=== PATIENT | female | born 1975 | race Caucasian/White ===

== ENCOUNTER 2017-04-09 14:56 | Emergency (ER) | payer MEDICAID, SELFPAY ==
[2017-04-09 15:18] VITALS: BP 148/92; PULSE 94; RESP 20; TEMP 36.8; O2SAT 100; BMI 29.0
--- NOTE | 2017-04-09 15:58 | HMH.EDUTC ---
[facility] [place] Disposition Clinical Impression: Carpal tunnel syndrome of left wrist Disposition: Home, Self-Care Condition on Discharge: Good Instructions: DI for Carpal Tunnel Syndrome Additional Instructions: Read attached education Wrist splint again for immobilization Elevate Ibuprofen as needed Follow up with ortho again. might be time to consider the surgery unless you have the option of changing your job See workman's comp form Referrals: Vikas Rivrea MD [Staff Physician] - (Call tomorrow and schedule follow up appointment. Be sure they know you were here so they can review the xray. You shouldn't have any problem since you were a patient there recently. If so, be sure to let me know.) Time of Disposition: 17:46 Medical Decision Making Vital Signs: 04/09/17 15:18 04/09/17 17:54 Temperature 98.3 F 98 F Temperature Source Temporal Artery Scan Pulse Rate 77 Pulse Rate [Right Brachial] 94 H Respiratory Rate 20 20 Blood Pressure 127/77 Blood Pressure [Right Arm] 148/92 Blood Pressure Mean [Right Arm] 110 Blood Pressure Source [Right Arm] Automatic Cuff Blood Pressure Position [Right Arm] Sitting 02 Sat by Pulse Oximetry 100 Oxygen Delivery Method Room Air - Radiology Data #1 Image(s): Wrist Image Reviewed: Yes I reviewed the patient's radiology image w/the ED provider Rvwd with ELENA Canales MD. No acute findings - [place] Inquiry Pt receiving controlled substance: No [facility] [place] HPI - General Stated complaint: left wrist pain Time Seen by Provider: 04/09/17 15:58 Mode of Arrival: Ambulatory Source of Information: Patient Limitations: No Limitations Description of Symptoms (Recalled from Triage Doc. by RN): PT C/O LEFT WRIST PAIN THAT SHE BELIEVES IS D/T HER CARPAL TUNNEL HEENT Symptoms (Recalled from RN notes): No Resp Symptoms (Recalled from RN notes): No Skin Symptoms (Recalled from RN notes): No MS Symptoms (Recalled from RN notes): Yes (LEFT WRIST PAIN) Functional Status (Recalled from RN notes): N/A - History of Present Illness Provider Complaint: c/o left wrist pain again. Hx of same pain. Saw ortho Jan 2017. Reports Dr. Rivera suggested she have CTS release but went symptoms resolved once moved to a new position at work, she canceled surgery. She was moved back to old position 2 weeks ago and after only 2-3 days, pain returned. She requested to be moved and again, pain resolved. Yesterday she went back to old job again and within hours while lifting a track out of a back, she felt a pop in her left wrist and pain was immediately back again. Accompanied with N/T feeling digits 3-5 as has been in the past. Denies swelling or limited ROM. Did report this at work. they moved her to a new job the remainder of the day then she called in today to get seen. No treatment prior to arrival. Denies having splints for wrists. insurance wouldn't pay for me to get them last time . - Related Data Home Medications Medication Instructions Recorded Confirmed [id number]-[id number] 2 cap PO Q4H PRN 03/26/17 50 mg-300 mg-40 mg capsule lisinopril 20 mg tablet 20 mg PO QDAY 03/26/17 quetiapine 300 mg tablet See Label Instructions PO ONCE 03/26/17 sertraline 100 mg tablet 100 mg PO BID tab 03/26/17 Allergies Allergy/AdvReac Type Severity Reaction Status Date / Time No Known Allergies Allergy Verified 03/26/17 08:52 - Worker's Comp Is this a Worker's Comp case?: Yes Is this an H Worker's Comp?: No Is this a [place] Worker's Comp?: No [facility] History I have reviewed the patient's past medical history: Yes Medical History: Reports:: Depression, Hypertension Denies:: Cancer, Diabetes Mellitus Type 1, Diabetes Mellitus Type 2, MRSA Other Medical History: Reports: Other (bipolar, insomia) Other Surgeries: Yes: Tubal Ligation Amputation: No - *Social History Smoking Status: Current every day smoker Tobacco Type: cigarettes Alcohol Intake: never - Psychiat
--- NOTE | 2017-04-09 16:09 | XR_ITS ---
XR wrist LT min 3V HISTORY: Posttraumatic pain ITS.REASON: hx CTS, felt pop at work yesterday, pain since ORDERING PHYSICIAN: Kingsley Tomlinson PATIENT AGE: 41 years COMPARISON: None FINDINGS: No fracture or dislocation. No lytic or blastic change. There is normal mineralization.. The joint spaces are well-preserved. No significant degenerative/arthritic changes. No erosive changes evident.. IMPRESSION: Negative wrist
--- NOTE | 2017-04-09 16:09 | ED_ITS ---
[facility] [place] Clinical Impression: Carpal tunnel syndrome of left wrist Disposition: Home, Self-Care Condition on Discharge: Good Instructions: DI for Carpal Tunnel Syndrome Additional Instructions: Read attached education Wrist splint again for immobilization Elevate Ibuprofen as needed Follow up with ortho again. might be time to consider the surgery unless you have the option of changing your job See workman's comp form Referrals: Vikas Rivera MD [Staff Physician] - (Call tomorrow and schedule follow up appointment. Be sure they know you were here so they can review the xray. You shouldn't have any problem since you were a patient there recently. If so, be sure to let me know.) Time of Disposition: 17:46 Medical Decision Making Vital Signs: 04/09/17 15:18 04/09/17 17:54 Temperature 98.3 F 98 F Temperature Source Temporal Artery Scan Pulse Rate 77 Pulse Rate [Right Brachial] 94 H Respiratory Rate 20 20 Blood Pressure 127/77 Blood Pressure [Right Arm] 148/92 Blood Pressure Mean [Right Arm] 110 Blood Pressure Source [Right Arm] Automatic Cuff Blood Pressure Position [Right Arm] Sitting 02 Sat by Pulse Oximetry 100 Oxygen Delivery Method Room Air - Radiology Data #1 Image(s): Wrist Image Reviewed: Yes I reviewed the patient's radiology image w/the ED provider Rvwd with ELENA Canales MD. No acute findings - [place] Inquiry Pt receiving controlled substance: No [facility] [place] HPI - General Stated complaint: left wrist pain Time Seen by Provider: 04/09/17 15:58 Mode of Arrival: Ambulatory Source of Information: Patient Limitations: No Limitations Description of Symptoms (Recalled from Triage Doc. by RN): PT C/O LEFT WRIST PAIN THAT SHE BELIEVES IS D/T HER CARPAL TUNNEL HEENT Symptoms (Recalled from RN notes): No Resp Symptoms (Recalled from RN notes): No Skin Symptoms (Recalled from RN notes): No MS Symptoms (Recalled from RN notes): Yes (LEFT WRIST PAIN) Functional Status (Recalled from RN notes): N/A - History of Present Illness Provider Complaint: c/o left wrist pain again. Hx of same pain. Saw ortho Jan 2017. Reports Dr. Rivera suggested she have CTS release but went symptoms resolved once moved to a new position at work, she canceled surgery. She was moved back to old position 2 weeks ago and after only 2-3 days, pain returned. She requested to be moved and again, pain resolved. Yesterday she went back to old job again and within hours while lifting a track out of a back, she felt a pop in her left wrist and pain was immediately back again. Accompanied with N/T feeling digits 3-5 as has been in the past. Denies swelling or limited ROM. Did report this at work. they moved her to a new job the remainder of the day then she called in today to get seen. No treatment prior to arrival. Denies having splints for wrists. insurance wouldn't pay for me to get them last time . - Related Data Home Medications Medication Instructions Recorded Confirmed [id number]-vmtrlruvcuzqj-[id number] 2 cap PO Q4H PRN 03/26/17 50 mg-300 mg-40 mg capsule lisinopril 20 mg tablet 20 mg PO QDAY 03/26/17 quetiapine 300 mg tablet See Label Instructions PO ONCE 03/26/17 sertraline 100 mg tablet 100 mg PO BID tab 03/26/17 Allergies Allergy/AdvReac Type Severity Reaction Status Date / Time No Known Allergies Allergy Verified 03/26/17 08:52
--- NOTE | 2017-04-09 16:39 | PC.NURSE ---
PT RETURNED FROM XRAY AT THIS TIME.
[2017-04-09 17:54] VITALS: BP 127/77; PULSE 77; RESP 20; TEMP 36.6; O2SAT 98
== END 2017-04-09 17:55 | disposition home or self-care (01) ==
PROVIDERS: Emergency Provider Nurse Practitioner Family; Family Provider Emergency Medicine
DX: G56.02 Carpal tunnel syndrome, left upper limb (principal); I10 Essential (primary) hypertension; F17.210 Nicotine dependence, cigarettes, uncomplicated; X50.0XXA Overexertion from strenuous movement or load, initial encounter; Y92.69 Other specified industrial and construction area as the place of occurrence of the external cause; Y99.0 Civilian activity done for income or pay
CPT/HCPCS: 29125; 73110; 99202

== ENCOUNTER → 2017-07-25 10:34 | Outpatient (CLI) | payer MEDICAID, SELFPAY ==
[2017-07-25 10:57] LABS: Basophils # 0.1 K/mm3 (0-0.2); Basophils % 0.8 % (0.1-2.0); Eosinophils # 0.3 K/mm3 (0.0-0.4); Eosinophils % 3.2 % (0.1-12.0); Hematocrit 45.7 % (37.0-47.0); Hemoglobin 14.8 g/dL (12.2-16.2); Lymphocytes # 2.7 K/mm3 (0.7-4.5); Lymphocytes % 34.3 K/mm3 (10-50); Mean Corpuscular HGB Conc 32.4 g/dL (31.8-35.4); Mean Corpuscular Hemoglobin 29.1 pg (27.0-31.2); Mean Corpuscular Volume 89.6 fl (81-99); Monocytes # 0.5 K/mm3 (0.1-1.0); Monocytes % 6.7 % (1.7-9.3); Neutrophils # 4.4 K/mm3 (1.8-7.8); Platelet Count 275 K/mm3 (142-424); Red Cell Distribution Width 13.7 % (11.5-17.5); White Blood Count 7.9 K/mm3 (4.8-10.8)
[2017-07-25 11:10] LABS: Urine Pregnancy, HCG Qual. Negative (Negative)
[2017-07-25 11:39] LABS: Anion Gap 10.6 mEq/L (5-15); Blood Urea Nitrogen 11 mg/dL (7-18); Carbon Dioxide 30 mmol/L (21.0-32.0); Chloride 102 mmol/L (98-107); Creatinine,Serum 0.76 mg/dL (0.55-1.02); Estimated Glomerular Filt Rate 83 ml/min (>60); GFR (African American) 101 ML/MIN (>60); Potassium 4.6 mmoL/L (3.5-5.1); Sodium 138 mmol/L (136-145)
[2017-07-25 11:46] LABS: Glucose 97 mg/dL (74-106)
== END ==
PROVIDERS: Visit Provider Emergency Medicine
DX: Z01.818 Encounter for other preprocedural examination (principal); G56.02 Carpal tunnel syndrome, left upper limb
CPT/HCPCS: 36415; 80048; 81025; 85025; 93005

== ENCOUNTER 2020-05-04 21:10 | Emergency (ER) | payer MEDICAID, SELFPAY ==
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
[2020-05-04 21:20] VITALS: BP 158/100; PULSE 110; RESP 18; TEMP 36.4; O2SAT 100; BMI 31.6
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
[2020-05-04 21:34] LABS: Basophils # 0.1 K/mm3 (0-0.2); Basophils % 0.4 % (0.1-2.0); Eosinophils # 0.3 K/mm3 (0.0-0.4); Eosinophils % 1.9 % (0.1-12.0); Hematocrit 44.2 % (37.0-47.0); Hemoglobin 14.6 g/dL (12.2-16.2); Lymphocytes # 2.3 K/mm3 (0.7-4.5); Lymphocytes % 15.6 % (10-50); Mean Corpuscular HGB Conc 32.9 g/dL (31.8-35.4); Mean Corpuscular Hemoglobin 28.9 pg (27.0-31.2); Mean Corpuscular Volume 87.7 fl (81-99); Mean Platelet Volume 7.9 fl (7.4-10.4); Monocytes # 0.6 K/mm3 (0.1-1.0); Monocytes % 4.3 % (1.7-9.3); Neutrophils # 11.6 K/mm3 (1.8-7.8); Neutrophils % 77.8 % (37.0-80.0); Platelet Count 274 K/mm3 (142-424); Red Blood Count 5.04 M/mm3 (4.20-5.40); Red Cell Distribution Width 13.2 % (11.5-17.5); White Blood Count 14.9 K/mm3 (4.8-10.8)
[2020-05-04 21:37] LABS: Chloride 103 mmol/L (98-107); Sodium 139 mmol/L (136-145)
[2020-05-04 21:40] LABS: Alanine Aminotransferase 19 U/L (12-78); Albumin Level 5.2 g/dl (3.5-5.0); Albumin/Globulin Ratio 1.2 (1.1-1.8); Alkaline Phosphatase 75 U/L (38-126); Aspartate Amino Transferase 27 U/L (14-36); Bilirubin,Total 0.4 mg/dl (0.2-1.3); Blood Urea Nitrogen 13 mg/dl (7-17); Carbon Dioxide 28 mmol/L (22.0-30.0); Creatinine Clearance Estimated 107 mL/min (50-200); Estimated Glomerular Filt Rate 68 ml/min (>60); GFR (African American) 82 ML/MIN (>60); Globulin 4.5 g/dL (1.3-3.2); Total Protein,Serum 9.7 g/dl (6.3-8.2)
[2020-05-04 21:41] LABS: Calcium 10.3 mg/dl (8.4-10.2); Glucose 113 mg/dl (74-100)
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
--- NOTE | 2020-05-04 22:23 | PC.NURSE ---
TDAP consent signed and placed on chart
[2020-05-04 22:32] VITALS: BP 160/96; PULSE 104; RESP 18; TEMP 36.6; O2SAT 96
== END 2020-05-04 22:34 | disposition home or self-care (01) ==
PROVIDERS: Emergency Provider Emergency Medicine; PCP Emergency Medicine
DX: S31.113A Laceration without foreign body of abdominal wall, right lower quadrant without penetration into peritoneal cavity, initial encounter (principal); S41.111A Laceration without foreign body of right upper arm, initial encounter; X99.1XXA Assault by knife, initial encounter; Y92.019 Unspecified place in single-family (private) house as the place of occurrence of the external cause; Z23 Encounter for immunization; I10 Essential (primary) hypertension; F41.9 Anxiety disorder, unspecified; F17.290 Nicotine dependence, other tobacco product, uncomplicated
CPT/HCPCS: 12002; 74177; 80053; 85025; 90471; 90714; 99283; Q9967

== ENCOUNTER 2021-06-28 19:45 | Emergency (ER) | payer MEDICAID, SELFPAY ==
[2021-06-28] VITALS (8 sets, daily range): BP systolic 150–183; BP diastolic 82–149; PULSE 70–87; RESP 18; TEMP 36.7–36.8; O2SAT 95–98; BMI 30.9
--- NOTE | 2021-06-28 20:10 | XR_ITS ---
PROCEDURE INFORMATION: Exam: XR Chest Exam date and time: 06/28/2021 8:20 PM Age: 46 years old Clinical indication: Other: Dizziness; Sternal or substernal pain; Additional info: ARBOLEDA dizziness TECHNIQUE: Imaging protocol: XR of the chest. Views: 1 view. COMPARISON: CR CXR CHEST(2 VIEWS-NOT PORTABLE) 01/17/2017 10:25 AM FINDINGS: Lungs: No consolidation. Pleural spaces: No pneumothorax. Heart/Mediastinum: No cardiomegaly. Bones/joints: No acute abnormality. IMPRESSION: No acute findings.
--- NOTE | 2021-06-28 20:13 | ECG_ITS ---
APPROVED REPORT Exam: Resting ECG HR:79 bpm ECG Measurements Heart Rate 79 AXES VA 134 P 18 QRSd 95 QRS 17 QT 385 T 56 QTc 419 Conclusion SINUS RHYTHM NORMAL ECG UNCONFIRMED REPORT Electronically signed by : Archie Kruse MD 06/29/2021 08:09:10
[2021-06-28 20:49] LABS: Basophils # 0.1 K/mm3 (0-0.2); Basophils % 1.8 % (0.1-2.0); Eosinophils # 0.2 K/mm3 (0.0-0.4); Eosinophils % 2.7 % (0.1-12.0); Hematocrit 42.3 % (37.0-47.0); Lymphocytes # 1.6 K/mm3 (0.7-4.5); Lymphocytes % 25.9 % (10-50); Mean Corpuscular HGB Conc 33.1 g/dL (31.8-35.4); Mean Corpuscular Hemoglobin 28.1 pg (27.0-31.2); Mean Corpuscular Volume 84.9 fl (81-99); Mean Platelet Volume 8.4 fl (7.4-10.4); Monocytes # 0.6 K/mm3 (0.1-1.0); Monocytes % 9.3 % (1.7-9.3); Neutrophils # 3.8 K/mm3 (1.8-7.8); Neutrophils % 60.3 % (37.0-80.0); Platelet Count 234 K/mm3 (142-424); Red Blood Count 4.99 M/mm3 (4.20-5.40); Red Cell Distribution Width 13.8 % (11.5-17.5); White Blood Count 6.2 K/mm3 (4.8-10.8)
[2021-06-28 20:55] LABS: Alanine Aminotransferase 19 U/L (12-78); Albumin Level 3.9 g/dl (3.5-5.0); Albumin/Globulin Ratio 1.2 (1.1-1.8); Alkaline Phosphatase 58 U/L (38-126); Anion Gap 8.3 mEq/L (5-15); Aspartate Amino Transferase 24 U/L (14-36); Bilirubin,Total 0.4 mg/dl (0.2-1.3); Blood Urea Nitrogen 4 mg/dl (7-17); Calcium 8.9 mg/dl (8.4-10.2); Carbon Dioxide 30 mmol/L (22.0-30.0); Chloride 100 mmol/L (98-107); Creatinine Clearance Estimated 129 mL/min (50-200); Estimated Glomerular Filt Rate 90 ml/min (>60); GFR (African American) 109 ML/MIN (>60); Globulin 3.2 g/dL (1.3-3.2); Glucose 105 mg/dl (74-100); Potassium 3.3 mmoL/L (3.5-5.1); Sodium 135 mmol/L (136-145); Total Protein,Serum 7.1 g/dl (6.3-8.2)
[2021-06-28 21:00] LABS: C-Reactive Protein 22.3 mg/L (0-4)
[2021-06-28 21:09] LABS: Troponin I < 0.01 ng/ml (0.00-0.034)
[2021-06-28 21:14] LABS: Procalcitonin 0.168 ng/mL (0.0-2.0)
[2021-06-28 21:39] LABS: Erythrocyte Sedimentation Rate 25 mm/hr (0-20)
--- NOTE | 2021-06-28 22:21 | HMH.EDDIZZ ---
ED Disposition Clinical Impression: Hypertensive emergency Disposition: Home, Self-Care Condition on Discharge: Good Instructions: Dizziness, Nonvertigo Additional Instructions: use meds and see pcp for follow up and monitor bp and record for office visit Prescriptions: lisinopriL [Lisinopril] 20 mg PO DAILY #30 tab Transmission Status: Pending to [facility] Referrals: Aung Mckinley MD [Primary Care Provider] - - Critical Care Critical Care Time: No Attestation: On 06/28/21, the high probability of a clinically significant, sudden or life threatening deterioration of the following system(s) required my full and direct attention, intervention and personal management. The time I documented below is in addition to time spent performing reported procedures but includes the following listed in this critical care notation. Medical Decision Making - Medical Records Medical records reviewed: Yes: I reviewed the patient's medical records. - [place]mer Inquiry Pt receiving controlled substance: No Vital Signs: 06/28/21 19:46 06/28/21 20:10 06/28/21 20:30 Temperature 98.0 F Temperature Source Oral Pulse Rate 80 83 Pulse Rate [Right] 85 Respiratory Rate 18 Blood Pressure 161/104 H 159/102 H Blood Pressure [Right Arm] 159/98 H Blood Pressure Mean 127 123 Blood Pressure Mean [Right Arm] 118 02 Sat by Pulse Oximetry 98 95 95 06/28/21 21:00 06/28/21 21:25 06/28/21 22:00 Temperature Temperature Source Pulse Rate 85 87 70 Pulse Rate [Right] Respiratory Rate Blood Pressure 183/115 H 183/149 H 164/101 H Blood Pressure [Right Arm] Blood Pressure Mean 135 160 132 Blood Pressure Mean [Right Arm] 02 Sat by Pulse Oximetry 98 97 96 06/28/21 22:09 Temperature Temperature Source Pulse Rate 70 Pulse Rate [Right] Respiratory Rate Blood Pressure 150/98 H Blood Pressure [Right Arm] Blood Pressure Mean 115 Blood Pressure Mean [Right Arm] 02 Sat by Pulse Oximetry 96 - Lab Data Lab results reviewed: Yes: I reviewed the patient's lab results. Lab Results 06/28/21 20:40: WBC 6.2, RBC 4.99, Hgb 14.0, Hct 42.3, MCV 84.9, MCH 28.1, MCHC 33.1, RDW 13.8, Plt Count 234, MPV 8.4, Neut % (Auto) 60.3, Lymph % (Auto) 25.9, [place] % (Auto) 9.3, Eos % (Auto) 2.7, Baso % (Auto) 1.8, Neut # (Auto) 3.8, Lymph # (Auto) 1.6, [place] # (Auto) 0.6, Eos # (Auto) 0.2, Baso # (Auto) 0.1, ESR 25 H 06/28/21 20:40: Sodium 135 L, Potassium 3.3 L, Chloride 100, Carbon Dioxide 30, Anion Gap 8.3, BUN 4 L, Creatinine 0.70, Estimated Creat Clear 129, Estimated GFR 90, Est GFR ( Amer) 109, Glucose 105 H, Calcium 8.9, Total Bilirubin 0.4, AST 24, ALT 19, Alkaline Phosphatase 58, Troponin I < 0.01, C-Reactive Protein 22.3 H, Total Protein 7.1 D, Albumin 3.9, Globulin 3.2, Albumin/Globulin Ratio 1.2, Procalcitonin 0.168 Result diagrams: 06/28/21 20:40 06/28/21 20:40 Orders (Tests/Meds): ED MEDICATIONS Generic Name Dose Route Start Last Admin Trade Name Freq PRN Reason Stop Dose Admin Lactated Ringer's 1,000 mls @ 999 mls/hr 06/28/21 20:45 06/28/21 20:46 Lactated Ringer's 1000 Ml Bag IV 06/28/21 21:45 999 mls/hr .Q1H1M KEI Administration Discontinued Medications Generic Name Dose Route Start Last Admin Trade Name Freq PRN Reason Stop Dose Admin Diphenhydramine HCl 50 mg 06/28/21 20:42 06/28/21 20:46 Diphenhydramine 50mg/Ml Vial IV 06/28/21 20:43 50 mg ONCE ONE Administration Ketorolac Tromethamine 30 mg 06/28/21 20:42 06/28/21 20:46 Ketorolac 30mg/Ml Vial IV 06/28/21 20:43 30 mg ONCE ONE Administration Lisinopril 20 mg 06/29/21 09:00 Lisinopril 20mg Tablet PO 07/29/21 08:59 DAILY KEI Lisinopril 20 mg 06/28/21 21:20 06/28/21 21:22 Lisinopril 20mg Tablet PO 06/28/21 21:21 20 mg ONCE ONE Administration Ondansetron HCl 4 mg 06/28/21 20:42 06/28/21 20:46 Ondansetron 4mg/2ml Vial IV 06/28/21 20:43 4 mg ONCE
[2021-06-28 22:53] LABS: Chol/HDL Ratio 5.4 (1-3.5); Cholesterol 209 mg/dl (140-200); HDL Cholesterol 39 mg/dl (40-60); Triglycerides 172 mg/dl (30-150); VLDL Cholesterol 34 mg/dL (0-40)
[2021-06-28 23:04] LABS: Direct LDL Cholesterol 113.92 mg/dL (100-129)
[2021-06-28 23:12] LABS: Free T4 (Free Thyroxine) 0.79 ng/dl (0.78-2.19)
[2021-06-28 23:27] LABS: Thyroid Stimulating Hormone 1.16 uIU/mL (0.465-4.68)
== END 2021-06-28 22:48 | disposition home or self-care (01) ==
PROVIDERS: Emergency Provider Emergency Medicine; PCP Emergency Medicine
DX: I16.1 Hypertensive emergency (principal); R42 Dizziness and giddiness; R51.9 Headache, unspecified; R11.10 Vomiting, unspecified; I10 Essential (primary) hypertension; E78.5 Hyperlipidemia, unspecified; F32.A Depression, unspecified; F41.9 Anxiety disorder, unspecified; F17.210 Nicotine dependence, cigarettes, uncomplicated; Z79.899 Other long term (current) drug therapy; Z82.49 Family history of ischemic heart disease and other diseases of the circulatory system; Z83.438 Family history of other disorder of lipoprotein metabolism and other lipidemia
CPT/HCPCS: 71045; 80053; 80061; 84145; 84439; 84443; 84484; 85025; 85651; 86140; 93005; 96361; 96374; 96375; 99285; J2405

== ENCOUNTER 2023-03-28 11:51 | Emergency (ER) | payer MEDICAID, SELFPAY ==
[2023-03-28] VITALS (14 sets, daily range): BP systolic 141–224; BP diastolic 89–141; PULSE 68–115; RESP 9–20; TEMP 36.6; O2SAT 94–99; BMI 29.9
--- NOTE | 2023-03-28 12:16 | PC.NURSE ---
Dr. Fowler at [facility] for pt eval
--- NOTE | 2023-03-28 12:21 | ED_ITS ---
Discharge Plan Disposition Patient Disposition: Home, Self-Care Condition: Good Prescriptions Prescriptions: New valsartan 80 mg tablet 80 mg PO DAILY Qty: 30 2RF carvedilol [Coreg] 25 mg tablet 25 mg PO BID Qty: 60 1RF Rx Instructions: must administer with a meal/food No Action lisinopril 20 mg tablet 20 mg PO DAILY Qty: 30 0RF sertraline 100 mg tablet 100 mg PO BID Qty: 180 3RF Rx Instructions: TAKE ONE TABLET BY MOUTH 2 TIMES A DAY FOR DEPRESSION quetiapine 300 MG tablet See Rx Instructions .Route .COMPLEX Rx Instructions: TAKE ONE TABLET BY MOUTH 2 TIMES A DAY FOR DEPRESSION lisinopril 20 MG tablet See Rx Instructions .Route .COMPLEX Rx Instructions: TAKE ONE TABLET BY MOUTH ONCE A DAY Referrals Follow up/Referrals: Mike Curtis [Referring] - See instructions Provider,MD Dorothy [Primary Care Provider] - See instructions Activity Restrictions/Add. Instructions Additional Instructions/Restrictions: You were evaluated in the emergency department today. At this time, it is felt that you are safe to be discharged home with instructions for close follow-up with psychiatry. Please call me listed to schedule an appointment on an outpatient basis. The phone number is [phone]. If you feel unsafe at home or feel that you are at risk of harm yourself, please come to the emergency department right away. I also recommend close follow-up with your primary care provider. Return to the emergency department for new or worsening symptoms. paper supervisor your blood pressure medications at the pharmacy and take them as prescribed. Take your blood pressure twice a day and present your primary care provider with a log of blood pressures at home so that they can make adjustments as needed. Clinical Impressions Clinical Impression: Depression, High blood pressure Instructions Patient Instructions: Depression, DI for High Blood Pressure, DI for Anxiety -- Adult Discharge ED Provider: Alena Camara General Adult HPI <Unruly Fowler MD - Last Filed: 03/28/23 14:54> General Chief complaint: Psychiatric Symptoms Stated complaint: states mental breakdown Time Seen by Provider: 03/28/23 11:59 Mode of Arrival: Ambulatory Source of Information: Patient Limitations: No Limitations Description of Symptoms (Recalled from ER Triage Doc. by RN): Patient reports she feels like she is having a nervous breakdown. States she has had thoughts of self harm today with a plan to shoot herself. Patient states she has been unmedicated for about 2 years and has a lot going on in her life and just having a hard time. History of Present Illness HPI narrative: 47-year-old female with hypertension, hyperlipidemia, anxiety, bipolar 1 disorder not currently medicating any of her comorbidities presenting with chief complaint of I am losing my mind, . Patient's dates that she has had numerous social stressors including verbal disagreements with family and at home, close immediate relatives being incarcerated, financial insecurity, etc. For the past couple of weeks, patient has had thoughts on and off of hurting herself stating that her plan would be to shoot herself, but she does not actually plan on proceeding with this because she has too many kids and grandkids who are depending on her. Denies any active SI or HI, chest pain, hallucinations, or any other concerns at this time. Related Data Home Medications Medication Instructions Recorded Confirmed lisinopril 20 mg tablet See Rx Instructions .Route 06/28/21 06/28/21 .COMPLEX High blood pressure quetiapine 300 mg tablet See Rx Instructions .Route 06/28/21 06/28/21 .COMPLEX sleep Previous Rx's Medication Instructions Recorded lisinopril 20 mg tablet 20 mg PO DAILY #30 tabs 07/19/21 sertraline 100 mg tablet 100 mg PO BID Depression #180 tabs 07/19/21 carvedilol 25 mg tablet (Coreg) 25 mg PO BID #60 tabs 03/28/23 valsartan 80 mg tablet 80 mg PO DAILY #30 tabs 03/28/23 Allergies Allergy/AdvReac Type Severity Reaction Status Date / Time No Known Allergies Allergy Verified 07/07/18 10:48 [facility] <Unruly Fowler MD - Last Filed: 03/28/23 14:54> [facility] Disclaimer: The information contained in this section may have been updated after the patient was seen, as this information can be updated by other users. Medical History (Updated 03/28/23 @ 15:35 by Alena Camara DO) Anxiety Hyperlipidemia Hypertension Social History Smoking Status: Former smoker tobacco type: cigarettes packs per day: 0 second hand exposure: Yes alcohol intake: never substance use type: denies use current occupational status: unemployed Travel in the last 8 weeks: None household members: spouse housing: house current occupational exposures/hazards: No caffeine: No <Unruly Fowler MD - Last Filed: 03/28/23 14:54> ROS Obtained: Yes All systems reviewed & no additional complaints except as documented Physical Exam <Unruly Fowler MD - Last Filed: 03/28/23 14:54> General General appearance: alert and in no apparent distress Head Head exam: atraumatic and normocephalic Eye Eye exam: Present normal appearance, PERRL and EOMI ENT ENT exam: Present mucous membranes moist Neck Neck exam: Present normal inspection, full ROM and trachea midline Respiratory Respiratory exam: Absent respiratory distress, wheezes, stridor, accessory muscle use or prolonged expiratory phase Cardiovascular Cardiovascular exam: Present normal rhythm Abdominal Exam Abdominal exam: Present soft; Absent distention, tenderness, guarding, rebound or rigidity Extremities Exam Extremities exam: Absent edema Neurological Exam Neurological exam: Present alert, oriented X3, CN II-XII intact and normal gait; Absent motor sensory deficit Skin Skin exam: Present warm and dry; Absent diaphoresis or erythema Medical Decision Making <Unruly Fowler MD - Last Filed: 03/28/23 14:54> Medical Records Medical records reviewed: Yes I reviewed the patient's medical records. [place] Inquiry Pt receiving controlled substance: No [place] was queried for this patient: No Vital Signs: 03/28/23 11:52 03/28/23 12:55 03/28/23 12:44 Temperature 97.8 F Temperature Source Oral Pulse Rate 105 H Pulse Rate [Right] 115 H Respiratory Rate 20 Blood Pressure 224/141 H 224/141 H Blood Pressure Mean Blood Pressure Source 02 Sat by Pulse Oximetry 98 97 Oxygen Delivery Method Room Air Room Air 03/28/23 13:01 03/28/23 13:30 03/28/23 14:00 Temperature Temperature Source Pulse Rate 76 78 73 Pulse Rate [Right] Respiratory Rate 20 Blood Pressure 193/112 H 197/122 H 203/113 H Blood Pressure Mean 143 Blood Pressure Source 02 Sat by Pulse Oximetry 96 94 L 95 Oxygen Delivery Method Room Air Room Air 03/28/23 14:30 03/28/23 14:37 03/28/23 15:32 Temperature Temperature Source Pulse Rate 78 68 Pulse Rate [Right] Respiratory Rate 20 18 Blood Pressure 191/106 H 191/106 H 141/98 H Blood Pressure Mean 134 Blood Pressure Source Automatic Cuff 02 Sat by Pulse Oximetry 95 95 Oxygen Delivery Method Room Air 03/28/23 15:01 03/28/23 15:30 03/28/23 17:03 Temperature 97.8 F Temperature Source Oral Pulse Rate 72 70 72 Pulse Rate [Right] Respiratory Rate 20 20 9 L Blood Pressure 152/89 H 164/100 H 152/97 H Blood Pressure Mean 110 113 Blood Pressure Source Automatic Cuff 02 Sat by Pulse Oximetry 97 97 Oxygen Delivery Method Room Air 03/28/23 16:00 03/28/23 16:31 Temperature Temperature Source Pulse Rate 73 68 Pulse Rate [Right] Respiratory Rate Blood Pressure 191/114 H 172/102 H Blood Pressure Mean 134 125 Blood Pressure Source 02 Sat by Pulse Oximetry 98 99 Oxygen Delivery Method Room Air Room Air Lab Data Lab Results 03/28/23 12:35: WBC 11.6 H, RBC 5.55 H, Hgb 16.2, Hct 46.7, MCV 84.1, MCH 29.2, MCHC 34.7, RDW 13.8, Plt Count 254, MPV 8.1, Neut % (Auto) 63.4, Lymph % (Auto) 27.0, [place] % (Auto) 5.5, Eos % (Auto) 3.0, Baso % (Auto) 1.1, Neut # (Auto) 7.3, Lymph # (Auto) 3.1, [place] # (Auto) 0.6, Eos # (Auto) 0.4, Baso # (Auto) 0.1, Sodium 138, Potassium 3.6, Chloride 100, Carbon Dioxide 29, Anion Gap 12.6, BUN 10, Creatinine 0.90, Estimated Creat Clear 100, Estimated GFR 67, Est GFR ( Amer) 81, Glucose 132 H, Calcium 10.0, Total Bilirubin 0.7, AST 31, ALT 30, Alkaline Phosphatase 68, Total Protein 8.0, Albumin 4.4, Globulin 3.6 H, Albumin/Globulin Ratio 1.2, Salicylates < 1.0 L, Urine Opiates Screen Negative, Urine Methadone Screen Negative, Acetaminophen < 10 L, Ur Barbituates Screen Negative, Ur Phencyclidine Scrn Negative, Ur Amphetamines Screen TNP, U Benzodiazepines Scrn Negative, Urine Cocaine Screen Negative, U Marijuana (THC) Screen Positive H, Plasma/Serum Alcohol < 10 03/28/23 12:39: Urine Color Yellow, Urine Appearance Clear, Urine pH 6.0, Ur Specific [place] >= 1.030, Urine Protein 2+, Urine Glucose (UA) Negative, Urine Ketones Negative, Urine Blood Negative, Urine Nitrate Negative, Urine Bilirubin Negative, Urine Urobilinogen 1.0, Ur Leukocyte Esterase Trace, Urine RBC None, Urine WBC Occasional, Ur Squamous Epith Cells Occasional, Urine Bacteria Trace 03/28/23 12:35 03/28/23 12:35 Orders (Tests/Meds): ED MEDICATIONS Discontinued Medications Generic Name Dose Route Start Last Admin Trade Name Miroslava PRN Reason Stop Dose Admin Carvedilol 12.5 mg 03/28/23 12:19 03/28/23 12:29 Carvedilol 12.5mg Tablet PO 03/28/23 12:20 12.5 mg ONCE ONE Administration Hydroxyzine Pamoate 50 mg 03/28/23 14:32 03/28/23 14:38 Hydroxyzine Pamoate 25mg Capsule PO 03/28/23 14:33 50 mg ONCE ONE Administration Labetalol HCl 10 mg 03/28/23 13:00 03/28/23 12:55 Labetalol 20mg/4ml Syringe IV 03/28/23 13:01 10 mg ONCE ONE Administration Labetalol HCl 10 mg 03/28/23 14:32 03/28/23 14:37 Labetalol 20mg/4ml Syringe IV 03/28/23 14:33 10 mg ONCE ONE Administration ORDERS Category Date Time Status Acetaminophen Stat Lab 03/28/23 12:35 Completed CBC w/Auto Diff [Complete Blood Count Auto Diff] Stat Lab 03/28/23 12:35 Completed CMP [Comprehensive Metabolic Panel] Stat Lab 03/28/23 12:35 Completed Drug Screen,Urine Stat Lab 03/28/23 12:35 Completed Ethanol [Ethyl Alcohol] Stat Lab 03/28/23 12:35 Completed Salicylate Stat Lab 03/28/23 12:35 Completed UA [Urinalysis and Microscopic] Stat Lab 03/28/23 12:39 Completed ECG initial Besson Routine Y 03/28/23 13:09 Completed Medical Decision Narrative: 47-year-old female with hypertension, hyperlipidemia, anxiety, bipolar 1 disorder not currently medicating any of her comorbidities presenting with chief complaint of I am losing my mind, . Patient's dates that she has had numerous social stressors including verbal disagreements with family and at home, close immediate relatives being incarcerated, financial insecurity, etc. For the past couple of weeks, patient has had thoughts on and off of hurting herself stating that her plan would be to shoot herself, but she does not actually plan on proceeding with this because she has too many kids and grandkids who are depending on her. Denies any active SI or HI, chest pain, hallucinations, or any other concerns at this time. Patient states she does not drink or use any illicit drugs other than marijuana occasionally. It should be noted that patient does not control any of her comorbidities including hypertension and psychiatric comorbidities complicating care. History was obtained via conversation with patient. On arrival, patient hemodynamically stable, alert, oriented x4, appropriate, GCS 15, moving all extremities spontaneously, pupils equal and reactive to light. Full physical exam performed and significant for well-appearing woman in no acute distress. Significantly hypertensive 260 systolic over 150 diastolic. Asymptomatic at this time without any complaints. Cardiopulmonary exam otherwise within normal limits. Patient nondiaphoretic, pupils are equal and symmetric at 2 mm, not responding to internal stimuli or having pressured speech. Overall unremarkable exam. Differential includes psychiatric disturbance including antwan, hypomania, etc, medication induced, intoxication, withdrawal, among others. Patient was given Coreg 12.5 mg p.o., 10 mg IV labetalol for symptomatic management and correction of underlying abnormalities. Workup independently interpreted and significant for negative CBC and chemistry. Salicylates, acetaminophen, ethanol negative. See radiology read for full revi ew of final results. Independent interpretation of EKG shows sinus tachycardia [address] or T wave changes concerning for acute ischemia. DC, QRS, QT intervals within normal limits. [place] normal. Tox labs negative. Urinary studies negative as well. Prior to conversation with psychiatric facility and final disposition, care handed off to oncoming physician. I do feel that this patient is probably good for home-going, she has a stable support system, numerous preventative factors and no current suicidal ideation. <Alena Camara, DO - Last Filed: 03/28/23 18:39> Vital Signs: 03/28/23 11:52 03/28/23 12:55 03/28/23 12:44 Temperature 97.8 F Temperature Source Oral Pulse Rate 105 H Pulse Rate [Right] 115 H Respiratory Rate 20 Blood Pressure 224/141 H 224/141 H Blood Pressure Mean Blood Pressure Source 02 Sat by Pulse Oximetry 98 97 Oxygen Delivery Method Room Air Room Air 03/28/23 13:01 03/28/23 13:30 03/28/23 14:00 Temperature Temperature Source Pulse Rate 76 78 73 Pulse Rate [Right] Respiratory Rate 20 Blood Pressure 193/112 H 197/122 H 203/113 H Blood Pressure Mean 143 Blood Pressure Source 02 Sat by Pulse Oximetry 96 94 L 95 Oxygen Delivery Method Room Air Room Air 03/28/23 14:30 03/28/23 14:37 03/28/23 15:32 Temperature Temperature Source Pulse Rate 78 68 Pulse Rate [Right] Respiratory Rate 20 18 Blood Pressure 191/106 H 191/106 H 141/98 H Blood Pressure Mean 134 Blood Pressure Source Automatic Cuff 02 Sat by Pulse Oximetry 95 95 Oxygen Delivery Method Room Air 03/28/23 15:01 03/28/23 15:30 03/28/23 17:03 Temperature 97.8 F Temperature Source Oral Pulse Rate 72 70 72 Pulse Rate [Right] Respiratory Rate 20 20 9 L Blood Pressure 152/89 H 164/100 H 152/97 H Blood Pressure Mean 110 113 Blood Pressure Source Automatic Cuff 02 Sat by Pulse Oximetry 97 97 Oxygen Delivery Method Room Air 03/28/23 16:00 03/28/23 16:31 Temperature Temperature Source Pulse Rate 73 68 Pulse Rate [Right] Respiratory Rate Blood Pressure 191/114 H 172/102 H Blood Pressure Mean 134 125 Blood Pressure Source 02 Sat by Pulse Oximetry 98 99 Oxygen Delivery Method Room Air Room Air Lab Data Lab Results 03/28/23 12:35: WBC 11.6 H, RBC 5.55 H, Hgb 16.2, Hct 46.7, MCV 84.1, MCH 29.2, MCHC 34.7, RDW 13.8, Plt Count 254, MPV 8.1, Neut % (Auto) 63.4, Lymph % (Auto) 27.0, [place] % (Auto) 5.5, Eos % (Auto) 3.0, Baso % (Auto) 1.1, Neut # (Auto) 7.3, Lymph # (Auto) 3.1, [place] # (Auto) 0.6, Eos # (Auto) 0.4, Baso # (Auto) 0.1, S odium 138, Potassium 3.6, Chloride 100, Carbon Dioxide 29, Anion Gap 12.6, BUN 10, Creatinine 0.90, Estimated Creat Clear 100, Estimated GFR 67, Est GFR ( Amer) 81, Glucose 132 H, Calcium 10.0, Total Bilirubin 0.7, AST 31, ALT 30, Alkaline Phosphatase 68, Total Protein 8.0, Albumin 4.4, Globulin 3.6 H, Albumin/Globulin Ratio 1.2, Salicylates < 1.0 L, Urine Opiates Screen Negative, Urine Methadone Screen Negative, Acetaminophen < 10 L, Ur Barbituates Screen Negative, Ur Phencyclidine Scrn Negative, Ur Amphetamines Screen TNP, U Benzodiazepines Scrn Negative, Urine Cocaine Screen Negative, U Marijuana (THC) Screen Positive H, Plasma/Serum Alcohol < 10 03/28/23 12:39: Urine Color Yellow, Urine Appearance Clear, Urine pH 6.0, Ur Specific [place] >= 1.030, Urine Protein 2+, Urine Glucose (UA) Negative, Urine Ketones Negative, Urine Blood Negative, Urine Nitrate Negative, Urine Bilirubin Negative, Urine Urobilinogen 1.0, Ur Leukocyte Esterase Trace, Urine RBC None, Urine WBC Occasional, Ur Squamous Epith Cells Occasional, Urine Bacteria Trace Orders (Tests/Meds): ED MEDICATIONS Discontinued Medications Generic Name Dose Route Start Last Admin Trade Name Randallq PRN Reason Stop Dose Admin Carvedilol 12.5 mg 03/28/23 12:19 03/28/23 12:29 Carvedilol 12.5mg Tablet PO 03/28/23 12:20 12.5 mg ONCE ONE Administration Hydroxyzine Pamoate 50 mg 03/28/23 14:32 03/28/23 14:38 Hydroxyzine Pamoate 25mg Capsule PO 03/28/23 14:33 50 mg ONCE ONE Administration Labetalol HCl 10 mg 03/28/23 13:00 03/28/23 12:55 Labetalol 20mg/4ml Syringe IV 03/28/23 13:01 10 mg ONCE ONE Administration Labetalol HCl 10 mg 03/28/23 14:32 03/28/23 14:37 Labetalol 20mg/4ml Syringe IV 03/28/23 14:33 10 mg ONCE ONE Administration ORDERS Category Date Time Status Acetaminophen Stat Lab 03/28/23 12:35 Completed CBC w/Auto Diff [Complete Blood Count Auto Diff] Stat Lab 03/28/23 12:35 Completed CMP [Comprehensive Metabolic Panel] Stat Lab 03/28/23 12:35 Completed Drug Screen,Urine Stat Lab 03/28/23 12:35 Completed Ethanol [Ethyl Alcohol] Stat Lab 03/28/23 12:35 Completed Salicylate Stat Lab 03/28/23 12:35 Completed UA [Urinalysis and Microscopic] Stat Lab 03/28/23 12:39 Completed ECG initial Bess[place] Routine Y 03/28/23 13:09 Completed Medical Decision Narrative: 47-year-old female with hypertension, hyperlipidemia, anxiety, bipolar 1 disorder not currently medicating any of her comorbidities presenting with chief complaint of I am losing my mind, . Patient's dates that she has had numerous social stressors including verbal disagreements with family and at home, close immediate relatives being incarcerated, financial insecurity, etc. For the past couple of weeks, patient has had thoughts on and off of hurting herself stating that her plan would be to shoot herself, but she does not actually plan on proceeding with this because she has too many kids and grandkids who are depending on her. Denies any active SI or HI, chest pain, hallucinations, or any other concerns at this time. Patient states she does not drink or use any illicit drugs other than marijuana occasionally. It should be noted that patient does not control any of her comorbidities including hypertension and psychiatric comorbidities complicating care. History was obtained via conversation with patient. On arrival, patient hemodynamically stable, alert, oriented x4, appropriate, GCS 15, moving all extremities spontaneously, pupils equal and reactive to light. Full physical exam performed and significant for well-appearing woman in no acute distress. Significantly hypertensive 260 systolic over 150 diastolic. Asymptomatic at this time without any complaints. Cardiopulmonary exam otherwise within normal limits. Patient nondiaphoretic, pupils are equal and symmetric at 2 mm, not responding to internal stimuli or having pressured speech. Overall unremarkable exam. Differential includes psychiatric disturbance including antwan, hypomania, etc, medication induced, intoxication, withdrawal, among others. Patient was given Coreg 12.5 mg p.o., 10 mg IV labetalol for symptomatic management and correction of underlying abnormalities. Workup independently interpreted and significant for negative CBC and chemistry. Salicylates, acetaminophen, ethanol negative. See radiology read for full review of final results. Independent interpretation of EKG shows sinus tachycardia [address] or T wave changes concerning for acute ischemia. DC, QRS, QT intervals within normal limits. [place] normal. Tox labs negative. Urinary studies negative as well. Prior to conversation with psychiatric facility and final disposition, care handed off to oncoming physician. I do feel that this patient is probably good for home-going, she has a stable support system, numerous preventative factors and no current suicidal ideation. DO Jax: On my assessment of the patient, she denies any thoughts of hurting herself or anyone else. She denies any suicidal ideation at all. She had a c onsultation with Silvestre Fong who declined need for inpatient evaluation. Patient then was set up with an appointment with bro Hunt to follow-up outpatient. For her blood pressure, she was started on medications per Dr. Fowler. She was discharged home with prescriptions for Coreg and valsartan g iven instructions for close follow-up and monitoring of her blood pressure at home. She was given strict return precautions and was discharged in stable condition. Critical Care <Unruly Fowler MD - Last Filed: 03/28/23 14:54> Critical Care Time Critical Care Time: No
--- NOTE | 2023-03-28 12:21 | PC.NURSE ---
Manual BP: 230/142 L. Ash RN notified
[2023-03-28] MEDS: CARVEDILOL 12.5MG TABLET 12.5 MG PO (12:29)
[2023-03-28 12:42] LABS: Microscopic, Urine URINE MICROSCOPIC (MICROSCOPIC)
[2023-03-28 12:47] LABS: Appearance,Urine CLEAR (Clear); Bilirubin,Urine Negative (Negative); Blood, Urine Negative (Negative); Color,Urine YELLOW (Yellow); Glucose,Urine (UA) Negative (Negative); Ketones,Urine Negative (Negative); Leukocyte Esterase,Urine TRACE (Negative); Nitrate,Urine Negative (Negative); Protein,Urine 2+ (Negative); Specific Gravity, Urine >= 1.030 (1.005-1.030)
[2023-03-28 12:51] LABS: Basophils # 0.1 K/mm3 (0-0.2); Basophils % 1.1 % (0.1-2.0); Eosinophils # 0.4 K/mm3 (0.0-0.4); Hematocrit 46.7 % (37.0-47.0); Hemoglobin 16.2 g/dL (12.2-16.2); Lymphocytes # 3.1 K/mm3 (0.7-4.5); Mean Corpuscular HGB Conc 34.7 g/dL (31.8-35.4); Mean Corpuscular Hemoglobin 29.2 pg (27.0-31.2); Mean Corpuscular Volume 84.1 fl (81-99); Mean Platelet Volume 8.1 fl (7.4-10.4); Monocytes # 0.6 K/mm3 (0.1-1.0); Monocytes % 5.5 % (1.7-9.3); Neutrophils # 7.3 K/mm3 (1.8-7.8); Neutrophils % 63.4 % (37.0-80.0); Platelet Count 254 K/mm3 (142-424); Red Blood Count 5.55 M/mm3 (4.20-5.40); Red Cell Distribution Width 13.8 % (11.5-17.5); White Blood Count 11.6 K/mm3 (4.8-10.8)
[2023-03-28] MEDS: LABETALOL 20MG/4ML SYRINGE 10 MG IV ×2 (12:55→14:37)
[2023-03-28 12:57] LABS: Bacteria,Urine Trace /lpf; Squamous Epithelial Cell,Urine Occasional #/hpf (0-5); WBC,Urine Occasional #/hpf (0-3)
[2023-03-28 12:59] LABS: Alanine Aminotransferase 30 U/L (12-78); Albumin Level 4.4 g/dl (3.5-5.0); Albumin/Globulin Ratio 1.2 (1.1-1.8); Alkaline Phosphatase 68 U/L (38-126); Anion Gap 12.6 mEq/L (5-15); Aspartate Amino Transferase 31 U/L (14-36); Bilirubin,Total 0.7 mg/dl (0.2-1.3); Blood Urea Nitrogen 10 mg/dl (7-17); Carbon Dioxide 29 mmol/L (22.0-30.0); Chloride 100 mmol/L (98-107); Creatinine Clearance Estimated 100 mL/min (50-200); Estimated Glomerular Filt Rate 67 ml/min (>60); GFR (African American) 81 ML/MIN (>60); Globulin 3.6 g/dL (1.3-3.2); Glucose 132 mg/dl (74-100); Potassium 3.6 mmoL/L (3.5-5.1); Sodium 138 mmol/L (136-145)
[2023-03-28 13:03] LABS: Barbiturates Screen,Urine Negative ng/ml (<200)
[2023-03-28 13:04] LABS: Benzodiazepines Screen,Urine Negative ng/ml (<200)
[2023-03-28 13:05] LABS: Cannabinoid Screen,Urine Positive ng/ml (<50); Cocaine Screen,Urine Negative ng/ml (<300)
[2023-03-28 13:06] LABS: Methadone Screen,Urine Negative ng/ml (<300)
[2023-03-28 13:07] LABS: Opiate Screen,Urine Negative ng/ml (<300); Phencyclidine Screen,Urine Negative ng/ml (<25)
[2023-03-28 13:08] LABS: Acetaminophen < 10 ug/ml (10-30); Salicylate < 1.0 mg/dL (2.0-20.0)
--- NOTE | 2023-03-28 13:09 | ECG_ITS ---
APPROVED REPORT Exam: Resting ECG HR:112 bpm ECG Measurements Heart Rate 112 AXES [place] 130 P 67 QRSd 98 QRS 82 QT 359 T 65 QTc 425 Conclusion SINUS TACHYCARDIA ABNORMAL RHYTHM ECG UNCONFIRMED REPORT Electronically signed by : Archie Kruse MD 03/29/2023 13:40:08
--- NOTE | 2023-03-28 13:32 | PC.NURSE ---
Spoke to intake at [facility]. Will fax all information.
--- NOTE | 2023-03-28 14:14 | PC.NURSE ---
Spoke to Genia in LAB. She advised they have attempted to run the Ethanol on two different analyzers and it has failed so they would try again and let us know if anything changes.
[2023-03-28 14:25] LABS: Ethyl Alcohol < 10 mg/dl (0-10)
[2023-03-28] MEDS: hydrOXYzine pamoate 25MG CAPSULE 50 MG PO (14:38)
--- NOTE | 2023-03-28 14:47 | PC.NURSE ---
paperwork faxed to agnes
--- NOTE | 2023-03-28 15:26 | PC.NURSE ---
Patient talked to intake at [facility] denies all thoughts of self harm to intake states I just said that stuff I would never do that to my kids Patient states she was just having anxiety and wanted medication to help now. Patient states she does not want to go to a hospital and she would like to follow up out patient. Intake provided contact information for [facility].
--- NOTE | 2023-03-28 16:38 | PC.NURSE ---
Patient called and got appointment with Koha Nayakta for Friday.
[2023-03-31 17:27] LABS: Amphetamine Positive (.); Amphetamine (GC/MS) >3000 ng/mL (Cutoff=500); Amphetamines Positive (.); Methamphetamine Positive (.); Methamphetamine (GC/MS) >3000 ng/mL (Cutoff=500)
== END 2023-03-28 17:06 | disposition home or self-care (01) ==
PROVIDERS: Emergency Medicine; Emergency Provider Emergency Medicine
DX: R45.851 Suicidal ideations (principal); R00.0 Tachycardia, unspecified; F31.9 Bipolar disorder, unspecified; F41.9 Anxiety disorder, unspecified; I10 Essential (primary) hypertension; E78.5 Hyperlipidemia, unspecified; Z87.891 Personal history of nicotine dependence
CPT/HCPCS: 80053; 80307; 80324; 80329; 81001; 85025; 93005; 96374; 96376; 99285

== ENCOUNTER 2023-03-29 22:18 | Emergency (ER) | payer MEDICAID, SELFPAY ==
[2023-03-29 22:18] VITALS: BP 195/115; PULSE 88; RESP 16; TEMP 36.6; O2SAT 98; BMI 30.9
[2023-03-29 22:19] VITALS: BMI 37.9
--- NOTE | 2023-03-29 22:20 | CT_ITS ---
PROCEDURE INFORMATION: Exam: CTA Head With Contrast, Arteriography Exam date and time: 03/29/2023 10:26 PM Age: 47 years old Clinical indication: Syncope and collapse and other: HTN; Additional info: HTN; Syncopal episode, darron facial droop right side TECHNIQUE: Imaging protocol: Computed tomographic angiography of the head with contrast. Exam focused on the arteries. 3D rendering (Not supervised by radiologist): MIP and/or 3D reconstructed images were created by the technologist. Radiation optimization: All CT scans at this facility use at least one of these dose optimization techniques: automated exposure control; mA and/or kV adjustment per patient size (includes targeted exams where dose is matched to clinical indication); or iterative reconstruction. Contrast material: [id number]; Contrast volume: 100 ml; Contrast route: INTRAVENOUS (IV); COMPARISON: [facility] CT HEAD W/O CONTRAST 02/11/2017 9:45 AM FINDINGS: ANTERIOR CIRCULATION: Right internal carotid artery: Intracranial segment is patent with no significant stenosis. No aneurysm. Right middle cerebral artery: No occlusion or significant stenosis. No aneurysm. Right anterior cerebral artery: No occlusion or significant stenosis. No aneurysm. Left internal carotid artery: Intracranial segment is patent with no significant stenosis. No aneurysm. Left middle cerebral artery: No occlusion or significant stenosis. No aneurysm. Left anterior cerebral artery: No occlusion or significant stenosis. No aneurysm. POSTERIOR CIRCULATION: Right vertebral artery: No occlusion or significant stenosis. No aneurysm. Left vertebral artery: No occlusion or significant stenosis. No aneurysm. Basilar artery: No occlusion or significant stenosis. No aneurysm. Right posterior cerebral artery: No occlusion or significant stenosis. No aneurysm. Left posterior cerebral artery: No occlusion or significant stenosis. No aneurysm. Brain: Intracranial vascular calcifications. 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 Cerebral ventricles: No ventriculomegaly. Bones/joints: Unremarkable. No acute fracture. Soft tissues: Unremarkable. IMPRESSION: 1. No evidence for large vessel occlusion. 2. No evidence for stenosis, dissection, aneurysm or vascular malformation. 3. Intracranial vascular calcifications. 4. 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 This finding is new compared with 02/11/2017 CT head exam.
--- NOTE | 2023-03-29 22:21 | CT_ITS ---
PROCEDURE INFORMATION: Exam: CTA Neck With Contrast Exam date and time: 03/29/2023 10:26 PM Age: 47 years old Clinical indication: Stroke-like symptoms; Syncope/collapse and other: HTN TECHNIQUE: Imaging protocol: Computed tomographic angiography of the neck with contrast. Exam focused on the cervical segments of the vasculature. 3D rendering (Not supervised by radiologist): MIP and/or 3D reconstructed images were created by the technologist. Radiation optimization: All CT scans at this facility use at least one of these dose optimization techniques: automated exposure control; mA and/or kV adjustment per patient size (includes targeted exams where dose is matched to clinical indication); or iterative reconstruction. Contrast material: [id number]; Contrast volume: 100 ml; Contrast route: INTRAVENOUS (IV); COMPARISON: CT ANGIO HEAD WITH W/O 03/29/2023 10:26 PM FINDINGS: Right common carotid artery: No stenosis. No dissection or occlusion. Right internal carotid artery: No stenosis of the extracranial segment. No dissection or occlusion. Right external carotid artery: No occlusion or stenosis of the origin. Left common carotid artery: No stenosis. No dissection or occlusion. Left internal carotid artery: No stenosis of the extracranial segment. No dissection or occlusion. Left external carotid artery: No occlusion or stenosis of the origin. Right vertebral artery: No stenosis. No dissection or occlusion. Left vertebral artery: No stenosis. No dissection or occlusion. Soft tissues: Shotty subcentimeter internal jugular chain lymph nodes. Bones/joints: No acute fracture. IMPRESSION: No stenosis or occlusion. Shotty subcentimeter internal jugular chain lymph nodes. REFERENCES: NASCET CRITERIA. The degree of stenosis in the cervical segment of the internal carotid artery is based on NASCET criteria. Normal is no stenosis. Mild is less than 50% stenosis. Moderate is 50-69% stenosis. Severe is 70% to 99% stenosis. Total occlusion is no detectable patent lumen.
--- NOTE | 2023-03-29 22:22 | XR_ITS ---
PROCEDURE INFORMATION: Exam: XR Chest Exam date and time: 03/29/2023 11:00 PM Age: 47 years old Clinical indication: Other: Syncope; Additional info: Syncope, right facial droop TECHNIQUE: Imaging protocol: Radiologic exam of the chest. Views: 1 view. COMPARISON: CR XR CHEST PORTABLE 06/28/2021 8:20 PM FINDINGS: Lungs: Unremarkable. No consolidation. Pleural spaces: Unremarkable. No pleural effusion. No pneumothorax. Heart/Mediastinum: Unremarkable. No cardiomegaly. Bones/joints: Unremarkable. IMPRESSION: No acute findings.
--- NOTE | 2023-03-29 22:22 | ECG_ITS ---
APPROVED REPORT Exam: Resting ECG HR:86 bpm ECG Measurements Heart Rate 86 AXES DE 137 P 58 QRSd 97 QRS 56 QT 395 T 40 QTc 438 Conclusion SINUS RHYTHM NORMAL ECG UNCONFIRMED REPORT Electronically signed by : Archie Kruse MD 04/01/2023 16:47:51
--- NOTE | 2023-03-29 22:23 | PC.NURSE ---
Pt placed on backboard and placed on stretcher, moved to room to be evaluated. Pt remains unable to follow commands, right facial drooping noted, slurred speech, unable to follow commands, provider at bedside, Stroke alert started
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
[2023-03-29 22:34] LABS: Basophils # 0.1 K/mm3 (0-0.2); Basophils % 0.8 % (0.1-2.0); Eosinophils # 0.6 K/mm3 (0.0-0.4); Eosinophils % 4.6 % (0.1-12.0); Hematocrit 44.6 % (37.0-47.0); Hemoglobin 15.5 g/dL (12.2-16.2); Lymphocytes # 3.9 K/mm3 (0.7-4.5); Lymphocytes % 31.4 % (10-50); Mean Corpuscular HGB Conc 34.8 g/dL (31.8-35.4); Mean Corpuscular Hemoglobin 29.3 pg (27.0-31.2); Mean Corpuscular Volume 84.1 fl (81-99); Mean Platelet Volume 8.5 fl (7.4-10.4); Monocytes # 0.7 K/mm3 (0.1-1.0); Monocytes % 5.8 % (1.7-9.3); Neutrophils # 7.1 K/mm3 (1.8-7.8); Neutrophils % 57.4 % (37.0-80.0); Platelet Count 323 K/mm3 (142-424); Red Cell Distribution Width 13.9 % (11.5-17.5); White Blood Count 12.4 K/mm3 (4.8-10.8)
[2023-03-29] MEDS: LACTATED RINGERS 1000ML 1,000 ML 999 ML IV (22:34)
[2023-03-29 22:38] LABS: Chloride 103 mmol/L (98-107)
[2023-03-29 22:39] LABS: Potassium 3.7 mmoL/L (3.5-5.1); Sodium 138 mmol/L (136-145)
[2023-03-29 22:41] VITALS: BP 212/125; PULSE 99; O2SAT 99
[2023-03-29 22:41] LABS: Alanine Aminotransferase 27 U/L (12-78); Aspartate Amino Transferase 29 U/L (14-36); Blood Urea Nitrogen 13 mg/dl (7-17); Creatinine Clearance Estimated 130 mL/min (50-200); Estimated Glomerular Filt Rate 67 ml/min (>60); GFR (African American) 81 ML/MIN (>60)
[2023-03-29 22:42] LABS: Albumin Level 4.1 g/dl (3.5-5.0); Albumin/Globulin Ratio 1.1 (1.1-1.8); Alkaline Phosphatase 71 U/L (38-126); Anion Gap 11.7 mEq/L (5-15); Bilirubin,Total 0.7 mg/dl (0.2-1.3); Calcium 9.5 mg/dl (8.4-10.2); Carbon Dioxide 27 mmol/L (22.0-30.0); Globulin 3.6 g/dL (1.3-3.2); Glucose 117 mg/dl (74-100); Total Protein,Serum 7.7 g/dl (6.3-8.2)
[2023-03-29] MEDS: 0.9 % SODIUM CHLORIDE 50 ML VIAL IV (22:43)
[2023-03-29] MEDS: IOPAMIDOL-370 (76%);100ML BOTTLE 100 ML IV (22:43)
[2023-03-29] MEDS: SODIUM CHLORIDE 0.9% 10ML SYR (RAD ONLY) 10 ML IV (22:43)
[2023-03-29 22:49] LABS: Activated Partial Thrombo Time 26.5 seconds (22.8-30.6); INR 0.98 (0.9-1.1); Prothrombin Time 10.6 seconds (10.1-12.5)
[2023-03-29 22:54] LABS: Troponin I 0.02 ng/ml (0.00-0.034)
--- NOTE | 2023-03-29 22:55 | PC.NURSE ---
Pt back from CT, can now answer all questions and follow commands appropriately, moving all extremities equally, pt states she don't recall what happened, states she know she just felt weird and than she woke up in CT. aware
[2023-03-29 23:00] VITALS: BP 205/112; PULSE 72; RESP 16; O2SAT 98
[2023-03-29 23:30] VITALS: BP 190/116; PULSE 72; RESP 9; O2SAT 99
--- NOTE | 2023-03-29 23:35 | PC.NURSE ---
Per Provider to cancel UA
--- NOTE | 2023-03-30 00:02 | PC.NURSE ---
Patient's son notified the nurses station that the patient has passed out again. Upon arriving to patient bedside patient had eyes closed and was non-responsive. Vitals had just taken at 100/59, heart rate 47, RR 16, 100% on room air. Patient was notably diaphoretic at this time. Placed patient immediately in trendelenburg position.
--- NOTE | 2023-03-30 00:05 | PC.NURSE ---
Patient it awake at this time, but not speaking intelligibly, notified primary nurse, provider has been at bedside to assess patient. Current BP 161/106, hr 79, RR14, 97% on RA.
--- NOTE | 2023-03-30 00:07 | ECG_ITS ---
APPROVED REPORT Exam: Resting ECG HR:65 bpm ECG Measurements Heart Rate 65 AXES MD 125 P 42 QRSd 96 QRS 60 QT 457 T 62 QTc 469 Conclusion SINUS RHYTHM NONSPECIFIC T-WAVE ABNORMALITY BORDERLINE ECG UNCONFIRMED REPORT Electronically signed by : Archie Kruse MD 04/01/2023 16:47:36
--- NOTE | 2023-03-30 00:25 | PC.NURSE ---
Sons remain at bedside, pt still has mumbling of words, moves all extremities, pupils 2mm PERRLA. MD aware
--- NOTE | 2023-03-30 00:40 | PC.NURSE ---
Pt s speech now clear. NADN. SWIFT aware
--- NOTE | 2023-03-30 01:15 | PC.NURSE ---
Pt informed of being admitted, agreeable
--- NOTE | 2023-03-30 02:11 | PC.NURSE ---
HOSPITALIST AT BEDSIDE
--- NOTE | 2023-03-30 02:20 | PC.NURSE ---
Hospitalist in room discussing admission with pt
--- NOTE | 2023-03-30 02:35 | PC.NURSE ---
pt refusing o be admitted reports would rather be at home, risks and benefits explained, MD aware
[2023-03-30 02:45] LABS: Troponin I 0.02 ng/ml (0.00-0.034)
--- NOTE | 2023-03-30 02:48 | PC.NURSE ---
Dr Calevrt in speaking with pt about AMA again explained, pt and son verbalized understanding and continues to want to leave AMA
[2023-03-30 02:49] VITALS: BP 188/112; PULSE 76; RESP 16; TEMP 36.8; O2SAT 98
== END 2023-03-30 02:50 | disposition left against medical advice (07) ==
LOC: ER 22:43 → 2ND 03-30 02:14
PROVIDERS: Emergency Provider Student in an Organized Health Care Education/Training Program
DX: R55 Syncope and collapse (principal); R53.1 Weakness; R53.83 Other fatigue; R00.1 Bradycardia, unspecified; E11.9 Type 2 diabetes mellitus without complications; I10 Essential (primary) hypertension; E78.5 Hyperlipidemia, unspecified
CPT/HCPCS: 70496; 70498; 71045; 80053; 84484; 85025; 85610; 85730; 93005; 96360; 99291; Q9967

== ENCOUNTER 2023-05-26 19:12 | Emergency (ER) | payer MEDICAID, SELFPAY ==
[2023-05-26] VITALS (49 sets, daily range): BP systolic 102–244; BP diastolic 58–144; PULSE 68–106; RESP 13–31; TEMP 36.7; O2SAT 95–100; BMI 31.6
--- NOTE | 2023-05-26 19:10 | ECG_ITS ---
APPROVED REPORT Exam: Resting ECG HR:100 bpm ECG Measurements Heart Rate 100 AXES AL 140 P 65 QRSd 95 QRS 62 QT 356 T 72 QTc 413 Conclusion SINUS TACHYCARDIA ABNORMAL RHYTHM ECG Electronically signed by : SANDER HICKEY, 05/27/2023 00:50:15
--- NOTE | 2023-05-26 19:14 | PC.NURSE ---
FSBG 68
--- NOTE | 2023-05-26 19:15 | PC.NURSE ---
Stroke alert called @ 1914.
--- NOTE | 2023-05-26 19:16 | PC.NURSE ---
Patient to CT with RN.
--- NOTE | 2023-05-26 19:19 | CT_ITS ---
PROCEDURE INFORMATION: Exam: CTA Neck With Contrast Exam date and time: 05/26/2023 7:23 PM Age: 48 years old Clinical indication: Stroke-like symptoms; Right facial droop; Additional info: R facial droop TECHNIQUE: Imaging protocol: Computed tomographic angiography of the neck with contrast. Exam focused on the cervical segments of the vasculature. 3D rendering (Not supervised by radiologist): MIP and/or 3D reconstructed images were created by the technologist. Radiation optimization: All CT scans at this facility use at least one of these dose optimization techniques: automated exposure control; mA and/or kV adjustment per patient size (includes targeted exams where dose is matched to clinical indication); or iterative reconstruction. Contrast material: ISOVUE; Contrast volume: 100 ml; Contrast route: INTRAVENOUS (IV); COMPARISON: CT ANGIO NECK 03/29/2023 10:26 PM FINDINGS: Right common carotid artery: No stenosis. No dissection or occlusion. Right internal carotid artery: No stenosis of the extracranial segment. No dissection or occlusion. Right external carotid artery: No occlusion or stenosis of the origin. Left common carotid artery: No stenosis. No dissection or occlusion. Left internal carotid artery: No stenosis of the extracranial segment. No dissection or occlusion. Left external carotid artery: No occlusion or stenosis of the origin. Right vertebral artery: No stenosis. No dissection or occlusion. Left vertebral artery: No stenosis. No dissection or occlusion. Soft tissues: Normal. No significant soft tissue swelling. Bones/joints: No acute fracture. IMPRESSION: No stenosis or occlusion. REFERENCES: NASCET CRITERIA. The degree of stenosis in the cervical segment of the internal carotid artery is based on NASCET criteria. Normal is no stenosis. Mild is less than 50% stenosis. Moderate is 50-69% stenosis. Severe is 70% to 99% stenosis. Total occlusion is no detectable patent lumen.
--- NOTE | 2023-05-26 19:19 | CT_ITS ---
PROCEDURE INFORMATION: Exam: CT Head Without Contrast Exam date and time: 05/26/2023 7:21 PM Age: 48 years old Clinical indication: Stroke-like symptoms; Right facial droop; Additional info: R facial droop TECHNIQUE: Imaging protocol: Computed tomography of the head without contrast. Radiation optimization: All CT scans at this facility use at least one of these dose optimization techniques: automated exposure control; mA and/or kV adjustment per patient size (includes targeted exams where dose is matched to clinical indication); or iterative reconstruction. Other technique: STROKE PROTOCOL was implemented. COMPARISON: CT ANGIO HEAD WITH W/O 03/29/2023 10:26 PM FINDINGS: Brain: Chronic appearing lacunar infarcts noted right basal ganglia, left thalamus and left frontal amaya radiata. No intracranial mass, hemorrhage or evidence of acute ischemia Cerebral ventricles: No ventriculomegaly. Paranasal sinuses: Visualized sinuses are unremarkable. No fluid levels. Mastoid air cells: Visualized mastoid air cells are well aerated. Bones/joints: Unremarkable. No acute fracture. Soft tissues: Unremarkable. IMPRESSION: No acute intracranial abnormality. Chronic appearing findings as noted. ASSESSMENT: ASPECTS ([place] Stroke Program Early CT Score) is 10.
--- NOTE | 2023-05-26 19:19 | CT_ITS ---
PROCEDURE INFORMATION: Exam: CTA Head With Contrast, Arteriography Exam date and time: 05/26/2023 7:23 PM Age: 48 years old Clinical indication: Stroke-like symptoms; Right facial droop; Additional info: R facial droop TECHNIQUE: Imaging protocol: Computed tomographic angiography of the head with contrast. Exam focused on the arteries. 3D rendering (Not supervised by radiologist): MIP and/or 3D reconstructed images were created by the technologist. Radiation optimization: All CT scans at this facility use at least one of these dose optimization techniques: automated exposure control; mA and/or kV adjustment per patient size (includes targeted exams where dose is matched to clinical indication); or iterative reconstruction. Contrast material: ISOVUE; Contrast volume: 100 ml; Contrast route: INTRAVENOUS (IV); COMPARISON: CT ANGIO HEAD WITH W/O 03/29/2023 10:26 PM FINDINGS: ANTERIOR CIRCULATION: Right internal carotid artery: Intracranial segment is patent with no significant stenosis. No aneurysm. Right middle cerebral artery: No occlusion or significant stenosis. No aneurysm. Right anterior cerebral artery: No occlusion or significant stenosis. No aneurysm. Left internal carotid artery: Intracranial segment is patent with no significant stenosis. No aneurysm. Left middle cerebral artery: No occlusion or significant stenosis. No aneurysm. Left anterior cerebral artery: No occlusion or significant stenosis. No aneurysm. POSTERIOR CIRCULATION: Right vertebral artery: No occlusion or significant stenosis. No aneurysm. Left vertebral artery: No occlusion or significant stenosis. No aneurysm. Basilar artery: No occlusion or significant stenosis. No aneurysm. Right posterior cerebral artery: No occlusion or significant stenosis. No aneurysm. Left posterior cerebral artery: No occlusion or significant stenosis. No aneurysm. Brain: No definite mass, mass effect, or midline shift. Cerebral ventricles: No ventriculomegaly. Bones/joints: Unremarkable. No acute fracture. Soft tissues: Unremarkable. IMPRESSION: No large vessel stenosis or occlusion.
--- NOTE | 2023-05-26 19:20 | XR_ITS ---
PROCEDURE INFORMATION: Exam: XR Chest Exam date and time: 05/26/2023 7:43 PM Age: 48 years old Clinical indication: Other: CVA TECHNIQUE: Imaging protocol: Radiologic exam of the chest. Views: 1 view. COMPARISON: CR XR CHEST PORTABLE 03/29/2023 11:00 PM FINDINGS: Lungs: Unremarkable. No consolidation. Pleural spaces: Unremarkable. No pleural effusion. No pneumothorax. Heart/Mediastinum: Unremarkable. No cardiomegaly. Bones/joints: Unremarkable. IMPRESSION: No acute findings.
--- NOTE | 2023-05-26 19:22 | HMH.EDGENADL ---
Discharge Plan Disposition Patient Disposition: Home, Self-Care Chief Complaint: Neuro Symptoms/Deficit Prescriptions Prescriptions: No Action lisinopril 20 mg tablet 20 mg PO DAILY Qty: 30 0RF valsartan 80 mg tablet 80 mg PO DAILY Qty: 30 2RF carvedilol [Coreg] 25 mg tablet 25 mg PO BID Qty: 60 1RF Rx Instructions: must administer with a meal/food Referrals Follow up/Referrals: Provider,Referral, MD [Primary Care Provider] - See instructions Clinical Impressions Clinical Impression: Acute CVA (cerebrovascular accident) Stand Alone Forms Stand Alone Forms: Transfer Record - ED Discharge ED Provider: Parminder Quezada General Adult HPI General Chief complaint: Neuro Symptoms/Deficit Stated complaint: Stroke symptoms Time Seen by Provider: 05/26/23 19:14 History of Present Illness HPI narrative: Patient is a 48-year-old female with past medical history of hypertension, hyperlipidemia anxiety, depression who presents emergency department for evaluation of strokelike symptoms. Onset was acute, 30 minutes prior to arrival, patient had acute onset right facial droop, no weakness, she did have slurring of her speech causing her to become concerned and present here for continued evaluation. No trauma. Related Data Previous Rx's Medication Instructions Recorded lisinopril 20 mg tablet 20 mg PO DAILY #30 tabs 07/19/21 carvedilol 25 mg tablet (Coreg) 25 mg PO BID #60 tabs 03/28/23 valsartan 80 mg tablet 80 mg PO DAILY #30 tabs 03/28/23 Allergies Allergy/AdvReac Type Severity Reaction Status Date / Time No Known Allergies Allergy Verified 07/07/18 10:48 [facility] Disclaimer: The information contained in this section may have been updated after the patient was seen, as this information can be updated by other users. Medical History (Updated 05/26/23 @ 22:08 by Parminder Quezada MD) Hypertension Hyperlipidemia Anxiety Social History Smoking Status: Never smoker second hand exposure: Yes alcohol intake: never substance use type: denies use current occupational status: unemployed Travel in the last 8 weeks: None household members: spouse housing: house current occupational exposures/hazards: No caffeine: No ROS Obtained: Yes Systems reviewed as appropriate & no additional complaints except as documented Physical Exam General General appearance: alert and in no apparent distress Head Head exam: atraumatic and normocephalic Eye Eye exam: Present PERRL and EOMI ENT ENT exam: Present mucous membranes moist Neck Neck exam: Present normal inspection Chest Chest inspection: Present normal inspection and symmetric chest wall rise Respiratory Respiratory exam: Present normal lung sounds bilaterally; Absent respiratory distress Cardiovascular Cardiovascular exam: Present regular rate and normal rhythm Abdominal Exam Abdominal exam: Present soft; Absent tenderness Extremities Exam Extremities exam: Present normal inspection Neurological Exam Neurological exam: Present alert, oriented X3 and other (NIH 4, right-sided facial droop, dysarthria, mild sensory loss right upper extremity.); Absent CN II-XII intact Psychiatric Psychiatric exam: Present normal affect Skin Skin exam: Present warm and dry Medical Decision Making [place] Inquiry Pt receiving controlled substance: No Vital Signs: 05/26/23 19:13 05/26/23 19:29 05/26/23 19:31 Temperature 98.0 F Temperature Source Oral Pulse Rate 103 H 100 H Pulse Rate [Left Radial] 98 H Respiratory Rate 18 14 18 Blood Pressure 227/133 H 223/130 H Blood Pressure [Right Arm] 232/137 H Blood Pressure Mean 164 161 Blood Pressure Mean [Right Arm] 168 Blood Pressure Source [Right Arm] Automatic Cuff Blood Pressure Position [Right Arm] Sitting 02 Sat by Pulse Oximetry 99 97 98 Oxygen Delivery Method Room Air Room Air 05/26/23 19:59 05/26/23 20:05 05/26/23 20:07 Temperature Temperature Source Pulse Rate 90 92 H 94 H Pulse Rate [Left Radial] Respiratory Rate 21 22 22 Blood Pressure 244/143 H 238/144 H 224/136 H Blood Pressure [Right Arm] Blood Pressure Mean 163 161 165 Blood Pressure Mean [Right Arm] Blood Pressure Source [Right Arm] Blood Pressure Position [Right Arm] 02 Sat by Pulse Oximetry 100 99 97 Oxygen Delivery Method 05/26/23 20:10 05/26/23 20:15 Temperature Temperature Source Pulse Rate 102 H 102 H Pulse Rate [Left Radial] Respiratory Rate 16 13 Blood Pressure 217/133 H 208/119 H Blood Pressure [Right Arm] Blood Pressure Mean 166 148 Blood Pressure Mean [Right Arm] Blood Pressure Source [Right Arm] Blood Pressure Position [Right Arm] 02 Sat by Pulse Oximetry 98 96 Oxygen Delivery Method Lab Data Lab Results 05/26/23 19:20: WBC 9.3, RBC 4.88, Hgb 16.3 H, Hct 42.7, MCV 87.5, MCH 33.4 H, MCHC 38.2 H, RDW 14.1, Plt Count 203, MPV 9.2, Neut % (Auto) 55.6, Lymph % (Auto) 32.3, Hudspeth % (Auto) 6.3, Eos % (Auto) 4.2, Baso % (Auto) 1.7, Neut # (Auto) 5.2, Lymph # (Auto) 3.0, [place]ud[place]eth # (Auto) 0.6, Eos # (Auto) 0.4, Baso # (Auto) 0.2, Sodium 140, Potassium 3.7, Chloride 105, Carbon Dioxide 30, Anion Gap 8.7, BUN 10, Creatinine 0.90, Estimated GFR 67, Est GFR ( Amer) 81, Glucose 97, Calcium 10.0, Magnesium 2.0, Total Bilirubin 0.7, AST 31, ALT 23, Alkaline Phosphatase 87, Total Protein 8.7 H, Albumin 4.7, Globulin 4.0 H, Albumin/Globulin Ratio 1.2, Serum HCG, Qual Negative 05/26/23 20:17: PT 10.7, INR 0.99 05/26/23 20:26: Urine Color Yellow, Urine Appearance Clear, Urine pH 7.0, Ur Specific [place] 1.010, Urine Protein Trace, Urine Glucose (UA) Negative, Urine Ketones Negative, Urine Blood Negative, Urine Nitrate Positive, Urine Bilirubin Negative, Urine Urobilinogen 0.2, Ur Leukocyte Esterase Negative, Urine RBC None, Urine WBC 3-5, Ur Squamous Epith Cells Occasional, Urine Bacteria 1+ 05/26/23 19:20 05/26/23 19:20 Orders (Tests/Meds): ED MEDICATIONS Generic Name Dose Route Start Last Admin Trade Name Freq PRN Reason Stop Dose Admin Nicardipine HCl 25 mg/ Sodium 250 mls @ 50 mls/hr 05/26/23 20:00 05/26/23 21:13 Chloride IV 06/25/23 19:59 0 mls/hr .Q5H KEI Infusion Protocol Sodium Chloride 10 ml 05/26/23 19:27 05/26/23 19:29 Sodium Chloride 0.9% 10ml Syr (Rad Only) IV 06/25/23 19:26 10 ml NEEDED PRN Administration Maintain IV Site Discontinued Medications Generic Name Dose Route Start Last Admin Trade Name Freq PRN Reason Stop Dose Admin Alteplase, Recombinant 78 mg 05/26/23 21:45 05/26/23 21:48 Alteplase Recombinant 100mg Vial IV 05/26/23 21:46 78 mg ONCE ONE Administration Iopamidol 100 ml 05/26/23 19:27 05/26/23 19:28 Iopamidol-370 (76%);100ml Bottle IV 05/26/23 19:28 100 ml ONCE ONE Administration Sodium Chloride 50 ml 05/26/23 19:27 05/26/23 19:28 0.9 % Sodium Chloride 50 Ml Vial IV 05/26/23 19:28 50 ml ONCE ONE Administration ORDERS Category Date Time Status CT angio head Stat Cat Scan 05/26/23 19:[address] angio neck Stat Cat Scan 05/26/23 19:[address] head/brain wo con Stat Cat Scan 05/26/23 19:19 Completed CXR --portable [XR chest portable] Stat Exams 05/26/23 19:20 Completed CBC w/Auto Diff [Complete Blood Count Auto Diff] Stat Lab 05/26/23 19:20 Completed CMP [Comprehensive Metabolic Panel] Stat Lab 05/26/23 19:20 Completed HCG Qualitative, Serum Stat Lab 05/26/23 19:20 Completed MG [Magnesium] Stat Lab 05/26/23 19:20 Completed PT INR [Prothrombin Time INR] Stat Lab 05/26/23 20:17 Completed UA [Urinalysis and Microscopic] Stat Lab 05/26/23 20:26 Completed ECG Data Tracing #1: Independently interpreted by me, rate is 96, rhythm is regular, axis is normal, no ST elevation in anatomical contiguous leads, QTc 445. Medical Decision Narrative: In summary patient is a 48-year-old female with past medical history described above who presents emergency department for evaluation of strokelike symptoms. Patient is hypertensive upon arrival, systolic 230. My concern for CVA is high. Patient will undergo rapid stroke protocol. Fingerstick blood glucose is acceptable. Permissive hypertension will be conducted repeat blood pressure systolic 223. Initial workup reviewed by me, hematologic labs are nonactionable, hCG negative. Noncontrasted CT scan of the head shows no acute intracranial abnormality. CTA head and neck pending. Viz. AI back to stroke will be activated. I was spoken to by [facility] radiology, no acute intracranial abnormality, normal CTA head and neck.the case was discussed with [facility] stroke navigator, should patient not meet any exclusion criteria for tPA tPA will be offered to the patient. Shared decision-making was had at bedside, patient wishes to proceed with tPA. Given elevated systolic blood pressure Cardene drip was initiated to get within acceptable administration systolic below 180. Patient does have a questionable TIA from just under 3 months ago which she signed out AGAINST MEDICAL ADVICE. No definitive ischemic stroke within the last 3 months, the case was again discussed with [facility] navigator, this is not a contraindication. Upon repeat evaluation patient had robust response to Cardene with systolic in the 150s, worsening stroke symptoms, Cardene discontinued. tPA was administered. Cardene was then restarted as blood pressure was uptrending to maintain systolic below 180. Upon blood pressure elevating back towards 180 patient had lessening of stroke symptoms. Patient was accepted by Dr. Bailey at [facility] and was transported in stable condition. Critical Care Critical Care Time Critical Care Time: Yes Attestation: On 05/26/23, the high probability of a clinically significant, sudden or life threatening deterioration of the following system(s) required my full and direct attention, intervention and personal management. The time I documented below is in addition to time spent performing reported procedures but includes the following listed in this critical care notation. Total Time Total Critical Care Time: 45
[2023-05-26] MEDS: 0.9 % SODIUM CHLORIDE 50 ML VIAL IV (19:28)
[2023-05-26] MEDS: IOPAMIDOL-370 (76%);100ML BOTTLE 100 ML IV (19:28)
[2023-05-26] MEDS: SODIUM CHLORIDE 0.9% 10ML SYR (RAD ONLY) 10 ML IV (19:29)
[2023-05-26 19:33] LABS: Basophils # 0.2 K/mm3 (0-0.2); Basophils % 1.7 % (0.1-2.0); Chloride 105 mmol/L (98-107); Eosinophils # 0.4 K/mm3 (0.0-0.4); Eosinophils % 4.2 % (0.1-12.0); Hematocrit 42.7 % (37.0-47.0); Hemoglobin 16.3 g/dL (12.2-16.2); Lymphocytes % 32.3 % (10-50); Mean Corpuscular HGB Conc 38.2 g/dL (31.8-35.4); Mean Corpuscular Hemoglobin 33.4 pg (27.0-31.2); Mean Corpuscular Volume 87.5 fl (81-99); Mean Platelet Volume 9.2 fl (7.4-10.4); Monocytes # 0.6 K/mm3 (0.1-1.0); Monocytes % 6.3 % (1.7-9.3); Neutrophils # 5.2 K/mm3 (1.8-7.8); Neutrophils % 55.6 % (37.0-80.0); Platelet Count 203 K/mm3 (142-424); Potassium 3.7 mmoL/L (3.5-5.1); Red Blood Count 4.88 M/mm3 (4.20-5.40); Red Cell Distribution Width 14.1 % (11.5-17.5); Sodium 140 mmol/L (136-145); White Blood Count 9.3 K/mm3 (4.8-10.8)
[2023-05-26 19:35] LABS: HCG Qualitative, Serum Negative (Negative)
[2023-05-26 19:36] LABS: Alanine Aminotransferase 23 U/L (12-78); Albumin Level 4.7 g/dl (3.5-5.0); Albumin/Globulin Ratio 1.2 (1.1-1.8); Alkaline Phosphatase 87 U/L (38-126); Anion Gap 8.7 mEq/L (5-15); Aspartate Amino Transferase 31 U/L (14-36); Bilirubin,Total 0.7 mg/dl (0.2-1.3); Blood Urea Nitrogen 10 mg/dl (7-17); Carbon Dioxide 30 mmol/L (22.0-30.0); Estimated Glomerular Filt Rate 67 ml/min (>60); GFR (African American) 81 ML/MIN (>60); Glucose 97 mg/dl (74-100); Total Protein,Serum 8.7 g/dl (6.3-8.2)
--- NOTE | 2023-05-26 19:46 | PC.NURSE ---
received call back from stroke navigator @ [facility] [place]
--- NOTE | 2023-05-26 19:47 | PC.NURSE ---
spoke with [id number] states blue top is hemolyzed. will be coming to collect.
--- NOTE | 2023-05-26 19:49 | PC.NURSE ---
[facility] they will only accept intervention intended patients at this time due to census. md at bedside speaking with patient re: tpa
--- NOTE | 2023-05-26 19:52 | PC.NURSE ---
Decision to tPa made with family, patient, and Dr. Quezada pending blood pressure stabilization.
[2023-05-26] MEDS: NICARDIPINE HCL 25 MG in 0.9 % SODIUM CHLORIDE 240 ML 50 MG IV (20:04)
[2023-05-26 20:31] LABS: Microscopic, Urine URINE MICROSCOPIC (MICROSCOPIC)
[2023-05-26 20:36] LABS: INR 0.99 (0.9-1.1); Prothrombin Time 10.7 seconds (10.1-12.5)
[2023-05-26 20:44] LABS: Appearance,Urine CLEAR (Clear); Bilirubin,Urine Negative (Negative); Blood, Urine Negative (Negative); Color,Urine YELLOW (Yellow); Glucose,Urine (UA) Negative (Negative); Ketones,Urine Negative (Negative); Leukocyte Esterase,Urine Negative (Negative); Nitrate,Urine POSITIVE (Negative); Protein,Urine TRACE (Negative); Urobilinogen,Urine 0.2 EU/dl (0.2)
--- NOTE | 2023-05-26 21:13 | PC.NURSE ---
Blood pressure trending down suddenly. Stopped cardene and notified Dr. Quezada. Patient currently NIHSS 1, patient spoke with Dr. Quezada and states that she feels back to baseline. Dr. Quezada to speak with [employer] about tPa, hold for now.
--- NOTE | 2023-05-26 21:16 | PC.NURSE ---
Patient reports feeling dizzy at this time blood pressure continues to drop lower after stopping cardene at this time.
[2023-05-26 21:20] LABS: Bacteria,Urine 1+ /lpf; Squamous Epithelial Cell,Urine Occasional #/hpf (0-5)
--- NOTE | 2023-05-26 21:20 | PC.NURSE ---
Requested 2nd nurse preschool teacher's assistant, patient appears to be syncopal at this time. Placed patient in trendelenburg. Requested provider at bedside.
--- NOTE | 2023-05-26 21:23 | PC.NURSE ---
Patient completely unresponsive at this time even to painful stimulus. Bag mask valve readied and blow by oxygen provided. Provider to bedside. Blood sugar 98 at this time. Patient diaphoretic.
--- NOTE | 2023-05-26 21:26 | ECG_ITS ---
APPROVED REPORT Exam: Resting ECG HR:96 bpm ECG Measurements Heart Rate [address] 142 P 78 QRSd 101 QRS 75 QT 392 T 80 QTc 445 Conclusion SINUS RHYTHM POSSIBLE LEFT ATRIAL ENLARGEMENT [-0.1mV P-WAVE IN V1/V2] BORDERLINE ECG Electronically signed by : SANDER HICKEY, 05/27/2023 00:48:47
--- NOTE | 2023-05-26 21:27 | PC.NURSE ---
Patient opening eyes at this time, tachypneic, able to answer name and birthday, confused on month. NIHSS score of [address] Quezada requests tPa again at this time, to maintain acceptable blood pressures closely. [facility]
--- NOTE | 2023-05-26 21:34 | PC.NURSE ---
Contacted pharmacy to confirm and enter tPa dosing for patient. Confirmed bed scale weight.
[2023-05-26] MEDS: ALTEPLASE RECOMBINANT 100MG VIAL 78 MG IV (21:48)
--- NOTE | 2023-05-26 21:52 | PC.NURSE ---
Nurse to nurse report given to Kita MAJANO at [facility]. Patient to bed [address] [facility].
== END 2023-05-26 22:22 | disposition home or self-care (01) ==
PROVIDERS: Emergency Provider Emergency Medicine
DX: I63.9 Cerebral infarction, unspecified (principal); R00.0 Tachycardia, unspecified; I10 Essential (primary) hypertension; E78.5 Hyperlipidemia, unspecified
CPT/HCPCS: 70450; 70496; 70498; 71045; 80053; 81001; 83735; 84703; 85025; 85610; 93005; 96365; 96366; 96375; 99285; J2997; Q9967

== ENCOUNTER 2023-08-03 12:18 | Observation (INO) | payer MEDICAID, SELFPAY ==
[2023-08-03] VITALS (17 sets, daily range): BP systolic 140–270; BP diastolic 84–143; PULSE 68–100; RESP 16–24; TEMP 36.5–36.7; O2SAT 98; BMI 29.9
--- NOTE | 2023-08-03 12:15 | ECG_ITS ---
APPROVED REPORT Exam: Resting ECG HR:68 bpm ECG Measurements Heart Rate 68 AXES VT 125 P 38 QRSd 99 QRS 61 QT 413 T 83 QTc 429 Conclusion SINUS RHYTHM NORMAL ECG UNCONFIRMED REPORT Electronically signed by : Cristobal Nayak, 08/03/2023 14:33:21
--- NOTE | 2023-08-03 12:45 | XR_ITS ---
PROCEDURE INFORMATION: Exam: XR Chest Exam date and time: 08/03/2023 1:31 PM Age: 48 years old Clinical indication: Dyspnea TECHNIQUE: Imaging protocol: Radiologic exam of the chest. Views: 1 view. COMPARISON: CR XR CHEST PORTABLE 26/05/2023 19:43 FINDINGS: Lungs: Unremarkable. No consolidation. Pleural spaces: Unremarkable. No pleural effusion. No pneumothorax. Heart/Mediastinum: Unremarkable. No cardiomegaly. Bones/joints: Unremarkable. IMPRESSION: No acute findings.
--- NOTE | 2023-08-03 12:45 | CT_ITS ---
PROCEDURE INFORMATION: Exam: CT Head Without Contrast Exam date and time: 08/03/2023 1:53 PM Age: 48 years old Clinical indication: Altered mental status/memory loss; Confusion or disorientation; Additional info: HTN, confusion TECHNIQUE: Imaging protocol: Computed tomography of the head without contrast. Radiation optimization: All CT scans at this facility use at least one of these dose optimization techniques: automated exposure control; mA and/or kV adjustment per patient size (includes targeted exams where dose is matched to clinical indication); or iterative reconstruction. COMPARISON: CT ANGIO HEAD 26/05/2023 19:23 FINDINGS: Brain: Stable old bilateral basal ganglia lacunar infarcts as well as an infarct in the left centrum semiovale. No CT evidence of acute brain injury. White matter microangiopathic chronic ischemia in both hemispheres, advanced for age. Cerebral ventricles: No ventriculomegaly. Paranasal sinuses: Mild chronic right maxillary sinusitis Mastoid air cells: Visualized mastoid air cells are well aerated. Bones: Unremarkable. No acute fracture. Soft tissues: Unremarkable. IMPRESSION: 1. No CT evidence of acute brain injury 2. Stable old bilateral basal ganglia lacunar infarcts and infarct in the left centrum semiovale 3. White matter microangiopathic chronic ischemia in both hemispheres, advanced for age
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
--- NOTE | 2023-08-03 12:47 | PC.NURSE ---
SPOKE WITH PT (ADRIA) HE STATES PT HAS HX OF BIPOLAR AND HAS BEEN UNMEDICATED FOR APPROX ONE YEAR , HE SATES PT IS VERY MEAN VERBALLY ABUSIVE TO HIM AND THEIR SON , BREAKS THINGS IN THE HOUSE AND SAYS SHE IS GONNA KILL HERSELF . THEY HAVE BEEN FOR 27 YEARS AND HE HAS NEVER SEEN HER THIS BAD . CONTACT NUMBER FOR [phone]
[2023-08-03 12:51] LABS: Basophils # 0.1 K/mm3 (0-0.2); Basophils % 1.6 % (0.1-2.0); Eosinophils # 0.4 K/mm3 (0.0-0.4); Eosinophils % 4.3 % (0.1-12.0); Hemoglobin 14.8 g/dL (12.2-16.2); Lymphocytes # 2.9 K/mm3 (0.7-4.5); Lymphocytes % 33.8 % (10-50); Mean Corpuscular HGB Conc 33.7 g/dL (31.8-35.4); Mean Corpuscular Hemoglobin 29.1 pg (27.0-31.2); Mean Corpuscular Volume 86.3 fl (81-99); Monocytes # 0.6 K/mm3 (0.1-1.0); Monocytes % 6.4 % (1.7-9.3); Neutrophils # 4.6 K/mm3 (1.8-7.8); Neutrophils % 53.8 % (37.0-80.0); Platelet Count 286 K/mm3 (142-424); Red Cell Distribution Width 14.8 % (11.5-17.5); White Blood Count 8.5 K/mm3 (4.8-10.8)
[2023-08-03 12:53] LABS: Chloride 103 mmol/L (98-107); Sodium 140 mmol/L (136-145)
[2023-08-03 12:55] LABS: Blood Urea Nitrogen 12 mg/dl (7-17); Creatinine Clearance Estimated 127 mL/min (50-200); Estimated Glomerular Filt Rate 89 ml/min (>60); GFR (African American) 108 ML/MIN (>60)
[2023-08-03 12:56] LABS: Alanine Aminotransferase 24 U/L (12-78); Albumin Level 4.5 g/dl (3.5-5.0); Albumin/Globulin Ratio 1.2 (1.1-1.8); Alkaline Phosphatase 65 U/L (38-126); Aspartate Amino Transferase 28 U/L (14-36); Bilirubin,Total 0.5 mg/dl (0.2-1.3); Carbon Dioxide 29 mmol/L (22.0-30.0); Globulin 3.7 g/dL (1.3-3.2); Total Protein,Serum 8.2 g/dl (6.3-8.2)
[2023-08-03 12:57] LABS: Calcium 9.7 mg/dl (8.4-10.2); Glucose 103 mg/dl (74-100)
--- NOTE | 2023-08-03 13:00 | PC.NURSE ---
VERBAL ORDER FROM DR MONTEJO TO HAVE BP 25% DECREASE. ROUGHLY LESS THAN 190
[2023-08-03 13:05] LABS: NT Pro Brain Natriuretic Pep. 95.7 pg/mL (0-125)
[2023-08-03] MEDS: NICARDIPINE HCL 25 MG in 0.9 % SODIUM CHLORIDE 240 ML 50 MG IV ×2 (13:05→14:52)
[2023-08-03 13:08] LABS: Ethyl Alcohol < 10 mg/dl (0-10); Troponin I < 0.01 ng/ml (0.00-0.034)
--- NOTE | 2023-08-03 13:57 | PC.NURSE ---
DR MONTEJO SPEAKING WITH DR PROCTOR FOR ADMISSION
--- NOTE | 2023-08-03 14:00 | PC.NURSE ---
DATA MODELER NOTIFIED OF ADMISSION
--- NOTE | 2023-08-03 14:01 | PC.NURSE ---
MULTIPLE ATT TO CALL BACK WITH UPDATES
--- NOTE | 2023-08-03 14:31 | PC.NURSE ---
arrived to floor by stretcher from ED
[2023-08-03] MEDS: HEPARIN SODIUM 5,000 UNIT/ML VIAL 5000 UNIT SQ (14:52)
--- NOTE | 2023-08-03 14:53 | HMH.PHAINT1 ---
Pharmacy Intervention Comments: MEDICATION RECONCILIATION COMPLETE USING EXTERNAL PHARMACY FILL HISTORY. PATIENT STATES SHE NO LONGER TAKES CARVEDILOL OR ATORVASTATIN.
--- NOTE | 2023-08-03 15:49 | EXP.HP ---
History of Present Illness *Admission Date: 08/03/23 *Reason for visit:: Uncontrolled hypertension *History of present illness: Patient is a 48-year-old female with past medical history of CVA without residual deficits, bipolar disorder, anxiety, uncontrolled hypertension who presents to the hospital due to confusion. According to patient she had an argument with her and she left home and was found at friends home who brought her to the hospital. Patient mentions her blood pressure was very high, she stopped taking her depression medicine. Patient denied chest pain shortness of breath nausea vomiting diarrhea constipation dysuria fevers or chills. [facility] Disclaimer: The information contained in this section may have been updated after the patient was seen, as this information can be updated by other users. Medical History (Updated 08/03/23 @ 15:50 by Jorge Duncan MD) Bipolar 1 disorder Hypertension Hyperlipidemia Anxiety Social History (Updated 08/03/23 @ 15:48 by Clementine Montez RN) Smoking Status: Former smoker tobacco type: cigarettes packs per day: 0 second hand exposure: Yes alcohol intake: never substance use type: denies use current occupational status: unemployed Travel in the last 8 weeks: None household members: spouse housing: house current occupational exposures/hazards: No caffeine: No Review of Systems Review of Systems Review of systems:: pertinent systems reviewed and negative unless documented below Meds Home Medications and Allergies Home Medications Medication Instructions Recorded Confirmed Type valsartan 80 mg tablet 80 mg PO DAILY #30 tabs 03/28/23 08/03/23 Rx aspirin 81 mg tablet,delayed 81 mg PO DAILY 08/03/23 08/03/23 History release New Prescriptions to Start Prescriptions: Allergies Allergy/AdvReac Type Severity Reaction Status Date / Time No Known Allergies Allergy Verified 07/07/18 10:48 Exam Data for Last 24 hours Vital signs and Labs for Last 24 Hours: Temp Pulse Resp BP Pulse Ox O2 Del Method 98.0 F 100 H 24 180/99 H 98 Room Air 08/03/23 14:26 08/03/23 14:39 08/03/23 14:26 08/03/23 14:26 08/03/23 13:31 08/03/23 14:26 Laboratory Results - last 24 hr 08/03/23 12:20: WBC 8.5, RBC 5.10, Hgb 14.8, Hct 44.0, MCV 86.3, MCH 29.1, MCHC 33.7, RDW 14.8, Plt Count 286, MPV 9.0, Neut % (Auto) 53.8, Lymph % (Auto) 33.8, [place] % (Auto) 6.4, Eos % (Auto) 4.3, Baso % (Auto) 1.6, Neut # (Auto) 4.6, Lymph # (Auto) 2.9, [place] # (Auto) 0.6, Eos # (Auto) 0.4, Baso # (Auto) 0.1, Sodium 140, Potassium 4.0, Chloride 103, Carbon Dioxide 29, Anion Gap 12.0, BUN 12, Creatinine 0.70, Estimated Creat Clear 127, Estimated GFR 89, Est GFR ( Amer) 108, Glucose 103 H, Calcium 9.7, Total Bilirubin 0.5, AST 28, ALT 24, Alkaline Phosphatase 65, Troponin I < 0.01, NT-Pro-B Natriuret Pep 95.7, Total Protein 8.2, Albumin 4.5, Globulin 3.7 H, Albumin/Globulin Ratio 1.2, Plasma/Serum Alcohol < 10 I & O for Last 24 hours: Intake & Output 07/31/23 08/01/23 08/02/23 08/03/23 23:59 23:59 23:59 23:59 Weight 81.647 kg Constitutional Constitutional: no acute distress *Routine HEENT Exam Head: Present normocephalic Eye: Present EOMI and PERRL ENT: Present mucous membranes moist *Routine Neck Exam Neck: Present supple; Absent lymphadenopathy *Routine Respiratory Exam Respiratory: Present CTA bilaterally *Routine Cardiovascular Exam Cardiovascular: Present RRR *Routine Abdominal Exam Abdominal: Present soft and normoactive bowel sounds; Absent tenderness *Routine Rectal Exam Rectal:: deferred *Routine Genitalia Exam Genitalia:: deferred *Routine Extremities Exam Extremities: Absent cyanosis, clubbing or edema *Routine Skin Exam Skin: Present warm; Absent rash *Routine Neurological Exam Neurological: Present alert and oriented X3 Assessment and Plan *Assessment and plan (1) Encephalopathy, hypertensive: Status: Acute Category: Medical Code(s): I67.4 - Hypertensive encephalopathy (2) Depression: Status: Acute Category: Medical Code(s): F32.A - Depression, unspecified (3) Hypertension: Status: Chronic Category: Medical Code(s): I10 - Essential (primary) hypertension (4) Hyperlipidemia: Status: Chronic Category: Medical Code(s): E78.5 - Hyperlipidemia, unspecified (5) Bipolar 1 disorder: Status: Acute Category: Medical Code(s): F31.9 - Bipolar disorder, unspecified Plan Patient is a 48-year-old female with past medical history of CVA without residual deficits, bipolar disorder, anxiety, uncontrolled hypertension who presents to the hospital due to confusion. According to patient she had an argument with her and she left home and was found at friends home who brought her to the hospital. Patient mentions her blood pressure was very high, she stopped taking her depression medicine. Patient denied chest pain shortness of breath nausea vomiting diarrhea constipation dysuria fevers or chills. Assessment and plan Altered mental status confusion likely secondary to uncontrolled hypertension Hypertensive urgency Started on Cardene drip, closely monitor blood pressure Restart home aspirin, valsartan, Coreg 25 twice daily History of CVA Restart home aspirin, will add atorvastatin Bipolar disorder Updated patient's medication list, patient is not interested in taking any antidepressant medication except her regular antidepressant medication Consult psychiatry while patient inpatient DVT prophylaxis-heparin
[2023-08-03] MEDS: IRBESARTAN 75MG TABLET 75 MG PO (16:02)
--- NOTE | 2023-08-03 16:40 | PC.NURSE ---
Patient stated she had to go, that she felt trapped and couldn't stay. Educated patient about risks of stroke and other hypertensive emergencies. Patient alert and oriented times 4 and insisted she was ok, she would go home and lay down with her dogs and not talk to her . Patient stated she was fine and had to leave. Dr. Duncan called and notified and came to the room to speak with patient. Patient stated she still wanted to leave. Patient's son Mike contacted and agreed to pick patient up. Patient given name and office number to psych naveen Guevara and educated about making a follow up as well as a follow up with her pcp about blood pressure control.
[2023-08-03 16:42] LABS: Troponin I < 0.01 ng/ml (0.00-0.034)
--- NOTE | 2023-08-03 16:58 | EXP.EVENT.NO ---
I was called by RN that patient wants to leave AMA, on my arrival patient is alert and oriented x 4, patient is sitting on the side of the bed. Patient denies auditory or visual hallucinations suicidal or homicidal ideation. Patient mentions she wants to go home because she needs her dog, I informed the patient that her blood pressure is too high she needs to blood pressure medications, patient mentioned she understands that but she does not want to stay, she verbalized understanding of the risk of due to high blood pressure, patient verbalized understanding, patient left AMA. Patient was advised to follow-up with PCP for blood pressure management
--- NOTE | 2023-08-03 16:59 | EXP.DC.SUM ---
General Admission date:: 08/03/23 Discharge date: 08/03/23 HPI HPI HPI: Patient is a 48-year-old female with past medical history of CVA without residual deficits, bipolar disorder, anxiety, uncontrolled hypertension who presents to the hospital due to confusion. According to patient she had an argument with her and she left home and was found at friends home who brought her to the hospital. Patient mentions her blood pressure was very high, she stopped taking her depression medicine. Patient denied chest pain shortness of breath nausea vomiting diarrhea constipation dysuria fevers or chills. Hospital Course Hospital Course Hospital Course: see same date H&P Exam Data for Last 24 hours Vital signs and Labs for Last 24 Hours: Temp Pulse Resp BP Pulse Ox O2 Del Method 97.7 F 95 H 20 163/112 H 98 Room Air 08/03/23 16:00 08/03/23 16:30 08/03/23 15:15 08/03/23 16:30 08/03/23 15:15 08/03/23 15:15 Laboratory Results - last 24 hr 08/03/23 12:20: WBC 8.5, RBC 5.10, Hgb 14.8, Hct 44.0, MCV 86.3, MCH 29.1, MCHC 33.7, RDW 14.8, Plt Count 286, MPV 9.0, Neut % (Auto) 53.8, Lymph % (Auto) 33.8, [place] % (Auto) 6.4, Eos % (Auto) 4.3, Baso % (Auto) 1.6, Neut # (Auto) 4.6, Lymph # (Auto) 2.9, [place] # (Auto) 0.6, Eos # (Auto) 0.4, Baso # (Auto) 0.1, Sodium 140, Potassium 4.0, Chloride 103, Carbon Dioxide 29, Anion Gap 12.0, BUN 12, Creatinine 0.70, Estimated Creat Clear 127, Estimated GFR 89, Est GFR ( Amer) 108, Glucose 103 H, Calcium 9.7, Total Bilirubin 0.5, AST 28, ALT 24, Alkaline Phosphatase 65, Troponin I < 0.01, NT-Pro-B Natriuret Pep 95.7, Total Protein 8.2, Albumin 4.5, Globulin 3.7 H, Albumin/Globulin Ratio 1.2, Plasma/Serum Alcohol < 10 08/03/23 16:00: Troponin I < 0.01 I & O for Last 24 hours: Intake & Output 07/31/23 08/01/23 08/02/23 08/03/23 23:59 23:59 23:59 23:59 Intake Total 45.417 / 45.417 Balance 45.417 / 45.417 Weight 81.647 kg Results Data Completed and Pending Labs on day of discharge: Labs from last 24 hours 08/03/23 08/03/23 16:00 12:20 WBC 8.5 RBC 5.10 Hgb 14.8 Hct 44.0 MCV 86.3 MCH 29.1 MCHC 33.7 RDW 14.8 Plt Count 286 MPV 9.0 Neut % (Auto) 53.8 Lymph % (Auto) 33.8 [place] % (Auto) 6.4 Eos % (Auto) 4.3 Baso % (Auto) 1.6 Neut # (Auto) 4.6 Lymph # (Auto) 2.9 [place] # (Auto) 0.6 Eos # (Auto) 0.4 Baso # (Auto) 0.1 Sodium 140 Potassium 4.0 Chloride 103 Carbon Dioxide 29 Anion Gap 12.0 BUN 12 Creatinine 0.70 Estimated Creat Clear 127 Estimated GFR 89 Est GFR ( Amer) 108 Glucose 103 H Calcium 9.7 Total Bilirubin 0.5 AST 28 ALT 24 Alkaline Phosphatase 65 Troponin I < 0.01 < 0.01 NT-Pro-B Natriuret Pep 95.7 Total Protein 8.2 Albumin 4.5 Globulin 3.7 H Albumin/Globulin Ratio 1.2 Plasma/Serum Alcohol < 10 DS: Diagnosis Discharge Diagnosis (1) Encephalopathy, hypertensive: Status: Acute Code(s): I67.4 - Hypertensive encephalopathy (2) Depression: Status: Acute Code(s): F32.A - Depression, unspecified (3) Hypertension: Status: Chronic Code(s): I10 - Essential (primary) hypertension (4) Hyperlipidemia: Status: Chronic Code(s): E78.5 - Hyperlipidemia, unspecified (5) Bipolar 1 disorder: Status: Acute Code(s): F31.9 - Bipolar disorder, unspecified Meds Home Medications and Allergies Home Medications Medication Instructions Recorded Confirmed Type valsartan 80 mg tablet 80 mg PO DAILY #30 tabs 03/28/23 08/03/23 Rx aspirin 81 mg tablet,delayed 81 mg PO DAILY 08/03/23 08/03/23 History release New Prescriptions to Start Prescriptions: Allergies Allergy/AdvReac Type Severity Reaction Status Date / Time No Known Allergies Allergy Verified 07/07/18 10:48 Discharge Plan Disposition Patient Disposition: Left Against Medical Advice Providers Admit Provider: Jorge Duncan Attending Provider: Jorge Duncan
== END 2023-08-03 16:42 | disposition left against medical advice (07) ==
LOC: ER 14:00 → 2ND 14:33
PROVIDERS: Admitting Provider Internal Medicine; Emergency Provider Student in an Organized Health Care Education/Training Program; Visit Provider Internal Medicine
DX: I67.4 Hypertensive encephalopathy (principal); I10 Essential (primary) hypertension; E78.5 Hyperlipidemia, unspecified; Z87.891 Personal history of nicotine dependence; F31.89 Other bipolar disorder; Z86.73 Personal history of transient ischemic attack (TIA), and cerebral infarction without residual deficits; T43.206A Underdosing of unspecified antidepressants, initial encounter; T46.5X6A Underdosing of other antihypertensive drugs, initial encounter; Z91.128 Patient's intentional underdosing of medication regimen for other reason
CPT/HCPCS: 36415; 70450; 71045; 80053; 80320; 83880; 84484; 85025; 93005; 99291; G0378

== ENCOUNTER 2023-09-14 20:14 | Observation (INO) | payer MEDICAID, SELFPAY ==
[2023-09-14 20:15] VITALS: BP 221/152; PULSE 100; RESP 20; TEMP 36.7; O2SAT 96; BMI 30.9
--- NOTE | 2023-09-14 20:30 | HMH.EDGENADL ---
Discharge Plan Disposition Patient Disposition: Admitted Condition: Critical Prescriptions Prescriptions: No Action valsartan 80 mg tablet 80 mg PO DAILY Qty: 30 2RF aspirin 81 mg tablet,delayed release (DR/EC) 81 mg PO DAILY Referrals Follow up/Referrals: Provider,Referral, [Primary Care Provider] - See instructions Clinical Impressions Clinical Impression: Malignant hypertension Discharge ED Provider: Parminder Quezada General Adult HPI <YANELI Campbell - Last Filed: 09/14/23 21:09> General Chief complaint: Recheck/Abnormal Lab/Rx Stated complaint: H/P Time Seen by Provider: 09/14/23 20:23 Mode of Arrival: Ambulatory Source of Information: Patient Limitations: No Limitations Description of Symptoms (Recalled from ER Triage Doc. by RN): pt has been without meds for one week and began feeling weird this week checked bp at home and it was high History of Present Illness HPI narrative: Patient presents for evaluation of elevated blood pressure. Patient states that she has been out of her blood pressure medication for approximately 1 week as she has no transportation and has not been unable to come get it. Patient has a past medical history most recently of stroke 2 to 3 months ago and likely an interval 1 approximately a month ago in which she presented to the emergency department for however she left AGAINST MEDICAL ADVICE before evaluation. Patient states she presented today because she can tell that her blood pressure was up even though she does not have home monitoring device because her head felt swimmy . Patient denies any focal neurologic deficits any vision changes headache nausea vomiting or diarrhea. Related Data Home Medications Medication Instructions Recorded Confirmed aspirin 81 mg tablet,delayed 81 mg PO DAILY 08/03/23 08/03/23 release Previous Rx's Medication Instructions Recorded valsartan 80 mg tablet 80 mg PO DAILY #30 tabs 03/28/23 Allergies Allergy/AdvReac Type Severity Reaction Status Date / Time No Known Allergies Allergy Verified 07/07/18 10:48 PFSH <YANELI Campbell - Last Filed: 09/14/23 21:09> [facility] Disclaimer: The information contained in this section may have been updated after the patient was seen, as this information can be updated by other users. Medical History (Updated 09/14/23 @ 21:00 by YANELI Campbell) Bipolar 1 disorder Hypertension Hyperlipidemia Anxiety Social History (Updated 08/03/23 @ 15:48 by Clementine Montez RN) Smoking Status: Never smoker second hand exposure: Yes alcohol intake: never substance use type: denies use current occupational status: unemployed Travel in the last 8 weeks: None household members: spouse housing: house current occupational exposures/hazards: No caffeine: No <YANELI Campbell - Last Filed: 09/14/23 21:09> ROS Obtained: Yes Systems reviewed as appropriate & no additional complaints except as documented Physical Exam <YANELI Campbell - Last Filed: 09/14/23 21:09> General General appearance: alert and in no apparent distress Head Head exam: atraumatic and normal inspection Eye Eye exam: Present normal appearance, PERRL and EOMI ENT ENT exam: Present normal exam, normal oropharynx and mucous membranes moist Neck Neck exam: Present normal inspection, full ROM and trachea midline Chest Chest inspection: Present normal inspection and symmetric chest wall rise Respiratory Respiratory exam: Present normal lung sounds bilaterally Cardiovascular Cardiovascular exam: Present regular rate, normal rhythm, normal heart sounds, +S1 and +S2 Neurological Exam Neurological exam: Present alert, oriented X3 and CN II-XII intact Medical Decision Making <YANELI Campbell - Last Filed: 09/14/23 21:09> Medical Records Medical records reviewed: Yes I reviewed the patient's medical records. [place] Inquiry Pt receiving controlled substance: No Vital Signs: 09/14/23 20:15 09/14/23 20:44 Temperature 98.1 F Temperature Source Oral Pulse Rate 96 H Pulse Rate [Right Radial] 100 H Respiratory Rate 20 22 Blood Pressure 204/117 H Blood Pressure [Right Arm] 221/152 H Blood Pressure Mean [Right Arm] 175 Blood Pressure Source Automatic Cuff Blood Pressure Position Supine 02 Sat by Pulse Oximetry 96 96 Oxygen Delivery Method Room Air Room Air Lab Data Lab results reviewed: Yes I reviewed the patient's lab results. Lab Results 09/14/23 20:34: WBC 11.2 H, RBC 5.15, Hgb 15.2, Hct 44.9, MCV 87.1, MCH 29.5, MCHC 33.9, RDW 14.6, Plt Count 280, MPV 8.3, Neut % (Auto) 66.4, Lymph % (Auto) 24.2, [place] % (Auto) 5.3, Eos % (Auto) 2.8, Baso % (Auto) 1.2, Neut # (Auto) 7.4, Lymph # (Auto) 2.7, [place] # (Auto) 0.6, Eos # (Auto) 0.3, Baso # (Auto) 0.1, PT 10.2, INR 0.90, Sodium 142, Potassium 4.0, Chloride 109 H, Carbon Dioxide 25, Anion Gap 12.0, BUN 9, Creatinine 0.90, Estimated Creat Clear 99, Estimated GFR 67, Est GFR ( Amer) 81, Glucose 107 H, Calcium 10.2, Magnesium 1.9, Total Bilirubin 0.7, AST 33, ALT 32, Alkaline Phosphatase 84, Troponin I 0.02, Total Protein 8.7 H, Albumin 4.7, Globulin 4.0 H, Albumin/Globulin Ratio 1.2, Free T4 Index 2.5 L, Thyroxine (T4) 6.0, T3 Uptake 42 H 09/14/23 20:34 09/14/23 20:34 Orders (Tests/Meds): ED MEDICATIONS Generic Name Dose Route Start Last Admin Trade Name Freq PRN Reason Stop Dose Admin Acetaminophen 650 mg 09/14/23 20:59 Acetaminophen 325mg Tab PO 10/14/23 20:58 Q4HP PRN Fever or Mild Pain (1-3) Nicardipine HCl 25 mg/ Sodium 250 mls @ 50 mls/hr 09/14/23 20:30 09/14/23 20:50 Chloride IV 10/14/23 20:29 25 mls/hr .Q5H KEI Infusion Protocol Morphine Sulfate 2 mg 09/14/23 20:59 Morphine 2mg/Ml Syringe IV 10/14/23 20:58 Q2HP PRN Severe Pain (7-10) Nicotine 21 mg 09/14/23 20:59 Nicotine 21mg/24hr Patch TD 10/14/23 20:58 DAILYP PRN Nicotine Cravings Nitroglycerin 0.4 mg 09/14/23 20:59 Nitroglycerin 0.4mg Sl Tablet SL 10/14/23 20:58 Q5MINP PRN Chest Pain Ondansetron HCl 4 mg 09/14/23 20:59 Ondansetron 4mg/2ml Vial IV 10/14/23 20:58 Q8HP PRN Nausea Pantoprazole Sodium 40 mg 09/15/23 09:00 Pantoprazole 40mg Tablet PO 10/15/23 08:59 DAILY KEI Discontinued Medications Generic Name Dose Route Start Last Admin Trade Name Miroslava GAN Reason Stop Dose Admin Acetaminophen 1,000 mg 09/14/23 20:31 09/14/23 20:58 Acetaminophen 1,000mg/100ml Vial IV 09/14/23 20:32 1,000 mg ONCE ONE Administration Ondansetron HCl 4 mg 09/14/23 20:31 09/14/23 20:57 Ondansetron 4mg/2ml Vial IV 09/14/23 20:32 4 mg ONCE ONE Administration ORDERS Category Date Time Status Cardiology Consult [Consult to Cardiology] [CONS] Cons 09/14/23 20:59 Active Routine CBC w/Auto Diff [Complete Blood Count Auto Diff] Stat Lab 09/14/23 20:34 Completed CMP [Comprehensive Metabolic Panel] Stat Lab 09/14/23 20:34 Completed Complete Blood Count Auto Diff AMLAB Lab 09/15/23 06:00 Ordered Comprehensive Metabolic Panel AMLAB Lab 09/15/23 06:00 Ordered INR [Prothrombin Time INR] Stat Lab 09/14/23 20:34 Completed Magnesium Stat Lab 09/14/23 20:34 Completed Thyroid Panel Stat Lab 09/14/23 20:34 Results Trop I [Troponin I] Stat Lab 09/14/23 20:34 Completed Troponin I Q3H Lab 09/14/23 23:45 Ordered Troponin I Q3H Lab 09/15/23 02:45 Ordered UA [Urinalysis and Microscopic] Stat Lab 09/14/23 20:31 Ordered Medical Decision Narrative: In summary patient is a already 8-year-old female who presents to the emergency department for evaluation of elevated blood pressure. Patient is malignantly hypertensive with a blood pressure of 232 and 151 at the time of my exam but otherwise with stable vital signs including O2 sat of 96 respiratory rate of 20 pulse of 90 upon arrival, and afebrile. Physical exam is unremarkable and nonfocal including a GCS of 15 no focal neurologic signs extraocular movements are intact patient has no nausea vomiting she has no cervical tenderness she has no gait or station abnormalities. She has no chest pain fever chills shortness of breath dependent edema. Differential diagnosis includes hypertensive emergency versus possible renal stenosis versus ACS etc. Initial workup will be conducted with hematologic labs twelve-lead EKG. Initial interventions include Cardene drip with a goal of lowering her blood pressure lower than 175 systolic Tylenol Zofran. Initial workup reviewed by me shows that her hematologic labs are nonactionable. Upon repeat evaluation I had interactive discussion about admission and she is agreeable reluctantly currently.. Given this I had interactive discussion with hospital medicine who is agreed to admit patient for further evaluation and care. <Parminder Quezada MD - Last Filed: 09/14/23 21:23> Vital Signs: 09/14/23 20:15 09/14/23 20:44 Temperature 98.1 F Temperature Source Oral Pulse Rate 96 H Pulse Rate [Right Radial] 100 H Respiratory Rate 20 22 Blood Pressure 204/117 H Blood Pressure [Right Arm] 221/152 H Blood Pressure Mean [Right Arm] 175 Blood Pressure Source Automatic Cuff Blood Pressure Position Supine 02 Sat by Pulse Oximetry 96 96 Oxygen Delivery Method Room Air Room Air Lab Data Lab Results 09/14/23 20:34: WBC 11.2 H, RBC 5.15, Hgb 15.2, Hct 44.9, MCV 87.1, MCH 29.5, MCHC 33.9, RDW 14.6, Plt Count 280, MPV 8.3, Neut % (Auto) 66.4, Lymph % (Auto) 24.2, [place] % (Auto) 5.3, Eos % (Auto) 2.8, Baso % (Auto) 1.2, Neut # (Auto) 7.4, Lymph # (Auto) 2.7, [place] # (Auto) 0.6, Eos # (Auto) 0.3, Baso # (Auto) 0.1, PT 10.2, INR 0.90, Sodium 142, Potassium 4.0, Chloride 109 H, Carbon Dioxide 25, Anion Gap 12.0, BUN 9, Creatinine 0.90, Estimated Creat Clear 99, Estimated GFR 67, Est GFR ( Amer) 81, Glucose 107 H, Calcium 10.2, Magnesium 1.9, Total Bilirubin 0.7, AST 33, ALT 32, Alkaline Phosphatase 84, Troponin I 0.02, Total Protein 8.7 H, Albumin 4.7, Globulin 4.0 H, Albumin/Globulin Ratio 1.2, Free T4 Index 2.5 L, Thyroxine (T4) 6.0, T3 Uptake 42 H Orders (Tests/Meds): ED MEDICATIONS Generic Name Dose Route Start Last Admin Trade Name Miroslava PRN Reason Stop Dose Admin Acetaminophen 650 mg 09/14/23 20:59 Acetaminophen 325mg Tab PO 10/14/23 20:58 Q4HP PRN Fever or Mild Pain (1-3) Nicardipine HCl 25 mg/ Sodium 250 mls @ 50 mls/hr 09/14/23 20:30 09/14/23 20:50 Chloride IV 10/14/23 20:29 25 mls/hr .Q5H KEI Infusion Protocol Morphine Sulfate 2 mg 09/14/23 20:59 Morphine 2mg/Ml Syringe IV 10/14/23 20:58 Q2HP PRN Severe Pain (7-10) Nicotine 21 mg 09/14/23 20:59 Nicotine 21mg/24hr Patch TD 10/14/23 20:58 DAILYP PRN Nicotine Cravings Nitroglycerin 0.4 mg 09/14/23 20:59 Nitroglycerin 0.4mg Sl Tablet SL 10/14/23 20:58 Q5MINP PRN Chest Pain Ondansetron HCl 4 mg 09/14/23 20:59 Ondansetron 4mg/2ml Vial IV 10/14/23 20:58 Q8HP PRN Nausea Pantoprazole Sodium 40 mg 09/15/23 09:00 Pantoprazole 40mg Tablet PO 10/15/23 08:59 DAILY KEI Discontinued Medications Generic Name Dose Route Start Last Admin Trade Name Miroslava PRN Reason Stop Dose Admin Acetaminophen 1,000 mg 09/14/23 20:31 09/14/23 20:58 Acetaminophen 1,000mg/100ml Vial IV 09/14/23 20:32 1,000 mg ONCE ONE Administration Ondansetron HCl 4 mg 09/14/23 20:31 09/14/23 20:57 Ondansetron 4mg/2ml Vial IV 09/14/23 20:32 4 mg ONCE ONE Administration ORDERS Category Date Time Status Cardiology Consult [Consult to Cardiology] [CONS] Cons 09/14/23 20:59 Active Routine CBC w/Auto Diff [Complete Blood Count Auto Diff] Stat Lab 09/14/23 20:34 Completed CMP [Comprehensive Metabolic Panel] Stat Lab 09/14/23 20:34 Completed Complete Blood Count Auto Diff AMLAB Lab 09/15/23 06:00 Ordered Comprehensive Metabolic Panel AMLAB Lab 09/15/23 06:00 Ordered INR [Prothrombin Time INR] Stat Lab 09/14/23 20:34 Completed Magnesium Stat Lab 09/14/23 20:34 Completed Thyroid Panel Stat Lab 09/14/23 20:34 Results Trop I [Troponin I] Stat Lab 09/14/23 20:34 Completed Troponin I Q3H Lab 09/14/23 23:45 Ordered Troponin I Q3H Lab 09/15/23 02:45 Ordered UA [Urinalysis and Microscopic] Stat Lab 09/14/23 20:31 Ordered ECG Data Tracing #1: Independently interpreted by me rate is 94, rhythm is regular, axis is normal, no ST elevation in anatomical contiguous leads. QTc 420. Medical Decision Narrative: In summary patient is a already 8-year-old female who presents to the emergency department for evaluation of elevated blood pressure. Patient is malignantly hypertensive with a blood pressure of 232 and 151 at the time of my exam but otherwise with stable vital signs including O2 sat of 96 respiratory rate of 20 pulse of 90 upon arrival, and afebrile. Physical exam is unremarkable and nonfocal including a GCS of 15 no focal neurologic signs extraocular movements are intact patient has no nausea vomiting she has no cervical tenderness she has no gait or station abnormalities. She has no chest pain fever chills shortness of breath dependent edema. Differential diagnosis includes hypertensive emergency versus possible renal stenosis versus ACS etc. Initial workup will be conducted with hematologic labs twelve-lead EKG. Initial interventions include Cardene drip with a goal of lowering her blood pressure lower than 175 systolic Tylenol Zofran. Initial workup reviewed by me shows that her hematologic labs are nonactionable. Upon repeat evaluation I had interactive discussion about admission and she is agreeable reluctantly currently.. Given this I had interactive discussion with hospital medicine who is agreed to admit patient for further evaluation and care. I was consulted by the MARILYN, and we discussed the complexity of the problems being addressed. I approved the treatment and management plan for this patient's care in the emergency department, thus performing a substantive portion of the medical decision making. I had extensive discussion with patient at bedside as to her comorbidities and her uncontrolled hypertension requiring emergent intervention. Previously she has signed out AGAINST MEDICAL ADVICE however currently she is amenable to admission and hypertensive management which is certainly in her best interest. Parminder Quezada MD Critical Care <YANELI Campbell - Last Filed: 09/14/23 21:09> Critical Care Time Critical Care Time: Yes Attestation: On 09/14/23, the high probability of a clinically significant, sudden or life threatening deterioration of the following systems cardiovascular, neurologic required my full and direct attention, intervention and personal management. The time I documented below is in addition to time spent performing reported procedures but includes the following listed in this critical care notation. Total Time Total Critical Care Time: 30
--- NOTE | 2023-09-14 20:31 | ECG_ITS ---
APPROVED REPORT Exam: Resting ECG HR:94 bpm ECG Measurements Heart Rate 94 AXES AL 137 P 43 QRSd 97 QRS -17 QT 368 T 63 QTc 420 Conclusion SINUS RHYTHM NORMAL ECG Electronically signed by : SANDER HICKEY, 09/14/2023 23:06:51
[2023-09-14 20:44] VITALS: BP 204/117; PULSE 96; RESP 22; O2SAT 96
[2023-09-14] MEDS: NICARDIPINE HCL 25 MG in 0.9 % SODIUM CHLORIDE 240 ML 50 MG IV (20:46)
[2023-09-14 20:50] LABS: Basophils # 0.1 K/mm3 (0-0.2); Basophils % 1.2 % (0.1-2.0); Eosinophils # 0.3 K/mm3 (0.0-0.4); Eosinophils % 2.8 % (0.1-12.0); Hematocrit 44.9 % (37.0-47.0); Hemoglobin 15.2 g/dL (12.2-16.2); Lymphocytes # 2.7 K/mm3 (0.7-4.5); Lymphocytes % 24.2 % (10-50); Mean Corpuscular HGB Conc 33.9 g/dL (31.8-35.4); Mean Corpuscular Hemoglobin 29.5 pg (27.0-31.2); Mean Corpuscular Volume 87.1 fl (81-99); Mean Platelet Volume 8.3 fl (7.4-10.4); Monocytes # 0.6 K/mm3 (0.1-1.0); Monocytes % 5.3 % (1.7-9.3); Neutrophils # 7.4 K/mm3 (1.8-7.8); Neutrophils % 66.4 % (37.0-80.0); Platelet Count 280 K/mm3 (142-424); Red Blood Count 5.15 M/mm3 (4.20-5.40); Red Cell Distribution Width 14.6 % (11.5-17.5); White Blood Count 11.2 K/mm3 (4.8-10.8)
[2023-09-14 20:52] LABS: Chloride 109 mmol/L (98-107); Sodium 142 mmol/L (136-145)
[2023-09-14 20:54] LABS: Blood Urea Nitrogen 9 mg/dl (7-17); Creatinine Clearance Estimated 99 mL/min (50-200); Estimated Glomerular Filt Rate 67 ml/min (>60); GFR (African American) 81 ML/MIN (>60)
[2023-09-14 20:55] LABS: Alanine Aminotransferase 32 U/L (12-78); Albumin Level 4.7 g/dl (3.5-5.0); Albumin/Globulin Ratio 1.2 (1.1-1.8); Alkaline Phosphatase 84 U/L (38-126); Aspartate Amino Transferase 33 U/L (14-36); Bilirubin,Total 0.7 mg/dl (0.2-1.3); Calcium 10.2 mg/dl (8.4-10.2); Carbon Dioxide 25 mmol/L (22.0-30.0); Glucose 107 mg/dl (74-100); Magnesium 1.9 mg/dl (1.6-2.3); Total Protein,Serum 8.7 g/dl (6.3-8.2)
[2023-09-14] MEDS: ONDANSETRON 4MG/2ML VIAL 4 MG IV (20:57)
[2023-09-14] MEDS: ACETAMINOPHEN 1,000MG/100ML VIAL 1000 MG IV (20:58)
--- NOTE | 2023-09-14 21:02 | EXP.HP ---
History of Present Illness *Admission Date: 09/14/23 *Reason for visit:: hypertension *History of present illness: Patient is a 48-year-old female with past medical history of CVA with some dysarthria, bipolar disorder, anxiety, uncontrolled hypertension, non medically complaint who presented to the hospital because her head felt swimmy . Patient states that she has been out of her blood pressure medication for approximately 1 week as she has no transportation and has not been unable to come get it. patient last admission she left AGAINST MEDICAL ADVICE before evaluation. apparently was prescribed valsartan by her PCP. Patient states she presented today because she can tell that her blood pressure was up even though she does not have home monitoring device. Patient denies any focal neurologic deficits any vision changes headache nausea vomiting or diarrhea. Admitted for further monitoring and treatment [facility] Disclaimer: The information contained in this section may have been updated after the patient was seen, as this information can be updated by other users. Medical History (Updated 09/15/23 @ 05:48 by Tab Johns APRN) CVA (cerebral vascular accident) Bipolar 1 disorder Hypertension Hyperlipidemia Anxiety Social History (Updated 08/03/23 @ 15:48 by Clementine Montez RN) Smoking Status: Never smoker second hand exposure: Yes alcohol intake: never substance use type: denies use current occupational status: unemployed Travel in the last 8 weeks: None household members: spouse housing: house current occupational exposures/hazards: No caffeine: No Review of Systems Review of Systems Review of systems:: pertinent systems reviewed and negative unless documented below Meds Home Medications and Allergies Home Medications Medication Instructions Recorded Confirmed Type valsartan 80 mg tablet 80 mg PO DAILY #30 tabs 03/28/23 09/14/23 Rx aspirin 81 mg tablet,delayed 81 mg PO DAILY 08/03/23 09/14/23 History release New Prescriptions to Start Prescriptions: Allergies Allergy/AdvReac Type Severity Reaction Status Date / Time No Known Allergies Allergy Verified 07/07/18 10:48 Exam Data for Last 24 hours Vital signs and Labs for Last 24 Hours: Temp Pulse Resp BP Pulse Ox O2 Del Method 98.1 F 96 H 22 204/117 H 96 Room Air 09/14/23 20:15 09/14/23 20:44 09/14/23 20:44 09/14/23 20:44 09/14/23 20:44 09/14/23 20:44 Laboratory Results - last 24 hr 09/14/23 20:34: WBC 11.2 H, RBC 5.15, Hgb 15.2, Hct 44.9, MCV 87.1, MCH 29.5, MCHC 33.9, RDW 14.6, Plt Count 280, MPV 8.3, Neut % (Auto) 66.4, Lymph % (Auto) 24.2, [place] % (Auto) 5.3, Eos % (Auto) 2.8, Baso % (Auto) 1.2, Neut # (Auto) 7.4, Lymph # (Auto) 2.7, [place] # (Auto) 0.6, Eos # (Auto) 0.3, Baso # (Auto) 0.1, Sodium 142, Potassium 4.0, Chloride 109 H, Carbon Dioxide 25, Anion Gap 12.0, BUN 9, Creatinine 0.90, Estimated Creat Clear 99, Estimated GFR 67, Est GFR ( Amer) 81, Glucose 107 H, Calcium 10.2, Magnesium 1.9, Total Bilirubin 0.7, AST 33, ALT 32, Alkaline Phosphatase 84, Total Protein 8.7 H, Albumin 4.7, Globulin 4.0 H, Albumin/Globulin Ratio 1.2 I & O for Last 24 hours: Intake & Output 09/11/23 09/12/23 09/13/23 09/14/23 23:59 23:59 23:59 23:59 Intake Total 3.333 / 3.333 Balance 3.333 / 3.333 Weight 81.647 kg Constitutional Constitutional: no acute distress *Routine HEENT Exam Head: Present normocephalic Eye: Present EOMI and PERRL ENT: Present mucous membranes moist *Routine Neck Exam Neck: Present supple; Absent lymphadenopathy *Routine Respiratory Exam Respiratory: Present CTA bilaterally *Routine Cardiovascular Exam Cardiovascular: Present RRR *Routine Abdominal Exam Abdominal: Present soft and normoactive bowel sounds; Absent tenderness *Routine Rectal Exam Rectal:: deferred *Routine Genitalia Exam Genitalia:: deferred *Routine Extremities Exam Extremities: Absent cyanosis, clubbing or edema *Routine Skin Exam Skin: Present warm; Absent rash *Routine Neurological Exam Neurological: Present alert and oriented X3 H&P: Result Imaging and Cardiology EKG: Status: image reviewed by me, Preliminary report and final report Assessment and Plan *Assessment and plan (1) Hypertensive emergency: Status: Acute Category: Medical Code(s): I16.1 - Hypertensive emergency (2) Hypertension: Status: Chronic Qualifiers: Hypertension type: unspecified Qualified Code(s): I10 - Essential (primary) hypertension Category: Medical Code(s): I10 - Essential (primary) hypertension (3) Hyperlipidemia: Status: Chronic Qualifiers: Hyperlipidemia type: unspecified Qualified Code(s): E78.5 - Hyperlipidemia, unspecified Category: Medical Code(s): E78.5 - Hyperlipidemia, unspecified (4) CVA (cerebral vascular accident): Status: Chronic Qualifiers: CVA mechanism: unspecified Qualified Code(s): I63.9 - Cerebral infarction, unspecified Category: Medical Code(s): I63.9 - Cerebral infarction, unspecified (5) Bipolar 1 disorder: Status: Acute Category: Medical Code(s): F31.9 - Bipolar disorder, unspecified Plan 48-year-old female with past medical history of CVA with some disartria, bipolar disorder, anxiety, uncontrolled hypertension, non medically complaint who presented to the hospital because her head felt swimmy . Patient states that she has been out of her blood pressure medication for approximately 1 week as she has no transportation and has not been unable to come get it. discussed with ED for admission. presented with severe hypertension with mildly to non symptoms. Agreed for inpatient management. Plan as follow: Assessment and plan Hypertensive urgency Started on Cardene drip, closely monitor blood pressure Restart home aspirin, valsartan, Coreg 25 twice daily kidney US History of CVA Restart home aspirin, will add atorvastatin Bipolar disorder Updated patient's medication list, patient is not interested in taking any antidepressant medication except her regular antidepressant medication DVT prophylaxis-heparin
[2023-09-14 21:03] LABS: Prothrombin Time 10.2 seconds (10.1-12.5)
[2023-09-14 21:07] LABS: Troponin I 0.02 ng/ml (0.00-0.034)
[2023-09-14 21:19] LABS: Triiodothryronine (T3) Uptake 42 % (23.5-40.5)
[2023-09-14 21:20] LABS: Free Thyroxine Index 2.5 ug/dL (5.93-13.13)
--- NOTE | 2023-09-14 21:20 | PC.NURSE ---
spoke with [place] for bed assignment dx: hypertensive crisis
[2023-09-14 21:34] LABS: Thyroid Stimulating Hormone 1.42 uIU/mL (0.465-4.68)
--- NOTE | 2023-09-14 22:15 | PC.NURSE ---
called report to justin mancuso on 2nd floor and answered all questions
[2023-09-14 22:20] VITALS: BP 181/111; BP 184/116; PULSE 80; PULSE 90; RESP 18; RESP 20; TEMP 36.4; TEMP 36.7; O2SAT 97; O2SAT 99
[2023-09-14 22:55] VITALS: BP 226/134; PULSE 90
[2023-09-14] MEDS: IRBESARTAN 75MG TABLET 75 MG PO (23:08)
[2023-09-14 23:15] VITALS: BP 202/121
[2023-09-15] VITALS: BP 177/110; PULSE 97; RESP 16; TEMP 36.7; O2SAT 96
[2023-09-15 00:02] VITALS: PULSE 90
[2023-09-15 00:02] LABS: Troponin I 0.02 ng/ml (0.00-0.034)
--- NOTE | 2023-09-15 01:24 | PC.NURSE ---
Call received from GRETEL Wilkins at 0110 stating that patient is stating that she wants to leave hospital because she cant take it anymore. Franky reports that patient is refusing further treatment and requesting to sign out against medical advice. Upon entering room and introducing myself, patient appears to be diaphoretic and restless. She states that she does not want to seek further medical treatment, and wishes to leave. States that she has been trying to contact her son to come and pick her up, but he is not answering his phone. Pt includes that her son lives over by the high school and will walk to his house, since her permanent residence is in [place], [place]. TRN reviewed MAR and noted that patients cardene gtt was turned off/dc at 2255, and Irbesartan dose was given orally at 2308. No other meds given after. Patient states that she feels very anxious, and cannot sleep adding to her reason to leave AMA. Spoke with patient and asked if she would like us to call physician and request medication for sleep and anxiety, allowing her to stay overnight and speak with a physician in the AM on her plan of care for treatment. Patient adamantly refuses and continues to request AMA paperwork. SANTOSH Barth contacted at 0114 and informed of patient wanting to sign out AMA. I was informed by SANTOSH to provide patient necessary paperwork. SANTOSH did not come to bedside at that time after being informed by nursing staff. ELISEO and GRETEL Wilkins explained to patient risks of leaving and stopping all medical treatment within our nursing scope to which patient verbalizes that she understands, continuing with wanting to leave hospital and refusing further medical treatment. Patient and son were personally contacted with numbers listed in patient demographics. Mike, patients son did not answer, VM left to contact [facility] as soon as message was received. , Vinod, was also contacted but phone number listed is not a valid personal use number. Patient is alert and oriented x4 stating her name, birthday, city she is currently in, hospital name she is currently admitted to and why she is here. GRETEL Wilkins and GRETEL Hou (charge nurse) helped patient get dressed, observed patient ambulate independently without issue, and removed IV before AMA paperwork was signed. She was escorted downstairs to [facility] out of building by GRETEL Wilkins and GRETEL Mckenna.
--- NOTE | 2023-09-15 01:52 | PC.NURSE ---
Patient left AMA at 0140 after being educated by Semaj RN. Charge aware.
--- NOTE | 2023-09-15 05:52 | P.EN_ITS ---
patient left AMA
--- NOTE | 2023-09-15 05:52 | EXP.EVENT.NO ---
patient left AMA
== END 2023-09-15 01:30 | disposition left against medical advice (07) ==
LOC: ER 21:07 → 2ND 09-15 12:40
PROVIDERS: Physician Assistant; Admitting Provider Family Medicine; Emergency Provider Emergency Medicine; Visit Provider Family Medicine
DX: I16.1 Hypertensive emergency (principal); I10 Essential (primary) hypertension; E78.5 Hyperlipidemia, unspecified; F31.9 Bipolar disorder, unspecified; Z86.73 Personal history of transient ischemic attack (TIA), and cerebral infarction without residual deficits; F41.9 Anxiety disorder, unspecified
CPT/HCPCS: 36415; 80050; 80053; 83735; 84436; 84443; 84479; 84484; 85025; 85610; 93005; 99291; G0378; J0131; J2405

== ENCOUNTER 2023-09-16 21:06 | Emergency (ER) | payer MEDICAID, SELFPAY ==
[2023-09-16 21:06] VITALS: BP 164/113; PULSE 112; RESP 18; TEMP 37.2; O2SAT 97; BMI 30.7
--- NOTE | 2023-09-16 21:26 | ED_ITS ---
Discharge Plan Disposition Patient Disposition: Home, Self-Care Prescriptions Prescriptions: New irbesartan 300 mg tablet 300 mg PO DAILY Qty: 30 3RF Discontinued valsartan 80 mg tablet 80 mg PO DAILY Qty: 30 2RF No Action aspirin 81 mg tablet,delayed release (DR/EC) 81 mg PO DAILY Referrals Follow up/Referrals: Provider,Referral, [Primary Care Provider] - See instructions Activity Restrictions/Add. Instructions Additional Instructions/Restrictions: Call your family doctor to establish care for this visit to the emergency department and schedule follow-up within 48 hours to ensure improvement. If you have any worsening of your condition or any other concerning signs or symptoms, return to the emergency department or your primary care doctor for further evaluation. 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 Clinical Impressions Clinical Impression: Asymptomatic hypertension Discharge ED Provider: Unruly Fowler General Adult HPI General Chief complaint: Recheck/Abnormal Lab/Rx Stated complaint: clearance recheck Time Seen by Provider: 09/16/23 21:11 Mode of Arrival: EMS Source of Information: Patient and EMS Limitations: No Limitations Description of Symptoms (Recalled from ER Triage Doc. by RN): Patient arrived via EMS and states that she was walking after being kicked out of her home by her and the police were called. EMS arrived and patient was hypertensive. Patient recently left hospital AMA while being treated for hypertension. Patient states she still has not picked up her home medications. Patient denies any complaints. Patient states she was just upset that her son states that she can't seen her grandson anymore. History of Present Illness HPI narrative: Please note that above description of symptoms, in this electronic medical re cord under categorization of recalled from ER triage doctor by RN are reflective of an initial nursing assessment, however, is not reflective of my full history and physical exam that was personally taken and clarified. Consequentially, this preceding description of symptoms, which may include the patient's categorized chief complaint in the EMR, do not reflect my personal clinical impression, and the ultimate description of history of present illness and patient stated complaints should be deferred to this section of the note. Unless stated otherwise or congruent with this section of the note, additional signs, symptoms, or incongruence should be interpreted as inaccurate with my clinical impression. Related Data Home Medications Medication Instructions Recorded Confirmed aspirin 81 mg tablet,delayed 81 mg PO DAILY 08/03/23 09/14/23 release Previous Rx's Medication Instructions Recorded irbesartan 300 mg tablet 300 mg PO DAILY #30 tabs 09/16/23 Allergies Allergy/AdvReac Type Severity Reaction Status Date / Time No Known Allergies Allergy Verified 07/07/18 10:48 [facility] Disclaimer: The information contained in this section may have been updated after the patient was seen, as this information can be updated by other users. Medical History (Updated 09/16/23 @ 21:30 by Unruly Fowler MD) CVA (cerebral vascular accident) Bipolar 1 disorder Hypertension Hyperlipidemia Anxiety Social History (Updated 08/03/23 @ 15:48 by Clementine Montez RN) Smoking Status: Never smoker second hand exposure: Yes alcohol intake: never substance use type: denies use current occupational status: unemployed Travel in the last 8 weeks: None household members: spouse housing: house current occupational exposures/hazards: No caffeine: No ROS Obtained: Yes All systems reviewed & no additional complaints except as documented Physical Exam General General appearance: alert Head Head exam: atraumatic and normocephalic Eye Eye exam: Present normal appearance, PERRL and EOMI Neck Neck exam: Present normal inspection, full ROM and trachea midline Respiratory Respiratory exam: Absent respiratory distress, wheezes, stridor, accessory muscle use or prolonged expiratory phase Cardiovascular Cardiovascular exam: Present other (Pulses equal symmetric in upper and lower extremities) Abdominal Exam Abdominal exam: Present soft; Absent distention, tenderness or pulsatile mass Extremities Exam Extremities exam: Absent edema Neurological Exam Neurological exam: Present alert, oriented X3 and CN II-XII intact; Absent motor sensory deficit Skin Skin exam: Present warm and dry; Absent diaphoresis or erythema Medical Decision Making Medical Records Medical records reviewed: Yes I reviewed the patient's medical records. [place] Inquiry Pt receiving controlled substance: No [place] was queried for this patient: No Vital Signs: 09/16/23 21:06 Temperature 99.0 F Temperature Source Oral Pulse Rate [Left Radial] 112 H Respiratory Rate 18 Blood Pressure [Right Arm] 164/113 H Blood Pressure Mean [Right Arm] 130 Blood Pressure Source [Right Arm] Automatic Cuff Blood Pressure Position [Right Arm] Sitting 02 Sat by Pulse Oximetry 97 Oxygen Delivery Method Room Air Orders (Tests/Meds): ED MEDICATIONS Discontinued Medications Generic Name Dose Route Start Last Admin Trade Name Freq PRN Reason Stop Dose Admin Irbesartan 300 mg 09/16/23 21:18 Irbesartan 300mg Tablet PO 09/16/23 21:19 ONCE ONE Medical Decision Narrative: 48-year-old female history of hypertension, hyperlipidemia, CVA, bipolar disorder, medication noncompliance presenting with EMS for domestic dispute. Patient states that she had a dispute with her . kicked me out, and told her that she needed to go to the hospital. He called EMS. EMS picked her up. Patient had no symptoms, but EMS brought her to the truck to check her vitals, she was hypertensive and tachycardic, patient states that she was walking up a hill away from the house when EMS arrived. Patient was given sublingual nitroglycerin with EMS despite not having symptoms and brought to the emergency department. Patient states she has no headache, vision changes, weakness, numbness, tingling, chest pain, shortness of breath, or any other concerns. Completely asymptomatic at this time. Has not taken her medications. Because patient has asymptomatic hypertension, deemed appropriate for outpatient management and discharge. Because patient at baseline without signs or symptoms of clinical decompensation, deemed appropriate for discharge. Results were relayed to patient who voiced understanding and were agreeable to outpatient management and follow up. I discussed my clinical impression with patient and answered all questions. At this time, the evidence for any other entities in the differential is insufficient to warrant any further testing or ED observation. This was explained as well. Advisory was given that persistent or worsening symptoms require further evaluation. I confirmed the understanding of this discussion. [employer] disclaimer Much of this encounter note is an electronic airplane electrical repairer spoken language to printed text. Electronic airplane electrical repairer of the spoken language may permit errors. Although I have reviewed the note, some errors may still exist. Critical Care Critical Care Time Critical Care Time: No
[2023-09-16] MEDS: IRBESARTAN 150MG TAB 300 MG PO (21:39)
[2023-09-16 21:46] VITALS: BP 164/94; PULSE 100; RESP 19; TEMP 37.2; O2SAT 98
== END 2023-09-16 21:49 | disposition home or self-care (01) ==
PROVIDERS: Emergency Provider Emergency Medicine
DX: R00.0 Tachycardia, unspecified (principal); I10 Essential (primary) hypertension
CPT/HCPCS: 99282

== ENCOUNTER 2023-10-09 16:27 | Observation (INO) | payer MEDICAID, SELFPAY ==
[2023-10-09] VITALS (12 sets, daily range): BP systolic 102–133; BP diastolic 69–98; PULSE 69–112; RESP 14–20; TEMP 36.1–36.4; O2SAT 94–98; BMI 29.9; BMI 34.0; BMI 29.7
--- NOTE | 2023-10-09 16:33 | ECG_ITS ---
APPROVED REPORT Exam: Resting ECG HR:83 bpm ECG Measurements Heart Rate 83 AXES VA 134 P 55 QRSd 100 QRS 30 QT 410 T 81 QTc 450 Conclusion SINUS RHYTHM NONSPECIFIC T-WAVE ABNORMALITY BORDERLINE ECG Electronically signed by : RAJENDRA LOWERY, 10/09/2023 23:31:55
--- NOTE | 2023-10-09 16:44 | CT_ITS ---
PROCEDURE INFORMATION: Exam: CTA Chest With Contrast Exam date and time: 10/09/2023 5:54 PM Age: 48 years old Clinical indication: Injury or trauma; Fall; Blunt trauma (contusions or hematomas); Additional info: Multiple syncopal episodes, fall TECHNIQUE: Imaging protocol: Computed tomographic angiography of the chest with contrast. Exam focused on the arteries. 3D rendering (Not supervised by radiologist): MIP and/or 3D reconstructed images were created by the technologist. Radiation optimization: All CT scans at this facility use at least one of these dose optimization techniques: automated exposure control; mA and/or kV adjustment per patient size (includes targeted exams where dose is matched to clinical indication); or iterative reconstruction. Contrast material: ISOVUE 370; Contrast volume: 100 ml; Contrast route: INTRAVENOUS (IV); COMPARISON: 1. CR XR CHEST PORTABLE 08/03/2023 1:31 PM 2. CR XR CHEST PORTABLE 05/26/2023 7:43 PM 3. CR XR CHEST PORTABLE 03/29/2023 11:00 PM FINDINGS: Pulmonary arteries: Normal. No pulmonary emboli. Aorta: There is atherosclerotic disease of the visualized aorta and its major branch vessels. Lungs: Scattered areas of bronchial wall thickening which are likely chronic inflammatory. A few areas of subpleural reticulation are noted, nonspecific. Pleural spaces: Unremarkable. No pneumothorax. No pleural effusion. Heart: Unremarkable. No cardiomegaly. No pericardial effusion. Lymph nodes: Unremarkable. No enlarged lymph nodes. Intraperitoneal space: Please see the dedicated interpretation of abdomen and pelvis for findings in that region. Bones/joints: There is diffuse degenerative disease of the visualized osseous structures. Soft tissues: Unremarkable. IMPRESSION: 1. No acute traumatic injury is identified. 2. Please see the dedicated interpretation of abdomen and pelvis for findings in that region.
--- NOTE | 2023-10-09 16:44 | CT_ITS ---
PROCEDURE INFORMATION: Exam: CTA Head With Contrast, Arteriography Exam date and time: 10/09/2023 5:50 PM Age: 48 years old Clinical indication: Injury or trauma; Fall; Blunt trauma; Head; Additional info: Multiple syncopal episodes, fall TECHNIQUE: Imaging protocol: Computed tomographic angiography of the head with contrast. Exam focused on the arteries. 3D rendering (Not supervised by radiologist): MIP and/or 3D reconstructed images were created by the technologist. Radiation optimization: All CT scans at this facility use at least one of these dose optimization techniques: automated exposure control; mA and/or kV adjustment per patient size (includes targeted exams where dose is matched to clinical indication); or iterative reconstruction. Contrast material: ISOVUE 370; Contrast volume: 100 ml; Contrast route: INTRAVENOUS (IV); COMPARISON: CT ANGIO HEAD 05/26/2023 7:23 PM FINDINGS: ANTERIOR CIRCULATION: Right internal carotid artery: Intracranial segment is patent with no significant stenosis. No aneurysm. Right middle cerebral artery: No occlusion or significant stenosis. No aneurysm. Right anterior cerebral artery: No occlusion or significant stenosis. No aneurysm. Left internal carotid artery: Intracranial segment is patent with no significant stenosis. No aneurysm. Left middle cerebral artery: No occlusion or significant stenosis. No aneurysm. Left anterior cerebral artery: No occlusion or significant stenosis. No aneurysm. POSTERIOR CIRCULATION: Right vertebral artery: No occlusion or significant stenosis. No aneurysm. Left vertebral artery: No occlusion or significant stenosis. No aneurysm. Basilar artery: No occlusion or significant stenosis. No aneurysm. Right posterior cerebral artery: No occlusion or significant stenosis. No aneurysm. Left posterior cerebral artery: No occlusion or significant stenosis. No aneurysm. Brain: White matter hypoattenuating foci are present which can be seen with small-vessel disease, prior infectious/inflammatory events, or prior TBI Cerebral ventricles: No ventriculomegaly. Bones/joints: Unremarkable. No acute fracture. Soft tissues: Unremarkable. IMPRESSION: No large vessel stenosis or occlusion.
--- NOTE | 2023-10-09 16:44 | CT_ITS ---
PROCEDURE INFORMATION: Exam: CT Head Without Contrast Exam date and time: 10/09/2023 5:45 PM Age: 48 years old Clinical indication: Injury or trauma; Fall; Blunt trauma (contusions or hematomas); Additional info: Multiple syncopal episodes, fall TECHNIQUE: Imaging protocol: Computed tomography of the head without contrast. Radiation optimization: All CT scans at this facility use at least one of these dose optimization techniques: automated exposure control; mA and/or kV adjustment per patient size (includes targeted exams where dose is matched to clinical indication); or iterative reconstruction. COMPARISON: CT CERVICAL SPINE WO CON 10/09/2023 5:45 PM FINDINGS: Brain: White matter hypoattenuating foci are present which can be seen with small-vessel disease, prior infectious/inflammatory events, or prior TBI. No hyperattenuating foci are identified to suggest acute intracranial hemorrhage. Cerebral ventricles: No ventriculomegaly. Paranasal sinuses: Visualized sinuses are unremarkable. No fluid levels. Mastoid air cells: Visualized mastoid air cells are well aerated. Bones: Unremarkable. No acute fracture. Soft tissues: Unremarkable. IMPRESSION: 1. White matter hypoattenuating foci are present which can be seen with small-vessel disease, prior infectious/inflammatory events, or prior TBI. 2. No hyperattenuating foci are identified to suggest acute intracranial hemorrhage.
--- NOTE | 2023-10-09 16:44 | CT_ITS ---
PROCEDURE INFORMATION: Exam: CTA Neck With Contrast Exam date and time: 10/09/2023 5:50 PM Age: 48 years old Clinical indication: Injury or trauma; Fall; Other: Multiple syncopal episodes; Additional info: Multiple syncopal episodes, fall TECHNIQUE: Imaging protocol: Computed tomographic angiography of the neck with contrast. Exam focused on the cervical segments of the vasculature. 3D rendering (Not supervised by radiologist): MIP and/or 3D reconstructed images were created by the technologist. Radiation optimization: All CT scans at this facility use at least one of these dose optimization techniques: automated exposure control; mA and/or kV adjustment per patient size (includes targeted exams where dose is matched to clinical indication); or iterative reconstruction. Contrast material: ISOVUE; Contrast volume: 100 ml; Contrast route: INTRAVENOUS (IV); COMPARISON: CT ANGIO NECK 05/26/2023 7:23 PM FINDINGS: Right common carotid artery: No stenosis. No dissection or occlusion. Right internal carotid artery: No stenosis of the extracranial segment. No dissection or occlusion. Right external carotid artery: No occlusion or stenosis of the origin. Left common carotid artery: No stenosis. No dissection or occlusion. Left internal carotid artery: No stenosis of the extracranial segment. No dissection or occlusion. Left external carotid artery: No occlusion or stenosis of the origin. Right vertebral artery: No stenosis. No dissection or occlusion. Left vertebral artery: No stenosis. No dissection or occlusion. Soft tissues: Normal. No significant soft tissue swelling. Bones/joints: No acute fracture. IMPRESSION: No stenosis or occlusion. REFERENCES: NASCET CRITERIA. The degree of stenosis in the cervical segment of the internal carotid artery is based on NASCET criteria. Normal is no stenosis. Mild is less than 50% stenosis. Moderate is 50-69% stenosis. Severe is 70% to 99% stenosis. Total occlusion is no detectable patent lumen.
--- NOTE | 2023-10-09 16:45 | CT_ITS ---
PROCEDURE INFORMATION: Exam: CT Cervical Spine Without Contrast Exam date and time: 10/09/2023 5:45 PM Age: 48 years old Clinical indication: Injury or trauma; Fall; Blunt trauma; Additional info: Syncope, fall TECHNIQUE: Imaging protocol: Computed tomography of the cervical spine without contrast. Radiation optimization: All CT scans at this facility use at least one of these dose optimization techniques: automated exposure control; mA and/or kV adjustment per patient size (includes targeted exams where dose is matched to clinical indication); or iterative reconstruction. COMPARISON: CT ANGIO NECK 05/26/2023 7:23 PM FINDINGS: Bones: No acute fracture. Normal alignment. No significant disc bulge or herniation. No severe spinal canal stenosis. No significant neural foraminal narrowing. Lungs: Lung apices are normal. Soft tissues: Unremarkable. IMPRESSION: No acute findings.
--- NOTE | 2023-10-09 16:51 | CT_ITS ---
PROCEDURE INFORMATION: Exam: CTA Abdomen and Pelvis With Contrast Exam date and time: 10/09/2023 5:54 PM Age: 48 years old Clinical indication: Screening exam; Purpose: Gi bleeding; Additional info: Gi bleed, syncope TECHNIQUE: Imaging protocol: Computed tomographic angiography of the abdomen and pelvis with contrast. Exam focused on the arteries. 3D rendering (Not supervised by radiologist): MIP and/or 3D reconstructed images were created by the technologist. Radiation optimization: All CT scans at this facility use at least one of these dose optimization techniques: automated exposure control; mA and/or kV adjustment per patient size (includes targeted exams where dose is matched to clinical indication); or iterative reconstruction. Contrast material: ISOVUE 370; Contrast volume: 100 ml; Contrast route: INTRAVENOUS (IV); COMPARISON: 1. CT ANGIO CHEST PE PROTOCOL 10/09/2023 5:54 PM 2. CR XR CHEST PORTABLE 08/03/2023 1:31 PM 3. CR XR CHEST PORTABLE 05/26/2023 7:43 PM FINDINGS: Aorta: No aortic aneurysm. No aortic dissection. Celiac trunk and mesenteric arteries: No occlusion or significant stenosis. Renal arteries: No occlusion or significant stenosis. Right iliac arteries: No occlusion or significant stenosis. Left iliac arteries: No occlusion or significant stenosis. Liver: No mass. Gallbladder and biliary ducts: Unremarkable. No calcified stones. No ductal dilation. Pancreas: There is fatty replacement of the pancreas. Spleen: Unremarkable. No splenomegaly. Adrenal glands: Unremarkable. No mass. Kidneys and ureters: Unremarkable. No solid mass. No hydronephrosis. Stomach and bowel: There is a duodenal diverticulum. There are scattered colonic diverticula without evidence for active diverticulitis. Appendix: No evidence of appendicitis. Intraperitoneal space: Unremarkable. No free air. No significant fluid collection. Lymph nodes: Unremarkable. No enlarged lymph nodes. Urinary bladder: Unremarkable. No mass. Reproductive: Unremarkable as visualized. Bones/joints: No acute fracture. Soft tissues: There is a small fat containing umbilical hernia. Other findings: Please see the dedicated interpretation of the thorax for findings in that region. IMPRESSION: 1. At the time of imaging, no active vascular extravasation was observed. It is recommended to correlate with clinical findings for comprehensive assessment. 2. Please see the dedicated interpretation of the thorax for findings in that region.
[2023-10-09 16:53] LABS: Basophils # 0.2 K/mm3 (0-0.2); Basophils % 1.4 % (0.1-2.0); Eosinophils # 0.4 K/mm3 (0.0-0.4); Eosinophils % 2.8 % (0.1-12.0); Hemoglobin 17.7 g/dL (12.2-16.2); Lymphocytes # 5.1 K/mm3 (0.7-4.5); Lymphocytes % 39.3 % (10-50); Mean Corpuscular Hemoglobin 29.9 pg (27.0-31.2); Mean Corpuscular Volume 87.9 fl (81-99); Mean Platelet Volume 9.4 fl (7.4-10.4); Monocytes # 0.8 K/mm3 (0.1-1.0); Monocytes % 6.4 % (1.7-9.3); Neutrophils # 6.5 K/mm3 (1.8-7.8); Neutrophils % 50.1 % (37.0-80.0); Platelet Count 418 K/mm3 (142-424); Red Blood Count 5.92 M/mm3 (4.20-5.40); Red Cell Distribution Width 13.7 % (11.5-17.5)
[2023-10-09 16:55] LABS: Albumin Level 4.8 g/dl (3.5-5.0); Chloride 101 mmol/L (98-107); Potassium 3.8 mmoL/L (3.5-5.1); Sodium 138 mmol/L (136-145)
[2023-10-09 16:55] LABS: VBG Base Excess -2.4 mmol/L (-2.4-2.3); VBG HCO3 23.4 mmol/L (23-30); VBG Oxygen Saturation 95.1 % (50-70); VBG PCO2 44.4 mmol/L (35-51); VBG PH 7.34 mmol/L (7.31-7.41); VBG PO2 75.2 mmol/L (28-40); VBG Total CO2 24.8 mmol/L (23-27)
[2023-10-09 16:56] LABS: Occult Blood,Stool Negative (Negative)
[2023-10-09 16:56] LABS: Lactate Venous 3.5 mmol/L (0.4-2.0)
[2023-10-09 16:57] LABS: Blood Urea Nitrogen 23 mg/dl (7-17); Estimated Glomerular Filt Rate 44 ml/min (>60); GFR (African American) 53 ML/MIN (>60)
[2023-10-09 16:58] LABS: Alanine Aminotransferase 32 U/L (12-78); Albumin/Globulin Ratio 1.1 (1.1-1.8); Alkaline Phosphatase 91 U/L (38-126); Anion Gap 16.8 mEq/L (5-15); Aspartate Amino Transferase 31 U/L (14-36); Bilirubin,Total 0.9 mg/dl (0.2-1.3); Carbon Dioxide 24 mmol/L (22.0-30.0); Globulin 4.3 g/dL (1.3-3.2); Glucose 124 mg/dl (74-100); Magnesium 1.7 mg/dl (1.6-2.3); Phosphorous 4.4 mg/dl (2.5-4.5); Total Protein,Serum 9.1 g/dl (6.3-8.2)
[2023-10-09 17:01] LABS: Activated Partial Thrombo Time 30.5 seconds (22.8-30.6); INR 0.91 (0.9-1.1); Prothrombin Time 10.3 seconds (10.1-12.5)
[2023-10-09 17:04] LABS: C-Reactive Protein 3.9 mg/L (0-4)
[2023-10-09 17:06] LABS: HCG Qualitative, Serum Negative (Negative)
[2023-10-09 17:15] LABS: Troponin I < 0.01 ng/ml (0.00-0.034)
[2023-10-09 17:18] LABS: NT Pro Brain Natriuretic Pep. 28.6 pg/mL (0-125); T4 (Thyroxine) 5.7 ug/dl (5.53-11.0)
[2023-10-09 17:31] LABS: Thyroid Stimulating Hormone 3.37 uIU/mL (0.465-4.68)
[2023-10-09 17:35] LABS: Creatine Kinase 74 U/L (30-135)
--- NOTE | 2023-10-09 17:36 | PC.NURSE ---
PT ambulatory to bathroom. Urine sample collected.
[2023-10-09 17:38] LABS: Microscopic, Urine URINE MICROSCOPIC (MICROSCOPIC)
--- NOTE | 2023-10-09 17:41 | PC.NURSE ---
PT gone to RAD via stretcher
[2023-10-09 17:45] LABS: Appearance,Urine CLEAR (Clear); Bilirubin,Urine Negative (Negative); Blood, Urine Negative (Negative); Color,Urine YELLOW (Yellow); Glucose,Urine (UA) Negative (Negative); Ketones,Urine Negative (Negative); Leukocyte Esterase,Urine 1+ (Negative); Nitrate,Urine POSITIVE (Negative); Protein,Urine TRACE (Negative); Urobilinogen,Urine 0.2 EU/dl (0.2)
[2023-10-09 17:48] LABS: Procalcitonin 0.086 ng/mL (0.0-2.0)
[2023-10-09 17:57] LABS: Benzodiazepines Screen,Urine Negative ng/ml (<200)
[2023-10-09 17:58] LABS: Amphetamine/Metha Screen,Urine Positive ng/ml (<1000)
[2023-10-09 17:59] LABS: Barbiturates Screen,Urine Negative ng/ml (<200); Cannabinoid Screen,Urine Negative ng/ml (<50)
[2023-10-09 18:00] LABS: Cocaine Screen,Urine Negative ng/ml (<300)
[2023-10-09 18:01] LABS: Methadone Screen,Urine Negative ng/ml (<300); Opiate Screen,Urine Negative ng/ml (<300)
[2023-10-09 18:02] LABS: Bacteria,Urine 3+ /lpf; Phencyclidine Screen,Urine Negative ng/ml (<25)
[2023-10-09 18:05] LABS: Hyaline Casts,Urine OCC #/lpf (0); Squamous Epithelial Cell,Urine Occasional #/hpf (0-5)
--- NOTE | 2023-10-09 18:06 | PC.NURSE ---
PT returned to room from RAD
--- NOTE | 2023-10-09 19:49 | PC.NURSE ---
in with patient, another green top drawn
--- NOTE | 2023-10-09 19:52 | EXP.HP ---
History of Present Illness *Admission Date: 10/09/23 *Reason for visit:: UTI/ Sepsis *History of present illness: This patient is a 48-year-old female with a history of poorly controlled hypertension, hyperlipidemia, anxiety, bipolar disorder, and prior CVA who has had multiple previous ED and hospital stays and typically leaves AMA presenting with concern for multiple syncopal episodes since yesterday. patient does not want to cooperate with interview. history taken from ED: Patient is brought in by EMS who noted that she was hypotensive when they got on scene, but she responded well to an initial bolus of IV fluids. Her arrives and states that she has not been taking care of herself at all, keeps leaving AMA every time she tries to go to the doctor, has still been using methamphetamines, and has been more confused every day. He reports that she has been having hot flashes and has been freezing them at the house, turning the air conditioner all the way down at all times. He notes that she keeps passing out repeatedly, with the most recent syncopal episode being today just prior to arrival, which is why he called EMS to bring her in. Patient is tearful on examination. She is only oriented to person and place, but not time or situation. She states she does not know what is going on she just feels bad. She states she wants to go home. She think she has been having bloody stools, but she denies any other concerns or complaints. [facility] Disclaimer: The information contained in this section may have been updated after the patient was seen, as this information can be updated by other users. Medical History CVA (cerebral vascular accident) Bipolar 1 disorder Hypertension Hyperlipidemia Anxiety Social History Smoking Status: Former smoker tobacco type: cigarettes packs per day: 0 second hand exposure: Yes alcohol intake: never substance use type: denies use current occupational status: unemployed Travel in the last 8 weeks: None household members: spouse housing: house current occupational exposures/hazards: No caffeine: No Review of Systems Review of Systems Review of systems:: pertinent systems reviewed and negative unless documented below Meds Home Medications and Allergies Home Medications ?Medication ?Instructions ?Recorded ?Confirmed ?Type irbesartan 300 mg tablet 300 mg PO DAILY #30 tabs 09/16/23 10/09/23 Rx amlodipine 5 mg tablet 5 mg PO DAILY #30 tabs 10/01/23 10/09/23 Rx hydrochlorothiazide 25 mg tablet 25 mg PO DAILY #30 tabs 10/01/23 10/09/23 Rx bisoprolol fumarate 5 mg tablet 5 mg PO DAILY 10/10/23 10/10/23 History levofloxacin 750 mg tablet 750 mg PO Q24H 30 days #30 tabs 10/10/23 Rx New Prescriptions to Start Prescriptions: levofloxacin Jorge Duncan Allergies Allergy/AdvReac Type Severity Reaction Status Date / Time No Known Allergies Allergy Verified 10/01/23 10:00 Exam Data for Last 24 hours Vital signs and Labs for Last 24 Hours: Temp Pulse Resp BP Pulse Ox O2 Del Method 97.5 F L 110 H 18 121/81 98 Room Air 10/09/23 19:49 10/09/23 19:30 10/09/23 19:30 10/09/23 19:30 10/09/23 19:30 10/09/23 18:31 Laboratory Results - last 24 hr 10/09/23 16:25: WBC 13.0 H, RBC 5.92 H, Hgb 17.7 H, Hct 52.0 H, MCV 87.9, MCH 29.9, MCHC 34.0, RDW 13.7, Plt Count 418, MPV 9.4, Neut % (Auto) 50.1, Lymph % (Auto) 39.3, Pope % (Auto) 6.4, Eos % (Auto) 2.8, Baso % (Auto) 1.4, Neut # (Auto) 6.5, Lymph # (Auto) 5.1 H, Pope # (Auto) 0.8, Eos # (Auto) 0.4, Baso # (Auto) 0.2, PT 10.3, INR 0.91, APTT 30.5, Sodium 138, Potassium 3.8, Chloride 101, Carbon Dioxide 24, Anion Gap 16.8 H, BUN 23 H, Creatinine 1.30 H, Estimated GFR 44 L, Est GFR ( Amer) 53 L, Glucose 124 H, Calcium 10.0, Phosphorus 4.4, Magnesium 1.7, Total Bilirubin 0.9, AST 31, ALT 32, Alkaline P
--- NOTE | 2023-10-09 19:58 | PC.NURSE ---
called report to floor, spoke with luiz
--- NOTE | 2023-10-09 20:24 | HMH.EDGENADL ---
Discharge Plan Disposition Patient Disposition: Admitted Condition: Fair Clinical Impressions Clinical Impression: UTI (urinary tract infection), Sepsis, AMS (altered mental status), ALMA (acute kidney injury) Discharge ED Provider: Alena Camara General Adult HPI General Chief complaint: Syncope Stated complaint: Syncopal Episode Time Seen by Provider: 10/09/23 16:33 Mode of Arrival: EMS Limitations: No Limitations Description of Symptoms (Recalled from ER Triage Doc. by RN): Pt rought in by EMS d/t multiple syncopal episodes since yesterday (10/07) and fell and hit her head while in the kitchen. Per pt's , it looked like she might have had a seizure, I don't know . He reports, She need to have something done. She doens't want me to call for help but I can't keep watching her do this . reports these episodes last approx 10 seconds to 2-3 minutes. Pt is Alert and oriented to person. She believe the yr is 1998 and month is April or August . States she has been more confused lately. She also reports she has been having hot flashes temp is 96.9 rectally. History of Present Illness HPI narrative: This patient is a 48-year-old female with a history of poorly controlled hypertension, hyperlipidemia, anxiety, bipolar disorder, and prior CVA who has had multiple previous ED and hospital stays and typically leaves AMA presenting with concern for multiple syncopal episodes since yesterday. Patient is brought in by EMS who noted that she was hypotensive when they got on scene, but she responded well to an initial bolus of IV fluids. Her arrives and states that she has not been taking care of herself at all, keeps leaving AMA every time she tries to go to the doctor, has still been using methamphetamines, and has been more confused every day. He reports that she has been having hot flashes and has been freezing them at the house, turning the air conditioner all the way down at all times. He notes that she keeps passing out repeatedly, with the most recent syncopal episode being today just prior to arrival, which is why he called EMS to bring her in. Patient is tearful on examination. She is only oriented to person and place, but not time or situation. She states she does not know what is going on she just feels bad. She states she wants to go home. She think she has been having bloody stools, but she denies any other concerns or complaints. Related Data Home Medications ?Medication ?Instructions ?Recorded ?Confirmed aspirin 81 mg tablet,delayed 81 mg PO DAILY 08/03/23 10/01/23 release Previous Rx's ?Medication ?Instructions ?Recorded irbesartan 300 mg tablet 300 mg PO DAILY #30 tabs 09/16/23 amlodipine 5 mg tablet 5 mg PO DAILY #30 tabs 10/01/23 bisoprolol fumarate 5 mg tablet 5 mg PO DAILY #90 tabs 10/01/23 hydrochlorothiazide 25 mg tablet 25 mg PO DAILY #30 tabs 10/01/23 Allergies Allergy/AdvReac Type Severity Reaction Status Date / Time No Known Allergies Allergy Verified 10/01/23 10:00 [facility] Disclaimer: The information contained in this section may have been updated after the patient was seen, as this information can be updated by other users. Medical History CVA (cerebral vascular accident) Bipolar 1 disorder Hypertension Hyperlipidemia Anxiety Social History Smoking Status: Current every day smoker tobacco type: cigarettes packs per day: 0 second hand exposure: Yes alcohol intake: never substance use type: denies use current occupational status: unemployed Travel in the last 8 weeks: None household members: spouse housing: house current occupational exposures/hazards: No caffeine: No ROS Obtained: Yes All systems reviewed & no additional complaints except as documented Physical Exam General General appearance: alert and obese Comment: Crying, dishevel
[2023-10-09 20:42] LABS: Troponin I < 0.01 ng/ml (0.00-0.034)
[2023-10-09 20:53] LABS: Reflex Lactic Add Lactic Reflex
[2023-10-09 21:37] LABS: Lactic Acid Follow Up (RFLX 1) 1.5 mmol/L (0.7-2.1)
[2023-10-09 23:01] LABS: Troponin I < 0.01 ng/ml (0.00-0.034)
[2023-10-10] VITALS: BP 154/88; PULSE 75; RESP 16; TEMP 36.6; O2SAT 98
[2023-10-10 04:00] VITALS: BP 160/114; PULSE 111; TEMP 37.1; O2SAT 100; BMI 34.0
--- NOTE | 2023-10-10 05:01 | PC.NURSE ---
Alert and oriented. Patient has had no complaints throughout the night. 1 assist to the bathroom. IV fluids infusing. Bed alarm on. Pt has had no episodes of syncope. Call light in reach.
[2023-10-10 06:57] LABS: Albumin Level 4.3 g/dl (3.5-5.0); Chloride 104 mmol/L (98-107); Potassium 3.6 mmoL/L (3.5-5.1); Sodium 138 mmol/L (136-145)
[2023-10-10 07:00] LABS: Alanine Aminotransferase 25 U/L (12-78); Albumin/Globulin Ratio 1.2 (1.1-1.8); Alkaline Phosphatase 91 U/L (38-126); Anion Gap 9.6 mEq/L (5-15); Aspartate Amino Transferase 27 U/L (14-36); Bilirubin,Total 0.6 mg/dl (0.2-1.3); Blood Urea Nitrogen 16 mg/dl (7-17); Carbon Dioxide 28 mmol/L (22.0-30.0); Creatinine Clearance Estimated 99 mL/min (50-200); Estimated Glomerular Filt Rate 67 ml/min (>60); GFR (African American) 81 ML/MIN (>60); Globulin 3.5 g/dL (1.3-3.2); Total Protein,Serum 7.8 g/dl (6.3-8.2)
[2023-10-10 07:01] LABS: Calcium 9.2 mg/dl (8.4-10.2); Glucose 109 mg/dl (74-100); Magnesium 1.5 mg/dl (1.6-2.3)
[2023-10-10 07:02] LABS: Basophils # 0.1 K/mm3 (0-0.2); Basophils % 0.9 % (0.1-2.0); Eosinophils # 0.2 K/mm3 (0.0-0.4); Eosinophils % 2.1 % (0.1-12.0); Hematocrit 47.5 % (37.0-47.0); Lymphocytes # 3.8 K/mm3 (0.7-4.5); Lymphocytes % 33.5 % (10-50); Mean Corpuscular HGB Conc 33.2 g/dL (31.8-35.4); Mean Corpuscular Hemoglobin 29.7 pg (27.0-31.2); Mean Corpuscular Volume 89.5 fl (81-99); Mean Platelet Volume 9.7 fl (7.4-10.4); Monocytes # 0.7 K/mm3 (0.1-1.0); Neutrophils # 6.5 K/mm3 (1.8-7.8); Neutrophils % 57.4 % (37.0-80.0); Platelet Count 272 K/mm3 (142-424); Red Blood Count 5.31 M/mm3 (4.20-5.40); Red Cell Distribution Width 13.7 % (11.5-17.5); White Blood Count 11.2 K/mm3 (4.8-10.8)
[2023-10-10 07:12] LABS: Hemoglobin 15.8 g/dL (12.2-16.2)
[2023-10-10 08:00] VITALS: BP 173/101; PULSE 77; RESP 18; TEMP 36.5; O2SAT 100
--- NOTE | 2023-10-10 08:02 | HMH.PHAINT1 ---
Pharmacy Intervention Comments: HOME MEDICATION LIST VERIFIED USING LIST FROM OUTPATIENT PHARMACY AND PHYSICIAN OFFICE NOTES
--- NOTE | 2023-10-10 12:38 | EXP.DC.SUM ---
General Admission date:: 10/09/23 Discharge date: 10/10/23 HPI HPI HPI: This patient is a 48-year-old female with a history of poorly controlled hypertension, hyperlipidemia, anxiety, bipolar disorder, and prior CVA who has had multiple previous ED and hospital stays and typically leaves AMA presenting with concern for multiple syncopal episodes since yesterday. patient does not want to cooperate with interview. history taken from ED: Patient is brought in by EMS who noted that she was hypotensive when they got on scene, but she responded well to an initial bolus of IV fluids. Her arrives and states that she has not been taking care of herself at all, keeps leaving AMA every time she tries to go to the doctor, has still been using methamphetamines, and has been more confused every day. He reports that she has been having hot flashes and has been freezing them at the house, turning the air conditioner all the way down at all times. He notes that she keeps passing out repeatedly, with the most recent syncopal episode being today just prior to arrival, which is why he called EMS to bring her in. Patient is tearful on examination. She is only oriented to person and place, but not time or situation. She states she does not know what is going on she just feels bad. She states she wants to go home. She think she has been having bloody stools, but she denies any other concerns or complaints. Hospital Course Hospital Course Hospital Course: 48 year-old female with a history of poorly controlled hypertension, hyperlipidemia, anxiety, bipolar disorder, and prior CVA who has had multiple previous ED and hospital stays and typically leaves AMA presenting with concern for multiple syncopal episodes since yesterday. Arriving on AMS, hypothermic. Labs demonstrated leukocytosis, elevated lactic acid, and concerns for urinary tract infection. Met sepsis criteria She was given a sepsis bolus of IV fluids as well as IV Rocephin for targeted treatment of her urinary tract infection. Blood cultures and urine cultures were sent. Drug screen is positive for amphetamines. Patient also has an ALMA with a creatinine of 1.3 and appears clinically dry based on lab evaluation. Discussed with ED. Agreed for inpatient managemnt. Plan: Patient was treated for sepsis from UTI, Urine culture positive for gram negative rods, patient was discharged on oral levofloxacin, patient tolerated well Patient is insiting on discharge or she will leave AMA, patient was discharged and counseled on f/u with PCP for final culture sensitivities or if her symptoms worsens. On the date of discharge, the patient reported feeling stable. The patient was found not to be in any acute distress, and no new abnormalities on physical examination. Further, the patient expressed appropriate understanding of, and agreement with, the discharge recommendations, medications, and plan. Time spent 37 mins Exam Data for Last 24 hours Vital signs and Labs for Last 24 Hours: Temp Pulse Resp BP Pulse Ox O2 Del Method 97.7 F 77 18 173/101 H 100 Room Air 10/10/23 08:00 10/10/23 08:00 10/10/23 08:00 10/10/23 08:00 10/10/23 08:00 10/10/23 11:46 Laboratory Results - last 24 hr 10/09/23 16:25: WBC 13.0 H, RBC 5.92 H, Hgb 17.7 H, Hct 52.0 H, MCV 87.9, MCH 29.9, MCHC 34.0, RDW 13.7, Plt Count 418, MPV 9.4, Neut % (Auto) 50.1, Lymph % (Auto) 39.3, [place] % (Auto) 6.4, Eos % (Auto) 2.8, Baso % (Auto) 1.4, Neut # (Auto) 6.5, Lymph # (Auto) 5.1 H, [place] # (Auto) 0.8, Eos # (Auto) 0.4, Baso # (Auto) 0.2, PT 10.3, INR 0.91, APTT 30.5, Sodium 138, Potassium 3.8, Chloride 101, Carbon Dioxide 24, Anion Gap 16.8 H, BUN 23 H, Creatinine 1.30 H, Estimated GFR 44 L, Est GFR ( Amer) 53 L, Glucose 124 H, Calcium 10.0, Phosphorus 4.4, Magnesium 1.7, Total Bilirubin 0.9, AST 31, ALT 32, Alkaline Phosphatase 91, Total Creatine Kinase 74, Troponin I < 0.01, C-Reactive Protein 3.9, NT-Pro-B Natriure
--- NOTE | 2023-10-14 10:23 | CARE MANAGER ---
Attempted to contact patient related to hospital discharge. No VM option. GRETEL Patel
== END 2023-10-10 12:38 | disposition home or self-care (01) ==
LOC: ER 18:18 → 2ND 20:29
PROVIDERS: Nurse Practitioner Family; Admitting Provider Internal Medicine; Emergency Provider Emergency Medicine; Visit Provider Internal Medicine
DX: N39.0 Urinary tract infection, site not specified (principal); A41.9 Sepsis, unspecified organism; N17.9 Acute kidney failure, unspecified; I10 Essential (primary) hypertension; E78.5 Hyperlipidemia, unspecified; F41.9 Anxiety disorder, unspecified; F31.9 Bipolar disorder, unspecified; R41.82 Altered mental status, unspecified; F15.10 Other stimulant abuse, uncomplicated; Z91.199 Patient's noncompliance with other medical treatment and regimen due to unspecified reason; R55 Syncope and collapse
CPT/HCPCS: 36415; 70450; 70496; 70498; 71275; 72125; 74174; 80050; 80053; 80307; 81001; 82272; 82550; 82803; 83605; 83735; 83880; 84100; 84145; 84436; 84443; 84484; 84703; 85025; 85610; 85730; 86140; 87040; 87077; 87086; 87088; 87186; 93005; 99291; G0328; G0378; J0696; J1650; J1790; J7120; Q9967

== ENCOUNTER 2024-06-28 16:56 | Observation (INO) | payer MEDICAID, SELFPAY ==
[2024-06-28] VITALS (7 sets, daily range): BP systolic 170–210; BP diastolic 95–113; PULSE 73–88; RESP 16–20; TEMP 36.6; O2SAT 92–100; BMI 30.9; BMI 31.4
--- NOTE | 2024-06-28 17:03 | CT_ITS ---
PROCEDURE INFORMATION: Exam: CTA Neck With Contrast Exam date and time: 06/28/2024 5:15 PM Age: 49 years old Clinical indication: Stroke-like symptoms; Speech disturbance; Left facial droop; Additional info: Possible stroke. Slurring words and left side face droop along with lue weakness, PT has HX of TIA TECHNIQUE: Imaging protocol: Computed tomographic angiography of the neck with contrast. Exam focused on the cervical segments of the vasculature. 3D rendering (Not supervised by radiologist): MIP and/or 3D reconstructed images were created by the technologist. Radiation optimization: All CT scans at this facility use at least one of these dose optimization techniques: automated exposure control; mA and/or kV adjustment per patient size (includes targeted exams where dose is matched to clinical indication); or iterative reconstruction. Contrast material: ISOVUE 370; Contrast volume: 80 ml; Contrast route: INTRAVENOUS (IV); COMPARISON: CT ANGIO NECK 10/09/2023 5:50 PM FINDINGS: Right common carotid artery: No stenosis. No dissection or occlusion. Right internal carotid artery: No stenosis of the extracranial segment. No dissection or occlusion. Right external carotid artery: No occlusion or stenosis of the origin. Left common carotid artery: No stenosis. No dissection or occlusion. Left internal carotid artery: No stenosis of the extracranial segment. No dissection or occlusion. Left external carotid artery: No occlusion or stenosis of the origin. Right vertebral artery: The right vertebral artery is developmentally hypoplastic, patent. Left vertebral artery: The left vertebral artery is dominant, patent. Soft tissues: Normal. No significant soft tissue swelling. Bones/joints: No acute fracture. A disc protrusion is noted at C5-C6, stable. Lungs: 5-6 mm peripheral subsolid opacity in the left upper lobe could be inflammatory, not well assessed due to motion. This does appear new compared to prior. The lung apices demonstrate air trapping. IMPRESSION: 1. No acute vascular findings in the neck. 2. 0% right ICA stenosis. 3. 0% left ICA stenosis. 4. The vertebral arteries are patent without stenoses. REFERENCES: NASCET CRITERIA. The degree of stenosis in the cervical segment of the internal carotid artery is based on NASCET criteria. Normal is no stenosis. Mild is less than 50% stenosis. Moderate is 50-69% stenosis. Severe is 70% to 99% stenosis. Total occlusion is no detectable patent lumen.
--- NOTE | 2024-06-28 17:03 | CT_ITS ---
PROCEDURE INFORMATION: Exam: CTA Head With Contrast, Arteriography Exam date and time: 06/28/2024 5:15 PM Age: 49 years old Clinical indication: Stroke-like symptoms; Visual disturbance; Left facial droop; Additional info: Possible stroke. Slurring words and left side face droop along with lue weakness, PT has HX of TIA TECHNIQUE: Imaging protocol: Computed tomographic angiography of the head with contrast. Exam focused on the arteries. 3D rendering (Not supervised by radiologist): MIP and/or 3D reconstructed images were created by the technologist. Radiation optimization: All CT scans at this facility use at least one of these dose optimization techniques: automated exposure control; mA and/or kV adjustment per patient size (includes targeted exams where dose is matched to clinical indication); or iterative reconstruction. Contrast material: ISOVUE 370; Contrast volume: 80 ml; Contrast route: INTRAVENOUS (IV); COMPARISON: 1. CT ANGIO HEAD 10/09/2023 5:[address] HEAD/BRAIN WO CON 10/09/2023 5:45 PM FINDINGS: ANTERIOR CIRCULATION: Right internal carotid artery: Intracranial segment is patent with no significant stenosis. No aneurysm. Right middle cerebral artery: No occlusion or significant stenosis. No aneurysm. Right anterior cerebral artery: No occlusion or significant stenosis. No aneurysm. Left internal carotid artery: Intracranial segment is patent with no significant stenosis. No aneurysm. Left middle cerebral artery: Mild left middle cerebral artery atherosclerosis. No proximal occlusion or high-grade stenosis. The left MCA bifurcation is more proximal than usual. Left anterior cerebral artery: The left VITO demonstrates mild to moderate atherosclerosis. No proximal occlusion or high-grade stenosis. POSTERIOR CIRCULATION: Right vertebral artery: The right vertebral artery is developmentally hypoplastic, patent. Left vertebral artery: The left vertebral artery is dominant. Calcified atherosclerosis does not contribute to significant stenosis. Basilar artery: No occlusion or significant stenosis. No aneurysm. Right posterior cerebral artery: No occlusion or significant stenosis. No aneurysm. Left posterior cerebral artery: No occlusion or significant stenosis. No aneurysm. Brain: No definite mass, mass effect, or midline shift. Cerebral ventricles: Enlarged in keeping with volume loss. Bones/joints: Unremarkable. No acute fracture. Soft tissues: Unremarkable. IMPRESSION: No proximal intracranial arterial occlusion seen.
--- NOTE | 2024-06-28 17:03 | XR_ITS ---
PROCEDURE INFORMATION: Exam: XR Chest Exam date and time: 06/28/2024 5:18 PM Age: 49 years old Clinical indication: Other: Stroke; Additional info: Stroke. Slurring words and left side face droop along with lue weakness, PT has HX of TIA TECHNIQUE: Imaging protocol: Radiologic exam of the chest. Views: 1 view. COMPARISON: CT ANGIO CHEST PE PROTOCOL 10/09/2023 5:54 PM FINDINGS: Lungs: Unremarkable. No consolidation. Pleural spaces: Unremarkable. No pleural effusion. No pneumothorax. Heart/Mediastinum: Unremarkable. No cardiomegaly. Bones/joints: Unremarkable. IMPRESSION: No evidence of acute cardiopulmonary disease.
--- NOTE | 2024-06-28 17:03 | CT_ITS ---
PROCEDURE INFORMATION: Exam: CT Head Without Contrast Exam date and time: 06/28/2024 5:07 PM Age: 49 years old Clinical indication: Stroke-like symptoms; Speech disturbance; Left facial droop; Additional info: Possible stroke. Slurring words and left side face droop along with lue weakness, PT has HX of TIA TECHNIQUE: Imaging protocol: Computed tomography of the head without contrast. Radiation optimization: All CT scans at this facility use at least one of these dose optimization techniques: automated exposure control; mA and/or kV adjustment per patient size (includes targeted exams where dose is matched to clinical indication); or iterative reconstruction. Other technique: STROKE PROTOCOL was implemented. COMPARISON: CT ANGIO HEAD 10/09/2023 5:50 PM FINDINGS: Brain: A chronic appearing left basal ganglia lacunar infarct, as seen before. A chronic right thalamic lacunar infarct is again demonstrated. No hemorrhage or recent evolving transcortical infarct identified. Hypodensities in the white matter likely represent marked chronic small vessel ischemic change. Cerebral ventricles: The ventricles are enlarged in keeping with central volume loss. Paranasal sinuses: Mild mucosal thickening in the right maxillary sinus. No fluid levels. Mastoid air cells: Visualized mastoid air cells are well aerated. Bones: Unremarkable. No acute fracture. Soft tissues: Unremarkable. IMPRESSION: No acute intracranial abnormality seen. ASSESSMENT: ASPECTS ([place] Stroke Program Early CT Score) is 10.
--- NOTE | 2024-06-28 17:10 | HMH.EDGENADL ---
Discharge Plan Disposition Patient Disposition: Admitted Clinical Impressions Clinical Impression: TIA (transient ischemic attack), Dysarthria Discharge ED Provider: Tra Mahoney General Adult HPI General Chief complaint: Neuro Symptoms/Deficit Stated complaint: Stroke Time Seen by Provider: 06/28/24 17:02 Mode of Arrival: Ambulatory Source of Information: Patient and EMS Limitations: No Limitations History of Present Illness HPI narrative: This is a 49-year-old female with a history of CVA with some dysarthria, bipolar disorder, anxiety, uncontrolled hypertension, non medically complaint who presents with concern for stroke. Last known normal 45 minutes prior to arrival. States that family noticed left-sided facial droop and slurred speech. Also reported left upper extremity weakness. Called EMS for transport. Glucose of 115. Hypertensive but otherwise stable. States that symptoms have improved since they picked her up. Patient states that she has a history of TIAs in the past. States that she does not take any daily medications. Related Data Home Medications ?Medication ?Instructions ?Recorded ?Confirmed No Known Home Medications 06/28/24 06/28/24 Allergies Allergy/AdvReac Type Severity Reaction Status Date / Time No Known Allergies Allergy Verified 10/01/23 10:00 [facility] Disclaimer: The information contained in this section may have been updated after the patient was seen, as this information can be updated by other users. Medical History CVA (cerebral vascular accident) Bipolar 1 disorder Hypertension Hyperlipidemia Anxiety Social History Smoking Status: Current every day smoker tobacco type: cigarettes packs per day: 0 second hand exposure: Yes alcohol intake: never substance use type: denies use current occupational status: unemployed Travel in the last 8 weeks?: None household members: spouse housing: house current occupational exposures/hazards: No caffeine: No Have you lived/traveled outside US in past 30 days?: No Contact w/someone who lives/traveled outside US past 30 days?: No Exposure to someone with infectious disease in past 14 days?: No Do you have a fever (greater than 100.4 F or 38 C)?: No Have you tested positive for COVID-19?: No Exposed to someone with COVID-19 in past 14 days?: No Do you have a sore throat?: No Do you have a cough?: No Do you have any weakness?: No Do you have any diarrhea?: No Are you experiencing any unusual bleeding?: No Do you have any muscle aches/pain?: No Do you have any abdominal pain?: No Are you experiencing loss of taste or smell?: No Other Medical History Have you received the Flu Vaccine for this season: No Have you received the Pneumonia Vaccine: No ROS Obtained: Yes All systems reviewed & no additional complaints except as documented Physical Exam General General appearance: alert and in no apparent distress Head Head exam: atraumatic Eye Eye exam: Present normal appearance, PERRL and EOMI Neck Neck exam: Present normal inspection and full ROM Chest Chest inspection: Present symmetric chest wall rise Respiratory Respiratory exam: Present normal lung sounds bilaterally; Absent respiratory distress Cardiovascular Cardiovascular exam: Present regular rate and normal rhythm Abdominal Exam Abdominal exam: Present soft; Absent distention Extremities Exam Extremities exam: Present normal inspection Neurological Exam Neurological exam: Present alert and oriented X3; Absent CN II-XII intact (Slight flattening of the left nasolabial fold. Mild dysarthria present. NIH 2.) Psychiatric Psychiatric exam: Present normal affect and normal mood Skin Skin exam: Present warm and dry Medical Decision Making Medical Records Medical records reviewed: Yes I reviewed the patient's medical records. Screening: Per USPSTF and CDC recommendations, given the prevalence of disease in our region, it is our hospital?s policy to screen for HIV and viral Hepatitis for all patients aged 18 and over and those with ongoing risk factors. MR Comment: Hospital medicine discharge summary from 10/28/2023 notable for patient's past medical history as noted above [place] Inquiry Pt receiving controlled substance: No Vital Signs: 06/28/24 17:10 06/28/24 17:31 06/28/24 18:01 Temperature 97.8 F Temperature Source Oral Pulse Rate 79 Pulse Rate [Left Radial] 88 Respiratory Rate 20 20 19 Blood Pressure 170/95 H 172/95 H Blood Pressure [Right Arm] 210/108 H Blood Pressure Mean 120 Blood Pressure Mean [Right Arm] 142 Blood Pressure Source [Right Arm] Manual Cuff/ Auscultation 02 Sat by Pulse Oximetry 96 92 L 98 Oxygen Delivery Method Room Air Room Air 06/28/24 18:10 06/28/24 18:20 06/28/24 18:30 Temperature 97.9 F Temperature Source Pulse Rate 80 74 Pulse Rate [Left Radial] Respiratory Rate 20 19 Blood Pressure 172/95 H 199/107 H Blood Pressure [Right Arm] Blood Pressure Mean Blood Pressure Mean [Right Arm] Blood Pressure Source [Right Arm] 02 Sat by Pulse Oximetry 99 Oxygen Delivery Method Room Air Room Air Room Air Lab Data Lab Results 06/28/24 16:58: WBC 7.6, RBC 4.77, Hgb 13.5, Hct 40.3, MCV 84.5, MCH 28.3, MCHC 33.5, RDW 13.0, Plt Count 299, MPV 10.8 H, Neut % (Auto) 49.9, Lymph % (Auto) 35.5, [place] % (Auto) 7.1, Eos % (Auto) 6.7, Baso % (Auto) 0.5, Neut # (Auto) 3.8, Lymph # (Auto) 2.7, [place] # (Auto) 0.5, Eos # (Auto) 0.5 H, Baso # (Auto) 0.0, PT 10.3, INR 0.91, APTT 26.4, Sodium 141, Potassium 3.6, Chloride 105, Carbon Dioxide 29, Anion Gap 10.6, BUN 7, Creatinine 1.00, Estimated Creat Clear 88, Estimated GFR 59, Est GFR ( Amer) 71, Glucose 113 H, Calcium 9.9, Total Bilirubin 0.5, AST 30, ALT 27, Alkaline Phosphatase 66, Troponin I 0.01, Total Protein 7.7, Albumin 4.3, Globulin 3.4 H, Albumin/Globulin Ratio 1.3, Triglycerides 122, Cholesterol 231 H, LDL Cholesterol Direct 138.00 H, VLDL Cholesterol 24, HDL Cholesterol 50, Cholesterol/HDL Ratio 4.6 H, Serum HCG, Qual Negative, Plasma/Serum Alcohol < 10 06/28/24 16:58 06/28/24 16:58 Orders (Tests/Meds): ED MEDICATIONS Generic Name Dose Route Start Last Admin Trade Name Freq PRN Reason Stop Dose Admin Acetaminophen 650 mg 06/28/24 18:28 Acetaminophen 325mg Tab PO 07/28/24 18:27 Q4HP PRN Fever or Mild Pain (1-3) Enoxaparin Sodium 40 mg 06/29/24 09:00 Enoxaparin 40mg/0.4ml Syringe SUBCUT 07/29/24 08:59 DAILY KEI Hydralazine HCl 10 mg 06/28/24 20:44 Hydralazine 20mg/Ml Vial IV 07/28/24 19:51 Q4HP PRN SBP > 220 or DBP > 120 Ondansetron HCl 4 mg 06/28/24 18:28 Ondansetron 4mg/2ml Vial IV 07/28/24 18:27 Q6HP PRN Nausea Sodium Chloride 10 ml 06/28/24 17:03 Sodium Chloride 0.9% 10ml Flush Syringe IV 07/28/24 17:02 NEEDED PRN Maintain IV Site Discontinued Medications Generic Name Dose Route Start Last Admin Trade Name Freq PRN Reason Stop Dose Admin Hydralazine HCl 10 mg 06/28/24 19:52 Hydralazine 20mg/Ml Vial IV 07/28/24 19:51 Q4HP PRN SBP > 220 or DBP > 110 Iopamidol 80 ml 06/28/24 17:19 06/28/24 17:20 Iopamidol-370 (76%);100ml Bottle IV 06/28/24 17:20 80 ml ONCE ONE Administration Sodium Chloride 10 ml 06/28/24 17:19 06/28/24 17:20 Sodium Chloride 0.9% 10ml Syr (Rad Only) IV 06/28/24 17:20 10 ml ONCE ONE Administration Sodium Chloride 50 ml 06/28/24 17:19 06/28/24 17:20 0.9 % Sodium Chloride 50 Ml Vial IV 06/28/24 17:20 50 ml ONCE ONE Administration ORDERS Category Date Time Status CT angio head Stat Cat Scan 06/28/24 17:[address] angio neck Stat Cat Scan 06/28/24 17:[address] head/brain wo con Stat Cat Scan 06/28/24 17:03 Completed CA echo w/ bubbles Routine Exams 06/28/24 18:28 Ordered XR chest portable Stat Exams 06/28/24 17:03 Completed Activated Partial Thrombo Time Stat Lab 06/28/24 16:58 Completed Beta HCG, Qual [HCG Qualitative, Serum] Routine Lab 06/28/24 16:58 Completed Complete Blood Count Auto Diff AMLAB Lab 06/29/24 06:00 Ordered Complete Blood Count Auto Diff AMLAB Lab 06/30/24 06:00 Ordered Complete Blood Count Auto Diff AMLAB Lab 07/01/24 06:00 Ordered Complete Blood Count Auto Diff AMLAB Lab 07/02/24 06:00 Ordered Complete Blood Count Auto Diff AMLAB Lab 07/03/24 06:00 Ordered Complete Blood Count Auto Diff Stat Lab 06/28/24 16:58 Completed Comprehensive Metabolic Panel AMLAB Lab 06/29/24 06:00 Ordered Comprehensive Metabolic Panel AMLAB Lab 06/30/24 06:00 Ordered Comprehensive Metabolic Panel AMLAB Lab 07/01/24 06:00 Ordered Comprehensive Metabolic Panel AMLAB Lab 07/02/24 06:00 Ordered Comprehensive Metabolic Panel AMLAB Lab 07/03/24 06:00 Ordered Comprehensive Metabolic Panel Stat Lab 06/28/24 16:58 Completed Drug Screen,Urine Stat Lab 06/28/24 17:03 Ordered Ethyl Alcohol Stat Lab 06/28/24 16:58 Completed Lipid Panel Stat Lab 06/28/24 16:58 Completed Magnesium AMLAB Lab 06/29/24 06:00 Ordered Magnesium AMLAB Lab 06/30/24 06:00 Ordered Magnesium AMLAB Lab 07/01/24 06:00 Ordered Magnesium AMLAB Lab 07/02/24 06:00 Ordered Magnesium AMLAB Lab 07/03/24 06:00 Ordered Prothrombin Time INR Stat Lab 06/28/24 16:58 Completed Troponin I Q3H Lab 06/28/24 20:14 Completed Troponin I Q3H Lab 06/28/24 23:15 Ordered Troponin I Stat Lab 06/28/24 16:58 Completed Urinalysis and Microscopic Stat Lab 06/28/24 17:03 Ordered ECG Request Stat Y 06/28/24 17:03 Ordered ECG Data Tracing #1: I reviewed this ECG and interpreted as documented below: Normal sinus rhythm at a rate of 84, QTc 447, normal axis, no STEMI Medical Decision Narrative: In summary, this is a 49-year-old female w/ Hx CVA with some dysarthria, bipolar disorder, anxiety, uncontrolled hypertension, non medically complaint presents to the emergency department today with concern for stroke. Last known normal to 45 minutes prior to arrival. On initial evaluation patient is afebrile, he medically stable, nontoxic-appearing, NIH of 2. Differential diagnosis includes but is not limited to stroke, TIA, Andre's palsy, hypoglycemia, electrolyte abnormality, arrhythmia. Based on these concerns, I ordered CBC, CMP, troponin, EKG, chest x-ray, CTA of the head/neck, CT head, coagulation studies. I independently interpreted her CT imaging revealing of no acute intracranial pathology or large vessel occlusion. ECG personally interpreted as noted above. Labs personally reviewed demonstrate unremarkable CBC, normal INR, unremarkable CMP. Glucose of 113. Barely detectable troponin at 0.01. XR personally interpreted demonstrates no acute cardiopulmonary pathology. On reassessment patient symptoms had completely resolved. Family was at bedside to confirm. ABCD score 5. Consulted hospital medicine for admission the patient was ultimately admitted for TIA management and workup. Critical Care Critical Care Time Critical Care Time: Yes Attestation: On 06/28/24, the high probability of a clinically significant, sudden or life threatening deterioration of the following system(s) required my full and direct attention, intervention and personal management. The time I documented below is in addition to time spent performing reported procedures but includes the following listed in this critical care notation. Total Time Total Critical Care Time: 40
[2024-06-28 17:11] LABS: Basophils % 0.5 % (0.1-2.0); Eosinophils # 0.5 Kmm3 (0.0-0.4); Eosinophils % 6.7 % (0.1-12.0); Hematocrit 40.3 % (37.0-47.0); Hemoglobin 13.5 g/dL (12.2-16.2); Lymphocytes # 2.7 K/mm3 (0.7-4.5); Lymphocytes % 35.5 % (10-50); Mean Corpuscular HGB Conc 33.5 g/dL (31.8-35.4); Mean Corpuscular Hemoglobin 28.3 pg (27.0-31.2); Mean Corpuscular Volume 84.5 fl (81-99); Mean Platelet Volume 10.8 fl (7.4-10.4); Monocytes # 0.5 K/mm3 (0.1-1.0); Monocytes % 7.1 % (1.7-9.3); Neutrophils # 3.8 K/mm3 (1.8-7.8); Neutrophils % 49.9 % (37.0-80.0); Nucleated Red Blood Cells # 0 10^3/uL; Nucleated Red Blood Cells % 0 %; Platelet Count 299 K/mm3 (142-424); Red Blood Count 4.77 M/mm3 (4.20-5.40); Red Cell Distribution Width-SD 39.8 fL; White Blood Count 7.6 K/mm3 (4.8-10.8)
[2024-06-28 17:16] LABS: Albumin Level 4.3 g/dl (3.5-5.0); Chloride 105 mmol/L (98-107); Potassium 3.6 mmoL/L (3.5-5.1); Sodium 141 mmol/L (136-145)
[2024-06-28 17:19] LABS: Alanine Aminotransferase 27 U/L (12-78); Albumin/Globulin Ratio 1.3 (1.1-1.8); Alkaline Phosphatase 66 U/L (38-126); Anion Gap 10.6 mEq/L (5-15); Aspartate Amino Transferase 30 U/L (14-36); Bilirubin,Total 0.5 mg/dl (0.2-1.3); Blood Urea Nitrogen 7 mg/dl (7-17); Calcium 9.9 mg/dl (8.4-10.2); Carbon Dioxide 29 mmol/L (22.0-30.0); Cholesterol 231 mg/dl (140-200); Creatinine Clearance Estimated 88 mL/min (50-200); Estimated Glomerular Filt Rate 59 ml/min (>60); GFR (African American) 71 ML/MIN (>60); Globulin 3.4 g/dL (1.3-3.2); Glucose 113 mg/dl (74-100); Total Protein,Serum 7.7 g/dl (6.3-8.2); Triglycerides 122 mg/dl (30-150); VLDL Cholesterol 24 mg/dL (0-40)
[2024-06-28 17:20] LABS: Activated Partial Thrombo Time 26.4 seconds (22.8-30.6); Chol/HDL Ratio 4.6 (1-3.5); HDL Cholesterol 50 mg/dl (40-60); INR 0.91 (0.9-1.1); Prothrombin Time 10.3 seconds (10.1-12.5)
[2024-06-28] MEDS: IOPAMIDOL-370 (76%);100ML BOTTLE 80 ML IV (17:20)
[2024-06-28] MEDS: 0.9 % SODIUM CHLORIDE 50 ML VIAL IV (17:20)
[2024-06-28] MEDS: SODIUM CHLORIDE 0.9% 10ML SYR (RAD ONLY) 10 ML IV (17:20)
[2024-06-28 17:24] LABS: Ethyl Alcohol < 10 mg/dl (0-10)
[2024-06-28 17:37] LABS: Troponin I 0.01 ng/ml (0.00-0.034)
--- NOTE | 2024-06-28 18:32 | EXP.HP ---
History of Present Illness *Admission Date: 06/29/24 *Reason for visit:: Feeling weird , slurred speech *History of present illness: Yanelis Mehta is a 49-year-old female with a medical history significant for CVA with right sided facial deficits, slurred speech who presents with a few hour onset of feeling weird , slurred speech, right arm weakness. Patient states she went to bed around 10 AM and woke up at 4 PM feeling weird , worsened slurred speech, and right upper extremity weakness. When asked to describe this weird feeling, she is not able to. Denies blurry vision, chest pain, shortness of breath, fever/chills. Patient states she had a stroke about a year ago that left her with slurred speech, right-sided facial deficits but refuses to take any medications including aspirin. When asked why, she states she does not like medications but was open to after our discussion. EMS also noticed slurred speech, right arm weakness that resolved on arrival. CT head, CTA head/neck did not show acute findings. Patient did have chronic right-sided facial droop, and slurred speech. Blood pressure elevated on arrival SBP 180s. Will allow permissive hypertension for 24 hours. Case discussed with ED provider and decision was made to admit patient for CVA workup. [facility] Disclaimer: The information contained in this section may have been updated after the patient was seen, as this information can be updated by other users. Medical History CVA (cerebral vascular accident) Bipolar 1 disorder Hypertension Hyperlipidemia Anxiety Social History Smoking Status: Current every day smoker tobacco type: cigarettes packs per day: 0 second hand exposure: Yes alcohol intake: never substance use type: denies use current occupational status: unemployed Travel in the last 8 weeks?: None household members: spouse housing: house current occupational exposures/hazards: No caffeine: No Have you lived/traveled outside US in past 30 days?: No Contact w/someone who lives/traveled outside US past 30 days?: No Exposure to someone with infectious disease in past 14 days?: No Do you have a fever (greater than 100.4 F or 38 C)?: No Have you tested positive for COVID-19?: No Exposed to someone with COVID-19 in past 14 days?: No Do you have a sore throat?: No Do you have a cough?: No Do you have any weakness?: No Do you have any diarrhea?: No Are you experiencing any unusual bleeding?: No Do you have any muscle aches/pain?: No Do you have any abdominal pain?: No Are you experiencing loss of taste or smell?: No Other Medical History Have you received the Flu Vaccine for this season: No Have you received the Pneumonia Vaccine: No Meds Home Medications and Allergies Home Medications ?Medication ?Instructions ?Recorded ?Confirmed ?Type No Known Home Medications 06/28/24 06/28/24 History New Prescriptions to Start Prescriptions: Allergies Allergy/AdvReac Type Severity Reaction Status Date / Time No Known Allergies Allergy Verified 10/01/23 10:00 Exam Data for Last 24 hours Vital signs and Labs for Last 24 Hours: Temp Pulse Resp BP Pulse Ox O2 Del Method 97.9 F 80 20 172/95 H 92 L Room Air 06/28/24 18:20 06/28/24 18:20 06/28/24 18:20 06/28/24 18:20 06/28/24 17:31 06/28/24 18:20 Laboratory Results - last 24 hr 06/28/24 16:58: WBC 7.6, RBC 4.77, Hgb 13.5, Hct 40.3, MCV 84.5, MCH 28.3, MCHC 33.5, RDW 13.0, Plt Count 299, MPV 10.8 H, Neut % (Auto) 49.9, Lymph % (Auto) 35.5, [place] % (Auto) 7.1, Eos % (Auto) 6.7, Baso % (Auto) 0.5, Neut # (Auto) 3.8, Lymph # (Auto) 2.7, [place] # (Auto) 0.5, Eos # (Auto) 0.5 H, Baso # (Auto) 0.0, PT 10.3, INR 0.91, APTT 26.4, Sodium 141, Potassium 3.6, Chloride 105, Carbon Dioxide 29, Anion Gap 10.6, BUN 7, Creatinine 1.00, Estimated Creat Clear 88, Estimated GFR 59, Est GFR ( Amer) 71, Glucose 113 H, Calcium 9.9, Total Bilirubin 0.5, AST 30, ALT 27, Alkaline Phosphatase 66, Troponin I 0.01, Total Protein 7.7, Albumin 4.3, Globulin 3.4 H, Albumin/Globulin Ratio 1.3, Triglycerides 122, Cholesterol 231 H, LDL Cholesterol Direct 138.00 H, VLDL Cholesterol 24, HDL Cholesterol 50, Cholesterol/HDL Ratio 4.6 H, Plasma/Serum Alcohol < 10 I & O for Last 24 hours: Intake & Output 06/25/24 06/26/24 06/27/24 06/28/24 23:59 23:59 23:59 23:59 Weight 81.647 kg Constitutional Constitutional: no acute distress *Routine HEENT Exam Head: Present normocephalic Eye: Present EOMI and PERRL ENT: Present mucous membranes moist *Routine Neck Exam Neck: Present supple; Absent lymphadenopathy *Routine Respiratory Exam Respiratory: Present CTA bilaterally *Routine Cardiovascular Exam Cardiovascular: Present RRR *Routine Abdominal Exam Abdominal: Present soft and normoactive bowel sounds; Absent tenderness *Routine Rectal Exam Rectal:: deferred *Routine Genitalia Exam Genitalia:: deferred *Routine Extremities Exam Extremities: Absent cyanosis, clubbing or edema *Routine Skin Exam Skin: Present warm; Absent rash *Routine Neurological Exam Neurological: Present alert Comments: Right-sided facial droop, chronic. Assessment and Plan *Assessment and plan (1) TIA (transient ischemic attack): Status: Acute Category: Medical Code(s): G45.9 - Transient cerebral ischemic attack, unspecified (2) CVA (cerebral vascular accident): Status: Chronic Qualifiers: CVA mechanism: unspecified Qualified Code(s): I63.9 - Cerebral infarction, unspecified Category: Medical Code(s): I63.9 - Cerebral infarction, unspecified Plan Yanelis Mehta is a 49-year-old female with a medical history significant for CVA with right sided facial deficits, slurred speech who presents with a few hour onset of feeling weird , slurred speech, right arm weakness. Patient states she went to bed around 10 AM and woke up at 4 PM feeling weird , worsened slurred speech, and right upper extremity weakness. When asked to describe this weird feeling, she is not able to. Denies blurry vision, chest pain, shortness of breath, fever/chills. Patient states she had a stroke about a year ago that left her with slurred speech, right-sided facial deficits but refuses to take any medications including aspirin. When asked why, she states she does not like medications but was open to after our discussion. EMS also noticed slurred speech, right arm weakness that resolved on arrival. CT head, CTA head/neck did not show acute findings. Patient did have chronic right-sided facial droop, and slurred speech. Blood pressure elevated on arrival SBP 180s. Will allow permissive hypertension for 24 hours from last known normal of 10 AM. Case discussed with ED provider and decision was made to admit patient for CVA workup. #Suspected TIA #History of CVA #Chronic right-sided facial droop, slurred speech #Hyperlipidemia #Hypertension ? Presented with acute worsening of slurred speech, right extremity weakness that resolved on arrival. ? History of CVA, head CT on 08/03/2023 showed old bilateral basal ganglia lacunar infarcts, and infarct in left centrum semiovale. Also showed chronic ischemic changes that is more advanced for age. ? Patient nonadherent to medications, including antihypertensives. Blood pressure seems to be a strong risk factor. Will allow for permissive hypertension in the acute setting of TIA. ? LDL 138, TSH normal. Follow-up A1c. ? Follow-up brain MRI in the morning. ? Follow-up ECHO. ? Permissive hypertension < 220/120 until 10 AM tomorrow, 24 hours after last known normal. ? Aspirin 81 mg, Plavix 75 mg, atorvastatin 40 mg. ABCD2 score 5. Will need DAPT for at least 21 days. #Suspected mood disorder #Suspected cognitive impairment ? Patient has a flat affect, often looking away when speaking. States she does not believe in medications. Microvascular changes out of proportion to age on CT. ? Would benefit from psych referral, though highly suspect patient will not follow-up. Full code DVT prophylaxis: Lovenox 40 mg
--- NOTE | 2024-06-28 18:52 | PC.NURSE ---
arrived by w/c from ED
[2024-06-28 18:56] LABS: HCG Qualitative, Serum Negative (Negative)
--- NOTE | 2024-06-28 19:24 | PC.NURSE ---
Upon shift report, Nightshift nurse was given report that pt had an original bp of 210/108. No treatment was given in the ED. Pt was admitted to med surg floor at 1823 per v/s charting. Pt still has no orders for treatment @ 1929. NIH scale of 2. Hospitalist was immediately called by [email or web address] twice, no answer. Charge nurse notified. Plan of care to be followed.
--- NOTE | 2024-06-28 20:20 | PC.NURSE ---
Pt states she has medication thats shes been prescribed but does not take them at all. Pt states she hasn't taken any meds for the last year. Med rec completed per pt
[2024-06-28 21:14] LABS: Troponin I < 0.01 ng/ml (0.00-0.034)
[2024-06-28 23:40] LABS: Troponin I < 0.01 ng/ml (0.00-0.034)
[2024-06-29] VITALS: BP 198/110; PULSE 103; PULSE 70; RESP 16; TEMP 36.6; O2SAT 99
[2024-06-29 04:00] VITALS: BP 199/115; PULSE 70; PULSE 73; RESP 16; TEMP 36.7; O2SAT 95; BMI 31.4
--- NOTE | 2024-06-29 06:19 | PC.NURSE ---
New Admit. v/s, ox4, family at bedside. Provider was called for plan of care, See orders. Pt states she had a stroke 1 year ago and that her facial droop is baseline from that time. Pt has good equal strength in all extremities upon assessment. Plan of care ongoing.
[2024-06-29 06:32] LABS: Chloride 107 mmol/L (98-107)
[2024-06-29 06:33] LABS: Albumin Level 4.2 g/dl (3.5-5.0); Basophils # 0.1 K/mm3 (0-0.2); Basophils % 0.9 % (0.1-2.0); Eosinophils # 0.4 Kmm3 (0.0-0.4); Eosinophils % 4.5 % (0.1-12.0); Hematocrit 38.9 % (37.0-47.0); Hemoglobin 13.1 g/dL (12.2-16.2); Lymphocytes # 3.6 K/mm3 (0.7-4.5); Lymphocytes % 38.7 % (10-50); Mean Corpuscular HGB Conc 33.7 g/dL (31.8-35.4); Mean Corpuscular Hemoglobin 28.6 pg (27.0-31.2); Mean Corpuscular Volume 84.9 fl (81-99); Mean Platelet Volume 11.8 fl (7.4-10.4); Monocytes # 0.7 K/mm3 (0.1-1.0); Monocytes % 7.1 % (1.7-9.3); Neutrophils # 4.5 K/mm3 (1.8-7.8); Neutrophils % 48.6 % (37.0-80.0); Nucleated Red Blood Cells # 0 10^3/uL; Nucleated Red Blood Cells % 0 %; Platelet Count 253 K/mm3 (142-424); Potassium 3.5 mmoL/L (3.5-5.1); Red Blood Count 4.58 M/mm3 (4.20-5.40); Red Cell Distribution Width 12.9 % (11.5-17.5); Red Cell Distribution Width-SD 39.6 fL; Sodium 140 mmol/L (136-145); White Blood Count 9.3 K/mm3 (4.8-10.8)
[2024-06-29 06:35] LABS: Blood Urea Nitrogen 7 mg/dl (7-17); Creatinine Clearance Estimated 102 mL/min (50-200); Estimated Glomerular Filt Rate 67 ml/min (>60); GFR (African American) 81 ML/MIN (>60)
[2024-06-29 06:36] LABS: Alanine Aminotransferase 23 U/L (12-78); Albumin/Globulin Ratio 1.4 (1.1-1.8); Alkaline Phosphatase 73 U/L (38-126); Anion Gap 9.5 mEq/L (5-15); Aspartate Amino Transferase 29 U/L (14-36); Bilirubin,Total 0.5 mg/dl (0.2-1.3); Calcium 9.8 mg/dl (8.4-10.2); Carbon Dioxide 27 mmol/L (22.0-30.0); Globulin 3.1 g/dL (1.3-3.2); Glucose 101 mg/dl (74-100); Magnesium 1.8 mg/dl (1.6-2.3); Total Protein,Serum 7.3 g/dl (6.3-8.2)
--- NOTE | 2024-06-29 07:00 | MR_ITS ---
FINAL REPORT CLINICAL HISTORY: CVA workup, history of CVA with right-sided weaknees FINDINGS: Multi planar MR imaging was obtained through the brain without contrast. The midline structures appear intact. There is a small focus of abnormal signal in the superior wil likely due to old infarct. Extensive, confluent abnormal signal seen throughout the deep white matter bilaterally and wil. There is mild T2 shine through noted. There is no evidence of Chiari malformation. On T2 and flair axial images the brain parenchyma is homogeneous. On diffusion-weighted images there is no evidence of restricted diffusion. The visualized paranasal sinuses demonstrate normal signal voids. The seventh and eighth nerve root complexes are intact. IMPRESSION: Extensive changes of chronic microvascular ischemia. No acute intracranial abnormality. Reviewed, Interpreted and Dictated by Luís Manuel MD Transcribed by Betsy Feliciano Authenticated and . [facility]
[2024-06-29 07:09] LABS: Microscopic, Urine URINE MICROSCOPIC (MICROSCOPIC)
[2024-06-29 07:30] LABS: Benzodiazepines Screen,Urine Negative ng/ml (<200)
[2024-06-29 07:31] LABS: Barbiturates Screen,Urine Negative ng/ml (<200); Methadone Screen,Urine Negative ng/ml (<300)
[2024-06-29 07:32] LABS: Cannabinoid Screen,Urine Positive ng/ml (<50)
[2024-06-29 07:33] LABS: Cocaine Screen,Urine Negative ng/ml (<300)
[2024-06-29 07:34] LABS: Opiate Screen,Urine Negative ng/ml (<300); Phencyclidine Screen,Urine Negative ng/ml (<25)
[2024-06-29 07:38] LABS: Appearance,Urine CLEAR (Clear); Bilirubin,Urine Negative (Negative); Blood, Urine Negative (Negative); Color,Urine YELLOW (Yellow); Glucose,Urine (UA) Negative (Negative); Ketones,Urine Negative (Negative); Leukocyte Esterase,Urine Negative (Negative); Nitrate,Urine Negative (Negative); Protein,Urine 1+ (Negative); Specific Gravity, Urine 1.025 (1.005-1.030)
--- NOTE | 2024-06-29 07:46 | EXP.DC.SUM ---
General Admission date:: 06/28/24 Discharge date: 06/29/24 HPI HPI HPI: Yanelis Mehta is a 49-year-old female with a medical history significant for CVA with right sided facial deficits, slurred speech who presents with a few hour onset of feeling weird , slurred speech, right arm weakness. Patient states she went to bed around 10 AM and woke up at 4 PM feeling weird , worsened slurred speech, and right upper extremity weakness. When asked to describe this weird feeling, she is not able to. Denies blurry vision, chest pain, shortness of breath, fever/chills. Patient states she had a stroke about a year ago that left her with slurred speech, right-sided facial deficits but refuses to take any medications including aspirin. When asked why, she states she does not like medications but was open to after our discussion. EMS also noticed slurred speech, right arm weakness that resolved on arrival. CT head, CTA head/neck did not show acute findings. Patient did have chronic right-sided facial droop, and slurred speech. Blood pressure elevated on arrival SBP 180s. Will allow permissive hypertension for 24 hours. Case discussed with ED provider and decision was made to admit patient for CVA workup. Hospital Course Hospital Course Hospital Course: Yanelis Mehta is a 49-year-old female with a medical history significant for CVA with right sided facial deficits, slurred speech who presents with a few hour onset of feeling weird , slurred speech, right arm weakness. Patient states she went to bed around 10 AM and woke up at 4 PM feeling weird , worsened slurred speech, and right upper extremity weakness. When asked to describe this weird feeling, she is not able to. Denies blurry vision, chest pain, shortness of breath, fever/chills. Patient states she had a stroke about a year ago that left her with slurred speech, right-sided facial deficits but refuses to take any medications including aspirin. When asked why, she states she does not like medications but was open to after our discussion. EMS also noticed slurred speech, right arm weakness that resolved on arrival. CT head, CTA head/neck did not show acute findings. Patient did have chronic right-sided facial droop, and slurred speech. Blood pressure elevated on arrival SBP 180s. Will allow permissive hypertension for 24 hours from last known normal of 10 AM. Case discussed with ED provider and decision was made to admit patient for CVA workup. MRI obtained, no acute findings. Stable to DC home. Problems addressed as follows: #Suspected TIA #History of CVA #Chronic right-sided facial droop, slurred speech #Hyperlipidemia #Hypertension ? Presented with acute worsening of slurred speech, right extremity weakness that resolved on arrival. History of CVA, head CT on 08/03/2023 showed old bilateral basal ganglia lacunar infarcts, and infarct in left centrum semiovale. Also showed chronic ischemic changes that is more advanced for age. Patient nonadherent to medications, including antihypertensives. Blood pressure seems to be a strong risk factor. Will allow for permissive hypertension in the acute setting of TIA. LDL 138, TSH normal. A1c 5.3. UDS positive for THC. MRI obtained with no acute findings. Has extensive joelle-ventricular white matter changes. Echo with normal BiV function. Permissive hypertension < 220/120 until 10 AM tomorrow, 24 hours after last known normal. Improving with SBP <200. Morning SBP 160s. Initiate lisinopril 20mg daily at discharge to improve BP. Further management as an outpatient. Initiate goal directed management including Aspirin 81 mg, Plavix 75 mg, atorvastatin 40 mg. ABCD2 score 5. Will need DAPT for at least 21 days. #Suspected mood disorder #Suspected cognitive impairment ? Patient has a flat affect, often looking away when speaking. States she does not believe in medications. Microvascular changes out of proportion to age on CT. Would benefit from further psych eval as an outpatient. Recommend referral in outpt setting, defer to PCP. Total time spent on discharge 38 minutes in counseling, documentation, chart review, and direct care with patient. Exam Data for Last 24 hours Vital signs and Labs for Last 24 Hours: Temp Pulse Resp BP Pulse Ox O2 Del Method 98.0 F 73 16 199/115 H 95 Room Air 06/29/24 04:00 06/29/24 04:00 06/29/24 04:00 06/29/24 04:00 06/29/24 04:00 06/29/24 06:07 Laboratory Results - last 24 hr 06/28/24 07:00: Urine Opiates Screen Negative, Urine Methadone Screen Negative, Ur Barbituates Screen Negative, Ur Phencyclidine Scrn Negative, U Benzodiazepines Scrn Negative, Urine Cocaine Screen Negative, U Marijuana (THC) Screen Positive H 06/28/24 16:58: WBC 7.6, RBC 4.77, Hgb 13.5, Hct 40.3, MCV 84.5, MCH 28.3, MCHC 33.5, RDW 13.0, Plt Count 299, MPV 10.8 H, Neut % (Auto) 49.9, Lymph % (Auto) 35.5, Cassia % (Auto) 7.1, Eos % (Auto) 6.7, Baso % (Auto) 0.5, Neut # (Auto) 3.8, Lymph # (Auto) 2.7, Cassia # (Auto) 0.5, Eos # (Auto) 0.5 H, Baso # (Auto) 0.0, PT 10.3, INR 0.91, APTT 26.4, Sodium 141, Potassium 3.6, Chloride 105, Carbon Dioxide 29, Anion Gap 10.6, BUN 7, Creatinine 1.00, Estimated Creat Clear 88, Estimated GFR 59, Est GFR ( Amer) 71, Glucose 113 H, Calcium 9.9, Total Bilirubin 0.5, AST 30, ALT 27, Alkaline Phosphatase 66, Troponin I 0.01, Total Protein 7.7, Albumin 4.3, Globulin 3.4 H, Albumin/Globulin Ratio 1.3, Triglycerides 122, Cholesterol 231 H, LDL Cholesterol Direct 138.00 H, VLDL Cholesterol 24, HDL Cholesterol 50, Cholesterol/HDL Ratio 4.6 H, Serum HCG, Qual Negative, Plasma/Serum Alcohol < 10 06/28/24 20:14: Troponin I < 0.01 06/28/24 23:11: Troponin I < 0.01 06/29/24 05:19: WBC 9.3, RBC 4.58, Hgb 13.1, Hct 38.9, MCV 84.9, MCH 28.6, MCHC 33.7, RDW 12.9, Plt Count 253, MPV 11.8 H, Neut % (Auto) 48.6, Lymph % (Auto) 38.7, Cassia % (Auto) 7.1, Eos % (Auto) 4.5, Baso % (Auto) 0.9, Neut # (Auto) 4.5, Lymph # (Auto) 3.6, Cassia # (Auto) 0.7, Eos # (Auto) 0.4, Baso # (Auto) 0.1, Sodium 140, Potassium 3.5, Chloride 107, Carbon Dioxide 27, Anion Gap 9.5, BUN 7, Creatinine 0.90, Estimated Creat Clear 102, Estimated GFR 67, Est GFR ( Amer) 81, Glucose 101 H, Calcium 9.8, Magnesium 1.8, Total Bilirubin 0.5, AST 29, ALT 23, Alkaline Phosphatase 73, Total Protein 7.3, Albumin 4.2, Globulin 3.1, Albumin/Globulin Ratio 1.4 I & O for Last 24 hours: Intake & Output 06/26/24 06/27/24 06/28/24 06/29/24 23:59 23:59 23:59 23:59 Intake Total 240 / 240 Output Total 0 / 0 Balance 0 / 240 240 / 240 Weight 85.474 kg 85.411 kg Constitutional Constitutional: no acute distress, obese and chronically ill appearing *Routine HEENT Exam Head: Present normocephalic Eye: Present EOMI and PERRL ENT: Present mucous membranes moist *Routine Neck Exam Neck: Present supple; Absent lymphadenopathy *Routine Respiratory Exam Respiratory: Present CTA bilaterally; Absent rhonchi, wheezes or crackles *Routine Cardiovascular Exam Cardiovascular: Present RRR *Routine Abdominal Exam Abdominal: Present soft and normoactive bowel sounds; Absent tenderness *Routine Rectal Exam Patient deferred: visual exam *Routine Exam Patient deferred: external exam *Routine Extremities Exam Extremities: Absent cyanosis, clubbing or edema *Routine Skin Exam Skin: Present warm; Absent rash *Routine Neurological Exam Neurological: Present alert, oriented X3 and moving all extremities; Absent altered mental status Results Data Completed and Pending Labs on day of discharge: Labs from last 24 hours 06/29/24 06/28/24 06/28/24 05:19 23:11 20:14 WBC 9.3 RBC 4.58 Hgb 13.1 Hct 38.9 MCV 84.9 MCH 28.6 MCHC 33.7 RDW 12.9 Plt Count 253 MPV 11.8 H Neut % (Auto) 48.6 Lymph % (Auto) 38.7 Cassia % (Auto) 7.1 Eos % (Auto) 4.5 Baso % (Auto) 0.9 Neut # (Auto) 4.5 Lymph # (Auto) 3.6 Cassia # (Auto) 0.7 Eos # (Auto) 0.4 Baso # (Auto) 0.1 PT INR APTT Sodium 140 Potassium 3.5 Chloride 107 Carbon Dioxide 27 Anion Gap 9.5 BUN 7 Creatinine 0.90 Estimated Creat Clear 102 Estimated GFR 67 Est GFR ( Amer) 81 Glucose 101 H Calcium 9.8 Magnesium 1.8 Total Bilirubin 0.5 AST 29 ALT 23 Alkaline Phosphatase 73 Troponin I < 0.01 < 0.01 Total Protein 7.3 Albumin 4.2 Globulin 3.1 Albumin/Globulin Ratio 1.4 Triglycerides Cholesterol LDL Cholesterol Direct VLDL Cholesterol HDL Cholesterol Cholesterol/HDL Ratio Serum HCG, Qual Urine Opiates Screen Urine Methadone Screen Ur Barbituates Screen Ur Phencyclidine Scrn U Benzodiazepines Scrn Urine Cocaine Screen U Marijuana (THC) Screen Plasma/Serum Alcohol 06/28/24 06/28/24 16:58 07:00 WBC 7.6 RBC 4.77 Hgb 13.5 Hct 40.3 MCV 84.5 MCH 28.3 MCHC 33.5 RDW 13.0 Plt Count 299 MPV 10.8 H Neut % (Auto) 49.9 Lymph % (Auto) 35.5 Cassia % (Auto) 7.1 Eos % (Auto) 6.7 Baso % (Auto) 0.5 Neut # (Auto) 3.8 Lymph # (Auto) 2.7 Cassia # (Auto) 0.5 Eos # (Auto) 0.5 H Baso # (Auto) 0.0 PT 10.3 INR 0.91 APTT 26.4 Sodium 141 Potassium 3.6 Chloride 105 Carbon Dioxide 29 Anion Gap 10.6 BUN 7 Creatinine 1.00 Estimated Creat Clear 88 Estimated GFR 59 Est GFR ( Amer) 71 Glucose 113 H Calcium 9.9 Magnesium Total Bilirubin 0.5 AST 30 ALT 27 Alkaline Phosphatase 66 Troponin I 0.01 Total Protein 7.7 Albumin 4.3 Globulin 3.4 H Albumin/Globulin Ratio 1.3 Triglycerides 122 Cholesterol 231 H LDL Cholesterol Direct 138.00 H VLDL Cholesterol 24 HDL Cholesterol 50 Cholesterol/HDL Ratio 4.6 H Serum HCG, Qual Negative Urine Opiates Screen Negative Urine Methadone Screen Negative Ur Barbituates Screen Negative Ur Phencyclidine Scrn Negative U Benzodiazepines Scrn Negative Urine Cocaine Screen Negative U Marijuana (THC) Screen Positive H Plasma/Serum Alcohol < 10 DS: Diagnosis Discharge Diagnosis (1) TIA (transient ischemic attack): Status: Acute Code(s): G45.9 - Transient cerebral ischemic attack, unspecified (2) CVA (cerebral vascular accident): Status: Chronic Code(s): I63.9 - Cerebral infarction, unspecified Qualifiers: CVA mechanism: unspecified Qualified Code(s): I63.9 - Cerebral infarction, unspecified (3) Dysarthria: Status: Acute Code(s): R47.1 - Dysarthria and anarthria (4) Malignant hypertension: Status: Acute Code(s): I10 - Essential (primary) hypertension Meds Home Medications and Allergies Home Medications ?Medication ?Instructions ?Recorded ?Confirmed ?Type aspirin 81 mg tablet,delayed 81 mg PO DAILY 30 days #30 tabs 06/29/24 Rx release atorvastatin 40 mg tablet 40 mg PO HS 30 days #30 tabs 06/29/24 Rx clopidogrel 75 mg tablet 75 mg PO DAILY 27 days #27 tabs 06/29/24 Rx lisinopril 20 mg tablet 20 mg PO DAILY #30 tabs 06/29/24 Rx New Prescriptions to Start Prescriptions: aspirin Cristobal Duran James clopidogrel Roger,Cristobal lisinopril Cristobal Duran Allergies Allergy/AdvReac Type Severity Reaction Status Date / Time No Known Allergies Allergy Verified 10/01/23 10:00 Discharge Plan Disposition Patient Disposition: Home, Self-Care Condition: Fair Follow up Plan Follow up with: Nikky Avendano APRN [Nurse Practitioner] - 07/07/24 2:45 pm Tom Robert PT [Physical Therapist] - 07/12/24 8:00 am Prescriptions/Medication Reconciliation: New atorvastatin 40 mg Tablet 40 mg PO HS 30 Days Qty: 30 0RF clopidogrel 75 mg Tablet 75 mg PO DAILY 27 Days Qty: 27 0RF aspirin 81 mg Tablet,Delayed Release (Dr/Ec) 81 mg PO DAILY 30 Days Qty: 30 0RF lisinopril 20 mg tablet 20 mg PO DAILY Qty: 30 0RF Other Ambulatory Orders: Rehab Eval, OP (Routine) Timeframe: 3 Days Facility: [facility] - Location: Physical Therapy Ordered By: Cristobal Duran Problem Reconciliation Problems Reviewed?: Yes Patient Discharge Instructions ACTIVITY: Continue current activity DIET: continue same diet Patient Instructions: Transient Ischemic Attack, DI for Transient Ischemic Attack Print Language: German Providers Primary Care Provider: Provider,Referral Admit Provider: Hilton Anthony Attending Provider: Hilton Anthony
[2024-06-29 07:57] LABS: Hemoglobin A1C 5.3 % (4.0-6.0)
[2024-06-29 08:00] VITALS: BP 166/117; PULSE 70; PULSE 74; RESP 18; TEMP 36.6; O2SAT 98
[2024-06-29] MEDS: POTASSIUM CHLORIDE 20MEQ TAB 40 MEQ PO ×2 (08:07→11:45)
[2024-06-29] MEDS: ENOXAPARIN 40MG/0.4ML SYRINGE 40 MG SUBCUT (08:07)
[2024-06-29] MEDS: ASPIRIN EC 81MG TABLET 81 MG PO (08:07)
[2024-06-29] MEDS: CLOPIDOGREL 75MG TAB 75 MG PO (08:07)
[2024-06-29 09:26] LABS: Bacteria,Urine 1+ /lpf
--- NOTE | 2024-06-29 10:42 | HMH.PTEV ---
Physical Therapy Evaluation Rehab PT IP Evaluation Start: 06/29/24 07:17 Freq: ONCE Status: Active Protocol: Document 06/29/24 09:45 PEREZ (Rec: 06/29/24 10:42 PHODIPAK [id number]) Subjective/History History History Yanelis Mehta is a 49-year- old female with a medical history significant for CVA with right sided facial deficits, slurred speech who presents with a few hour onset of feeling weird , slurred speech, right arm weakness. Patient states she had a stroke about a year ago that left her with slurred speech, right-sided facial deficits but refuses to take any medications including aspirin. EMS also noticed slurred speech, right arm weakness that resolved on arrival. Pt was admitted for CVA workup with suspected TIA. Pt currently lives at home with her , and has ~15 steps to enter her home. Pt does not use an AD for ambulation. Subjective Subjective Pt presents resting supine in bed. She is alert and oriented x3 and is willing to participate with PT/OT this am . She presents with right sided weakness and facial deficits, which is at her stated baseline. Patient had a normal [id number] test bilaterally. Pt returned to bed with call light in reach. [facility] How much help from another person do you currently need... Turning from your back to your side None while in a flat bed without using bedrails? Moving from lying on back to sitting on None the side of a flat bed without using bedrails? Moving to and from a bed to a chair ( None including a wheelchair)? Standing up from a chair using your arms None ? (e.g., wheelchair, bedside chair) Walking in hospital room? None Climbing 3-5 steps with a railing? None Mobility Score 24 Mobility Level [facility] Mobility Calculator Mobility 8 Walk 250 feet or more Rehab PT IP Eval Objective Appearance Patient Behavior Appropriate,Cooperative Patient Orientation Person,Place,Time Difficulty following instructions none Speech Pattern Clear,Appropriate Ambulation Patient Able to Ambulate Yes Ambulation Observation IP General Gait Pattern Observation Wide Based Gait Ambulation Distance (feet) 20 Ambulation Ability Contact Guard/Hand Hold Balance Ability to Arise Able, w/o using arms Sitting Balance Steady, safe Standing Balance Steady, wide stance Dynamic Sitting Balance Ability Normal Dynamic Standing Balance Ability Normal Transfers Bed Transfer Ability Independent Sit to Stand Bed Transfer Ability Independent MMT RLE PT MMT ABN Abnormal MMT Grade Hip flexion 4/5, Knee extension 4/5, Knee flexion 4/ 5 LLE PT MMT WNL Rehab PT IP prob,goals,plan Problems Date of Evaluation: 06/29/24 Discharge Plan PT Discharge Plan Patient is currently most appropriate to return home once medically stable for d/c. Skilled acute therapy is not currently indicated is patient is near her baseline with all mobility. Home health or outpatient therapy is recommended to further strengthen right sided deficits from prior CVA. Eval Complexity Eval Charge Codes 22087 - High Complexity PHYSICIAN CERTIFICATION: I certify the specified therapy services for Yanelis Mehta are required, authorized, and reviewed every 30 days.
--- NOTE | 2024-06-29 11:23 | SW/DCPLANNER ---
Patient is agreeable to [facility] outpatient therapy services and will be scheduled prior to discharge.
[2024-06-29 11:41] VITALS: BP 198/118; PULSE 72; RESP 16; TEMP 36.6; O2SAT 97
--- NOTE | 2024-06-29 12:32 | PC.NURSE ---
PT AND SON HAVE CALLED OUT AND CAME UP TO STAFF APPROX. 8 TIMES SINCE 0700 ASKING ABOUT DISCHARGE. THIS RN AND MD HAVE EDUCATED PT ON THE NEED TO GET THE READ BACK ON THE BRAIN MRI BEFORE D/C.
--- NOTE | 2024-06-29 12:36 | HMH.OTEV ---
OT Inpatient Evaluation Rehab OT IP Evaluation Start: 06/29/24 07:16 Freq: ONCE Status: Active [facility]Rec: 06/29/24 12:36 [facility] [id number]) Rehab OT IP Assessment Subjective History Pt oriented x 3 on arrival. Pt agreeable to engage in therapy evaluation. Pt admitted on 06/29/24 due to slurred speech and possible TIA. History and physical: Yanelis Mehta is a 49-year-old female with a medical history significant for CVA with right sided facial deficits, slurred speech who presents with a few hour onset of feeling weird , slurred speech , right arm weakness. Patient states she went to bed around 10 AM and woke up at 4 PM feeling weird , worsened slurred speech, and right upper extremity weakness. When asked to describe this weird feeling, she is not able to. Denies blurry vision, chest pain, shortness of breath, fever/chills. Patient states she had a stroke about a year ago that left her with slurred speech, right-sided facial deficits but refuses to take any medications including aspirin. When asked why, she states she does not like medications but was open to after our discussion. EMS also noticed slurred speech, right arm weakness that resolved on arrival. CT head, CTA head/neck did not show acute findings. Patient did have chronic right-sided facial droop, and slurred speech. Blood pressure elevated on arrival SBP 180s. Will allow permissive hypertension for 24 hours. Case discussed with ED provider and decision was made to admit patient for CVA workup. Subjective Prior to being in the hospital , pt lived at home with her . Pt claims normally she is independent with all ADLs and IADLs. Pt does not require a walker or cane during functional transfers. Pt no longer drives. Pt normally has right sided weakness at baseline due to previous CVA. Objective Patient Orientation Person,Place,Birthday Right Upper Extremity Gross ROM Min Limitation <25% Left Upper Extremity Gross ROM WNL Shoulder ROM Limitations Muscle Weakness Elbow ROM Limitations Muscle Weakness Wrist Limitations of Range of Motion Muscle Weakness Bed Mobility bed mobility-scooting,bed mobility - supine/sit Assist Level Supervision/Stand by Transfer Training Sit/Stand Transfer Assist Level Contact Guard/Hand Hold Lower Body Dressing Ability Standby Assistance Rehab OT IP prob,goals,plan Problems Date of Evaluation: 06/29/24 Rehab Potential Rehab Potential Innapropriate for Skilled Therapy Discharge Plan OT Discharge Plan Pt appears to be at her baseline with functional transfers and ADL independence . Pt is most appropriate to discharge home once she is medically stable. Therapist recommends OT evaluation for environmental safety. Eval Complexity Eval Charge Codes 69629 - Moderate Complexity PHYSICIAN CERTIFICATION: I certify the specified therapy services for Yanelis Mehta are required, authorized, and reviewed every 30 days.
--- NOTE | 2024-06-29 18:28 | CA_ITS ---
APPROVED REPORT EXAM: Comprehensive 2D, Doppler, and color-flow Echocardiogram Senior Market Intelligence Consultant: Sadie Palacios CRT Ht: 5 ft 4 in Wt: 180lbs BSA: 1.87 BP: 199/107 mmHg Indications: TIA, FACIAL DROOP, SLURRED SPEECH, OLD CVA, BIPOLAR, NONCOMPLIANT B/S ORDERED Echo Enhancing Agent Indication: Rule out Shunt Agent(s) / Amount(s) Used: Agitated Saline 5 cc Comments: B/S ORDERED, APPEARS NEGATIVE Left Ventricle The left ventricle is normal size. The left ventricular systolic function is normal. The left ventricular ejection fraction is within the normal range. There is increased LV wall thickness. There is normal LV segmental wall motion. Transmitral Doppler flow pattern suggests impaired LV relaxation. LVEF is 60%. Right Ventricle The right ventricle is normal size. The right ventricular systolic function is normal. Atria The left atrium is moderately dilated. The right atrium size is normal. There is no Doppler evidence of interatrial shunt. Agitated saline administration demonstrates no evidence of interatrial shunt. Aortic Valve The aortic valve is mildly thickened. There is no aortic valvular stenosis. Mild aortic regurgitation. Mitral Valve The mitral valve leaflets are mildly thickened. No evidence of mitral valve stenosis. Moderate to severe mitral regurgitation is present. Tricuspid Valve The tricuspid valve leaflets are thin and pliable. Trace tricuspid regurgitation. There is insufficient TR jet to estimate RVSP. Pulmonic Valve The pulmonary valve is normal in structure. Trace pulmonic regurgitation. Great Vessels The aortic root is normal in size. IVC is normal in size and collapses >50% with inspiration. Pericardium There is no pericardial effusion. Other Information Study Quality: Fair Conclusion Normal biventricular systolic function (LVEF 60% in the setting of significant MR). LA dilation. Moderate to severe MR. Mild AI. There is no Doppler evidence of interatrial shunt. Agitated saline administration demonstrates no evidence of interatrial shunt. In the setting of significant MR, outpatient evaluation with SUZAN is suggested to evaluate for severity and mechanism of MR. Electronically signed by : Heather De Jesus MD 06/29/2024 11:48:26
--- NOTE | 2024-07-01 11:24 | SW/DCPLANNER ---
Phoned patient x2. Left voicemail with call back number and name. Earl HARMAN Media Professional
[2024-07-02 14:12] LABS: Amphetamine Positive (.); Amphetamine (GC/MS) >3000 ng/mL (Cutoff=500); Amphetamines Positive (.); Methamphetamine Positive (.); Methamphetamine (GC/MS) >3000 ng/mL (Cutoff=500)
== END 2024-06-29 13:22 | disposition home or self-care (01) ==
LOC: ER 18:02 → 2ND 18:16
PROVIDERS: Admitting Provider Student in an Organized Health Care Education/Training Program; Emergency Provider Student in an Organized Health Care Education/Training Program; Visit Provider Student in an Organized Health Care Education/Training Program
DX: G45.9 Transient cerebral ischemic attack, unspecified (principal); E78.5 Hyperlipidemia, unspecified; E66.9 Obesity, unspecified; F31.89 Other bipolar disorder; F41.9 Anxiety disorder, unspecified; F17.210 Nicotine dependence, cigarettes, uncomplicated; I69.322 Dysarthria following cerebral infarction; I69.392 Facial weakness following cerebral infarction; F12.90 Cannabis use, unspecified, uncomplicated; Z91.148 Patient's other noncompliance with medication regimen for other reason; Z68.31 Body mass index [BMI] 31.0-31.9, adult; I10 Essential (primary) hypertension
CPT/HCPCS: 36415; 70450; 70496; 70498; 70551; 71045; 80053; 80061; 80307; 80320; 80324; 81001; 83036; 83735; 84484; 84703; 85025; 85610; 85730; 93306; 97163; 97166; 99291; G0378; J1650; Q9967

== ENCOUNTER 2025-02-08 16:34 | Emergency (ER) | payer MEDICAID, SELFPAY ==
[2025-02-08] VITALS (12 sets, daily range): BP systolic 173–225; BP diastolic 105–165; PULSE 63–91; RESP 14–23; TEMP 36.7–36.8; O2SAT 95–100; BMI 34.3
--- NOTE | 2025-02-08 16:38 | ECG_ITS ---
APPROVED REPORT Exam: Resting ECG HR:82 bpm ECG Measurements Heart Rate 82 AXES MA 145 P 56 QRSd 101 QRS 49 QT 401 T 79 QTc 439 Conclusion SINUS RHYTHM NORMAL ECG Electronically signed by : SOHEILA TINSLEY, 02/11/2025 06:46:59
--- NOTE | 2025-02-08 16:38 | CT_ITS ---
PROCEDURE INFORMATION: Exam: CT Head Without Contrast Exam date and time: 02/08/2025 4:41 PM Age: 49 years old Clinical indication: Stroke-like symptoms; Altered mental status/memory loss; Additional info: Possible stroke TECHNIQUE: Imaging protocol: Computed tomography of the head without contrast. Radiation optimization: All CT scans at this facility use at least one of these dose optimization techniques: automated exposure control; mA and/or kV adjustment per patient size (includes targeted exams where dose is matched to clinical indication); or iterative reconstruction. Other technique: STROKE PROTOCOL was implemented. COMPARISON: 1. MR HEAD/BRAIN WO CON 06/29/2024 10:[address] HEAD/BRAIN WO CON 06/28/2024 5:07 PM FINDINGS: Brain: A hypodense lacunar infarct is visualized involving the anterior limb of the right internal capsule and lentiform nucleus, with progression compared to the previous CT. Acute/subacute on chronic lacunar infarct is considered. A hypodense chronic lacunar infarct is visualized within the left basal ganglia and amaya radiata. A subtle hypodense lacunar infarct is again visualized within the right thalamus. A tiny stable hypodense lacunar infarct is visualized within the left thalamus. There is extensive cerebral white matter hypodensity again visualized, nonspecific as to etiology. Small vessel ischemic disease and demyelination are within the differential. The acuity of the white matter disease is indeterminate. No acute intracranial hemorrhage is visualized. There is no midline shift. Cerebral ventricles: Mild stable ventriculomegaly. Paranasal sinuses: Visualized sinuses are unremarkable. No fluid levels. Mastoid air cells: No mastoid effusion. Bones: The calvarium demonstrates no evidence for a depressed fracture. Soft tissues: Unremarkable. IMPRESSION: 1. A lacunar infarct is visualized involving the right basal ganglia, with progression compared to the previous CT. Acute/subacute on chronic lacunar infarct is considered. Correlation with MRI recommended, as clinically indicated. 2. A chronic lacunar infarct is visualized within the left basal ganglia and amaya radiata. A subtle hypodense lacunar infarct is again visualized within the right thalamus. A tiny stable hypodense lacunar infarct is visualized within the left thalamus. 3. Mild stable ventriculomegaly. 4. There is extensive cerebral white matter hypodensity again visualized, nonspecific as to etiology. Small vessel ischemic disease and demyelination are within the differential. ASSESSMENT: ASPECTS (Tracey Stroke Program Early CT Score) is 8.
--- NOTE | 2025-02-08 16:38 | CT_ITS ---
PROCEDURE INFORMATION: Exam: CTA Head With Contrast, Arteriography Exam date and time: 02/08/2025 4:43 PM Age: 49 years old Clinical indication: Stroke-like symptoms; Altered mental status/memory loss; Additional info: Possible stroke TECHNIQUE: Imaging protocol: Computed tomographic angiography of the head with contrast. Exam focused on the arteries. 3D rendering (Not supervised by radiologist): MIP and/or 3D reconstructed images were created by the technologist. Radiation optimization: All CT scans at this facility use at least one of these dose optimization techniques: automated exposure control; mA and/or kV adjustment per patient size (includes targeted exams where dose is matched to clinical indication); or iterative reconstruction. Contrast material: ISOVUE 370; Contrast volume: 80 ml; Contrast route: INTRAVENOUS (IV); COMPARISON: CT ANGIO HEAD 06/28/2024 5:15 PM FINDINGS: ANTERIOR CIRCULATION: Right internal carotid artery: Intracranial segment is patent with no significant stenosis. No aneurysm. Right middle cerebral artery: Mild stenosis of the M1 segment of the right MCA distally. Mild stenosis also visualized of an M2 segment. Artifact is favored over stenosis of an M3 segment. No large vessel occlusion is visualized. No visualized aneurysm. Right anterior cerebral artery: Mild hypoplasia of the right VITO. No large vessel occlusion. No visualized aneurysm. Left internal carotid artery: Intracranial segment is patent with no significant stenosis. No aneurysm. Left middle cerebral artery: Mild stenosis involving an M2 segment of the left MCA. No large vessel occlusion. No visualized aneurysm. Left anterior cerebral artery: No occlusion or significant stenosis. No aneurysm. POSTERIOR CIRCULATION: Right vertebral artery: No occlusion or significant stenosis. No aneurysm. Left vertebral artery: Mild stenosis is visualized of the V4 segment the left vertebral artery, with atherosclerosis. There is mild dominance of the left vertebral artery. Evaluation of the distal left vertebral artery is limited, and stenoses cannot be excluded. No significant stenosis or occlusion of the remaining left SOFTWARE SPECIALIST. No visualized aneurysm. Basilar artery: No occlusion or significant stenosis. No aneurysm. Right posterior cerebral artery: No occlusion or significant stenosis. No aneurysm. Left posterior cerebral artery: Mild irregular contour of the P2 segment of the left SOFTWARE SPECIALIST. Veins: Evaluation of dural venous sinuses is limited by timing of injection. Brain: Lacunar infarcts are visualized within the bilateral basal ganglia. This is chronic on the left side. There is progression of lacunar infarction within the right basal ganglia, and acute or subacute on chronic lacunar infarction is considered. Refer to the head CT report from the same day. Cerebral ventricles: Mild stable ventriculomegaly. Bones/joints: No acute fracture. Soft tissues: Unremarkable. IMPRESSION: 1. No large vessel arterial occlusion on this CTA head. 2. Mild stenosis is visualized of the V4 segment the left vertebral artery. 3. Mild bilateral MCA stenoses. 4. There is progression of lacunar infarction within the right basal ganglia, and acute or subacute on chronic lacunar infarction is considered. Correlation with MRI recommended, as clinically indicated.
--- NOTE | 2025-02-08 16:38 | CT_ITS ---
PROCEDURE INFORMATION: Exam: CTA Neck With Contrast Exam date and time: 02/08/2025 4:43 PM Age: 49 years old Clinical indication: Stroke-like symptoms; Altered mental status/memory loss; Additional info: Possible stroke TECHNIQUE: Imaging protocol: Computed tomographic angiography of the neck with contrast. Exam focused on the cervical segments of the vasculature. 3D rendering (Not supervised by radiologist): MIP and/or 3D reconstructed images were created by the technologist. Radiation optimization: All CT scans at this facility use at least one of these dose optimization techniques: automated exposure control; mA and/or kV adjustment per patient size (includes targeted exams where dose is matched to clinical indication); or iterative reconstruction. Contrast material: ISO 370; Contrast volume: 80 ml; Contrast route: INTRAVENOUS (IV); COMPARISON: CT ANGIO NECK 06/28/2024 5:15 PM FINDINGS: Right common carotid artery: Artifact limits evaluation of the right common carotid artery, without occlusion. Right internal carotid artery: There is increased tortuosity of the right internal carotid artery, without stenosis using NASCET criteria. Right external carotid artery: No occlusion or significant stenosis. Left common carotid artery: Artifact limits evaluation of the proximal left common carotid artery, without occlusion. No significant stenosis or occlusion of the remaining left common carotid artery. Left internal carotid artery: There is mild irregular contour of the proximal left internal carotid artery. No stenosis using NASCET criteria. Left external carotid artery: No occlusion or significant stenosis. Right vertebral artery: No significant stenosis. No dissection or occlusion. Left vertebral artery: Mild dominance of the left vertebral artery is visualized. Mild stenosis of the proximal V2 segment of the left vertebral artery, stable compared to the previous exam. Brachiocephalic artery: A bovine aortic arch is visualized, with common origin of the brachiocephalic artery and left common carotid artery. Thyroid: Within the isthmus of the thyroid, there is a 6-7 mm hypodense nodule. Lymph nodes: Scattered nonspecific cervical lymph nodes are visualized. Soft tissues: No significant soft tissue swelling. Bones/joints: The cervical lordosis is straightened. Degenerative changes are visualized involving the cervical and upper thoracic spine. Artifact limits evaluation of the spinal canal. A disc herniation is identified at C5-C6, with moderate spinal canal stenosis. Varying degrees of neural foraminal narrowing are visualized at multiple cervical levels. Lungs: Nonspecific increased interstitial markings are visualized within the lungs bilaterally. The previously visualized left upper lobe lung nodule has resolved. IMPRESSION: 1. No stenosis of the extracranial internal carotid arteries bilaterally using NASCET criteria. 2. Mild stable stenosis of the proximal V2 segment of the left vertebral artery. 3. Degenerative changes are visualized involving the cervical and upper thoracic spine. A disc herniation is identified at C5-C6, with moderate spinal canal stenosis. A follow-up MRI cervical spine is recommended, as clinically indicated. 4. Thyroid nodule. 5. The previously visualized left upper lobe lung nodule has resolved. 6. Additional findings described above. COMMENTS: Consistent with the [employer]'s Incidental Findings Committee white paper (J Am James Radiol 2015): In patients aged 35 years and older with an incidental thyroid nodule equal to or greater than 1.[address], MRI or extrathyroidal US, further evaluation with dedicated thyroid US is recommended for patients with normal life expectancy and without comorbidities. For smaller nodules without suspicious features, no further evaluation or follow up is recommended. REFERENCES: NASCET CRITERIA. The degree of stenosis in the cervical segment of the internal carotid artery is based on NASCET criteria. Normal is no stenosis. Mild is less than 50% stenosis. Moderate is 50-69% stenosis. Severe is 70% to 99% stenosis. Total occlusion is no detectable patent lumen.
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
[2025-02-08] MEDS: IOPAMIDOL-370 (76%);100ML BOTTLE 80 ML IV (16:45)
[2025-02-08] MEDS: SODIUM CHLORIDE 0.9% 10ML SYR (RAD ONLY) 10 ML IV (16:45)
[2025-02-08] MEDS: 0.9 % SODIUM CHLORIDE 50 ML VIAL IV (16:45)
[2025-02-08] MEDS: LABETALOL 20MG/4ML SYRINGE 10 MG IV ×2 (17:18→18:22)
[2025-02-08 17:23] LABS: Hematocrit 45.7 % (37.0-47.0); Hemoglobin 15.5 g/dL (12.2-16.2); Immature Granulocytes % 0.1 %; Mean Corpuscular HGB Conc 33.9 g/dL (31.8-35.4); Mean Corpuscular Hemoglobin 28.6 pg (27.0-31.2); Mean Corpuscular Volume 84.3 fl (81-99); Nucleated Red Blood Cells % 0 %; Platelet Count 266 K/mm3 (142-424); Red Blood Count 5.42 M/mm3 (4.20-5.40); Red Cell Distribution Width-SD 40.4 fL; White Blood Count 8.3 K/mm3 (4.8-10.8)
[2025-02-08 17:41] LABS: Alanine Aminotransferase 16 U/L (12-78); Albumin Level 4.1 g/dl (3.5-5.0); Albumin/Globulin Ratio 1.2 (1.1-1.8); Alkaline Phosphatase 40 U/L (38-126); Anion Gap 18.0 mEq/L (5-15); Aspartate Amino Transferase 37 U/L (14-36); Bilirubin,Total 1.2 mg/dl (0.2-1.3); Blood Urea Nitrogen 14 mg/dl (7-17); Calcium 8.9 mg/dl (8.4-10.2); Carbon Dioxide 22 mmol/L (22.0-30.0); Chloride 103 mmol/L (98-107); Cholesterol 174 mg/dl (140-200); Creatinine Clearance Estimated 122 mL/min (50-200); Creatinine,Serum 0.80 mg/dl (0.52-1.04); Estimated Glomerular Filt Rate 76 ml/min (>60); GFR (African American) 92 ML/MIN (>60); Globulin 3.3 g/dL (1.3-3.2); Glucose 115 mg/dl (74-100); HDL Cholesterol 44 mg/dl (40-60); Sodium 137 mmol/L (136-145); Total Protein,Serum 7.4 g/dl (6.3-8.2); Triglycerides 134 mg/dl (30-150)
[2025-02-08 17:47] LABS: Activated Partial Thrombo Time 25.6 seconds (22.8-30.6); INR 0.98 (0.9-1.1); Prothrombin Time 10.9 seconds (10.1-12.5)
[2025-02-08 17:52] LABS: Troponin I 0.04 ng/ml (0.00-0.034)
[2025-02-08] MEDS: ASPIRIN 81MG CHEWABLE TABLET 81 MG PO (17:59)
== END 2025-02-08 20:57 | disposition other institution (70) ==
PROVIDERS: Nurse Practitioner; Emergency Provider Student in an Organized Health Care Education/Training Program; PCP Nurse Practitioner Family
DX: I63.9 Cerebral infarction, unspecified (principal); R47.81 Slurred speech; R29.704 NIHSS score 4; I10 Essential (primary) hypertension; E78.5 Hyperlipidemia, unspecified; Z86.73 Personal history of transient ischemic attack (TIA), and cerebral infarction without residual deficits
CPT/HCPCS: 70450; 70496; 70498; 80053; 80061; 80320; 84484; 85025; 85610; 85730; 93005; 96374; 96376; 99285; 99291; J1920; Q9967